=== PATIENT | male | born 1965 | race Caucasian/White ===

== ENCOUNTER 2017-11-20 12:46 | Emergency (ER) | payer OTHER ==
[~2017-11-20] VITALS: Ht 177.8 cm; Wt 109.8 kg
[2017-11-20] MEDS ORDERED: LISINOPRIL10 MG PO (13:07)
[2017-11-20] MEDS ORDERED: LIPITOR40 MG PO (13:08)
[2017-11-20] MEDS ORDERED: HUMULIN N100 UNIT/1 SUB-Q (16:48)
[2017-11-20] MEDS ORDERED: NORVASC10 MG PO (16:49)
[2017-11-20] MEDS ORDERED: PRAVACHOL80 MG PO (16:50)
--- NOTE | 2017-11-20 22:50 | EKG ---
[facility] [address] [facility] [place], [place] [address] Signed Sinus rhythm with 1st degree AV block Nonspecific intraventricular conduction delay ST \T\ Marked T wave abnormality, consider anterolateral ischemia Abnormal ECG No previous ECGs available Confirmed by WENDY PINEDA MD ([id number]) on 11/20/2017 10:50:16 PM Electronically Signed By: WENDY PINEDA MD 11/20/17 2250 PATIENT NAME: JERALD BENDER Electrocardiogram DATE OF : 69 PHYSICIAN: WENDY PINEDA MD REPORT #: [id number] REPORT IS CONFIDENTIAL AND NOT TO BE RELEASED WITHOUT AUTHORIZATION
== END 2017-11-20 16:20 | disposition home or self-care (01) ==
LOC: ED 12:46
DX: R07.9 Chest pain, unspecified (principal); I71.2 Thoracic aortic aneurysm, without rupture; E11.9 Type 2 diabetes mellitus without complications; I10 Essential (primary) hypertension; E78.5 Hyperlipidemia, unspecified; Z88.1 Allergy status to other antibiotic agents; Z79.899 Other long term (current) drug therapy
CPT/HCPCS: 36415; 71045; 71275; 84484; 93005; 93010; 99284; J7030; Q9967

== ENCOUNTER → 2017-11-23 | Emergency (ER) | payer OTHER ==
[~2017-11-23] VITALS: Ht 177.8 cm; Wt 109.8 kg
[~2017-11-23] MED LIST: HUMULIN N100 UNIT/1 SUB-Q; LIPITOR40 MG PO; LISINOPRIL10 MG PO; NORVASC10 MG PO; PRAVACHOL80 MG PO
--- NOTE | 2017-11-24 17:13 | EKG ---
[facility] [address] [facility] [place] [address] Signed Sinus rhythm with 1st degree AV block with premature atrial complexes with aberrant conduction Nonspecific intraventricular conduction delay ST \T\ T wave abnormality, consider anterolateral ischemia Abnormal ECG Similar to EKG from 11/20/17 Confirmed by WENDY PINEDA MD ([id number]) on 11/24/2017 5:13:24 PM Electronically Signed By: WENDY PINEDA MD 11/24/17 1713 PATIENT NAME: BENDERJERALD Electrocardiogram DATE OF : 69 PHYSICIAN: WENDY PINEDA MD REPORT #: [id number] REPORT IS CONFIDENTIAL AND NOT TO BE RELEASED WITHOUT AUTHORIZATION
== END | disposition home or self-care (01) ==
LOC: ED 13:30
DX: R07.2 Precordial pain (principal); I71.2 Thoracic aortic aneurysm, without rupture; E78.5 Hyperlipidemia, unspecified; E11.9 Type 2 diabetes mellitus without complications; I10 Essential (primary) hypertension; Z87.891 Personal history of nicotine dependence; Z88.1 Allergy status to other antibiotic agents; Z88.8 Allergy status to other drugs, medicaments and biological substances; Z79.899 Other long term (current) drug therapy
CPT/HCPCS: 71045; 80053; 84484; 85025; 93005; 93010; 96374; 99285; J1644

== ENCOUNTER → 2018-05-14 | Emergency (ER) | payer OTHER ==
[~2018-05-14] VITALS: Ht 177.8 cm; Wt 107.0 kg
[~2018-05-14] MED LIST changes: +PLAVIX75 MG PO
--- OUTSIDE RECORDS SUMMARY | ~2018-05-14 | XMS | Clinical Summary ---
Demographics + + + | Address | [facility] | | | #[id number] [place] [address] | | |[place] [address] | + + + | Home Phone | | + + + | Preferred Language | Unknown | + + + | Marital Status | Single | + + + | Religion Affiliation | NRP | + + + [...] Phone | + + +---------+ + | NONE,Per Pt | ECON | Unknown | Unavailable | + + +---------+ + Care Team Providers + +------+ + | Care Handbag Designer Name | Role | Phone | + +------+ + | No Pcp Per Patient | PP | Unavailable | + +------+ + Source Comments [facility]YRELL is fully live on [facility] Allergies + + + + + + | Active Allergy | Reactions | Severity | Noted | Comments | | | | | Date | | + + + + + + | Erythromycin | Hives, Rash | | 11/24/19 | | | | | | 18 | | + + + + + + Current Medications + + +--------+---------+------+------+-------+ | Prescription | Sig. | Disp. | Refills | Star | End | Statu | | | | | | t | Date | s | | | | | | Date | | | + + +--------+---------+------+------+-------+ | lisinopril 40 mg | Take 40 mg by mouth | | | | | Activ | | oral | once daily. | | | | | e | | tabletIndications: | Indications: | | | | | | | hypertension | hypertension | | | | | | + + +--------+---------+------+------+-------+ | insulin NPH 100 | Inject 34 Units | | | | | Activ | | unit/mL [...] | | | | | + + +--------+---------+------+------+-------+ | aspirin EC 81 mg | Take 81 mg by mouth | | | | | Activ | | oral [...] | | | | | + + +--------+---------+------+------+-------+ | atorvastatin 80 mg | Take 1 [...] | | | | | + + +--------+---------+------+------+-------+ | carvedilol 6.25 mg | Take 1 tablet by | 60 | 0 | 04/1 | | Activ | | oral | mouth two times | tablet | | 03/29 | | e | | tabletIndications: | daily with meals. | | | 18 | | | | hypertension, Left | Administer with | | | | | | | Ventricular | food. Indications: | | | | | | | Dysfunction | hypertension, Left | | | | | | | following [place] | Ventricular | | | | | | | | Dysfunction | | | | | | | | following [place] | | | | | | + + +--------+---------+------+------+-------+ | clopidogrel 75 mg | Take 1 tablet by | 30 | 11 | 11/08 | | Activ | | oral | mouth once daily. | tablet | | 04/29 | | e | | tabletIndications: | Indications: Acute | | | 18 | | | | Acute Coronary | Coronary Syndrome, | | | | | | | Syndrome, Myocardial | Myocardial | | | | | | | Reinfarction | Reinfarction | | | | | | | Prevention, | Prevention, | | | | | | | Thrombosis | Thrombosis | | | | | | | Prevention after PCI | Prevention after PCI | | | | | | + + +--------+---------+------+------+-------+ | nitroglycerin 0.4 | Place 1 tablet under | 25 | 0 | 11/08 | | Activ | | mg sublingual | tongue every five | tablet | | 03/29 | | e | | tablet, | minutes as needed | | | 18 | | | | sublingualIndication | for chest pain. 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) | | + + + | S/P coronary artery stent placement | 11/25/2017 | + + + | Ischemic cardiomyopathy | 11/25/2017 | + + + | Ascending aortic aneurysm (HCC) | 11/25/2017 | + + + | HLD (hyperlipidemia) | 11/23/2017 | + + + | HTN (hypertension) | 11/23/2017 | + + + | Type 2 diabetes mellitus (HCC) | 11/23/2017 | + + + Social [...] on file | | + + + Last Filed Vital Signs + + + + | Vital Sign | Reading | Time Taken | + + + + | Blood Pressure | 152/86 | 11/25/2017 3:44 PM PDT | + + + + | Pulse | 60 | 11/25/2017 3:44 PM PDT | + + + + | Temperature | 37 C (98.6 F) | 11/25/2017 3:44 PM PDT | + + + + | Respiratory Rate | 18 | 11/25/2017 3:44 PM PDT | + + + + | Oxygen Saturation | 98% | 11/25/2017 3:44 PM PDT | + + + + | Inhaled Oxygen | - | - | | Concentration | | | + + + + | Weight | 106.3 kg (234 lb 5.6 | 11/25/2017 7:41 AM PDT | | | oz) | | + + + + | Height | 177.8 cm (5' 10") | 11/23/2017 8:42 PM PDT | + + + + | Body Mass Index | 33.63 | 11/25/2017 7:41 AM PDT | + + + + Plan of Treatment + + + + + | Health Maintenance | Due Date | Last Done | Comments | + + + + + | Pneumococcal (Adult) | | | | | (1 of 1 - PPSV23) | 7 | | | + + + + + | Influenza (Flu) | | 05/08/2013, 05/24/2012, | | | vaccination (#1) | 8 | 06/18/2011, Additional history | | | | | exists | | + + + + + Implants + +-------+-------+ +--------+--------+--------+ | Implanted | Type | Area | Manufacture | Device | Expira | Model | | | | | r | | tion | / | | | | | | Identi | Date | Serial | | | | | | fier | | / Lot | + +-------+-------+ +--------+--------+--------+ | Stent-11/24/2017Implanted: | STENT | Chest | | | 08/10/ | / | | Qty: 1 on 11/24/2017 by | | | | | 2020 | /[id number] | | [place] | | | | | | [id number] | + +-------+-------+ +--------+--------+--------+ | Stent-11/24/2017Implanted: | STENT | Chest | | | 01/09/ | / | | Qty: 1 on 11/24/2017 by | | | | | 2018 | /[id number] | | Felice Dele[place] | | | | | | [id number] | + +-------+-------+ +--------+--------+--------+ Results Not on filefrom Last 3 Months Insurance + +--------+ +--------+ + + | Payer | Benefi | Subscriber | Type | Phone | Address | | | t Plan | ID | | | | | | / | | | | | | | Group | | | | | + +--------+ +--------+ + + | [facility] | [facility] | xxxxxxxxx | Agency | [phone] | [address] [address] | | PARTNER | [address] | | | [phone] | [place] [address] | | | HLTH | | | | | | | PARTNE | | | | | | | [address] | | | | | | | [place] | | | | | + +--------+ +--------+ + + + +--------+ +--------+ + + | Guarantor Name | Accoun | Relation to | Date | Phone | Billing Address | | | t Type | Patient | of | | | | | | | | | | + +--------+ +--------+ + + | JERALD BENDER | Person | Self [birth year] | Home: | [facility] | | | al/Fam | | 1965 | [phone] | Correctional | | | karan | | | [phone] | [address] | | | | | | | [address] | | | | | | | [place] [address] | + +--------+ +--------+ + + | [facility] | Agency | Other | [birth year] | Home: | [place] | | [place] | | | 1899 | [phone]- | Correctional | | | | | | [phone] | [facility] [address] | | | | | | | [address] | | | | | | | [place] [address] | + +--------+ +--------+ + +
--- OUTSIDE RECORDS SUMMARY | ~2018-05-14 | XMS | Clinical Summary ---
Demographics + + + | Address | [facility] | | | [id number] [place] [address] | | |[place] [address] | + + + | Home Phone | | + + + | Preferred Language | Unknown | + + + | Marital Status | Single | + + + | Rastafari Affiliation | NRP | + + + [...] Team Providers + +------+ + | Care Materials Handling Equipment Operator Name | Role | Phone | + +------+ + | No Pcp Per Patient | PP | Unavailable | + +------+ + Source Comments [facility]LL is fully live [facility] Allergies + + + + [...] | | | | | | following [place] | Ventricular | | | | | | | | Dysfunction | | | | | | | | following IN | | | | | | + [...] + + | Coronary artery disease involving [place] coronary artery of | 11/25/2017 | | tejon heart with unstable angina pectoris (HCC) | [...] | | | | | 2020 | /[id number] | | [place]ice [place] | | | | | | [address] | + +-------+-------+ +--------+--------+--------+ | Stent-11/24/2017Implanted: | STENT | Chest | | | 01/09/ | / | | Qty: 1 on 11/24/2017 by | | | | | 2018 | /[id number] | | Felice De[place] | | | | | | [address] | + +-------+-------+ +--------+--------+--------+ Results Not on [...] | [facility] | [phone] | Agency | [phone] | [address] [address] | | PARTNER | [address] | | | [phone] | [place] [address] | | | HLTH | | | [...] | + +--------+ +--------+ + + | EJRALD BENDER | Person | Self | [birth year] | Home: | [facility] | | | al/Fam | | 1965 | [phone] | Correctional | | | [address]aran | | | [phone] | [address] | | | | | | | [address] | | | | | | | [place] [address] | + +--------+ +--------+ + + | [facility] | Agency | Other | [birth year]/10/ | Home: | [place] | | [place] | | | 1899 | [phone]- | Correctional | | | | | | [phone] | [facility] [address] | | | | | | | [address] | | | | | | | [place] [address] | + +--------+ +--------+ + +
--- NOTE | 2018-05-14 19:40 | EKG ---
[facility] [address] [facility] [place] [address] Signed Sinus rhythm with 1st degree AV block Nonspecific intraventricular conduction delay Borderline ECG When compared with ECG of 23-NOV-2017 13:31, aberrant conduction is no longer present Nonspecific T wave abnormality, improved in Inferior leads T wave inversion no longer evident in Anterolateral leads Confirmed by AUSTIN MINAYA DO ([id number]) on 05/14/2018 7:39:54 PM Electronically Signed By: AUSTIN MINAYA DO 05/14/18 194 PATIENT NAME: NAPOLEONJERALD Electrocardiogram DATE OF : 69 PHYSICIAN: AUSTIN MINAYA DO REPORT #: [id number] REPORT IS CONFIDENTIAL AND NOT TO BE RELEASED WITHOUT AUTHORIZATION
--- NOTE | 2018-05-17 13:59 | NUR ---
ER NOTES AND SUMMARY FAXED TO [facility] PER RADHA REQUEST. RECIEVED FAX CONFIRMATION OF THIS.
== END ==
LOC: ED 18:46
DX: I10 Essential (primary) hypertension (principal); E87.6 Hypokalemia; E11.9 Type 2 diabetes mellitus without complications; E78.5 Hyperlipidemia, unspecified; Z88.1 Allergy status to other antibiotic agents; Z79.4 Long term (current) use of insulin; Z79.899 Other long term (current) drug therapy
CPT/HCPCS: 71045; 80053; 85025; 93005; 93010; 96374; 96375; 99284; J0360; J2405

== ENCOUNTER 2019-12-15 18:14 | Emergency (ER) | payer OTHER ==
[~2019-12-15] VITALS: Ht 177.8 cm; Wt 107.0 kg
--- OUTSIDE RECORDS SUMMARY | ~2019-12-15 | XMS | Encounter Summary ---
Demographics + + + | Address | [facility] | | | [id number] [place] [address] | | |[place] [address] | + + + | Home Phone | | + + + | Preferred Language | Unknown | + + + | Marital Status | Single | + + + | Presybeterian Affiliation | NRP | + + + | Race | White | + + + | Ethnic Group | Not or | + + + Author + + + | Author | [facility] | + + + | Organization | [facility] | + + + | Address | Unknown | + + + | Phone | Unavailable | + + + Support + + +---------+ + | Name | Relationship | Address | Phone | + + +---------+ + | Per NONE, PT | ECON | Unknown | Unavailable | + + +---------+ + Care Team Providers + +------+ + | Care Manager Process Excellence Name | Role | Phone | + +------+ + PCP | Unavailable | + +------+ + Encounter Details +--------+ + + + + | Date | Type | Department | Care Team | Description | +--------+ + + + + | 11/23/ | ED Progress | [facility] | Aj Farnsworth | ED Progress Note | | 2013 | | [address] | MD [place] Healy | | | | Note-Transc | [place], [place] | [facility] | | | | ribed | [phone] | [address] | | | | | | [place] [address] | | | | | | [phone] | | | | | | | | +--------+ + + + + Social History + +-------+ +--------+------+ | Tobacco Use | Types | Packs/Day | Years | Date | | | | | Used | | + +-------+ +--------+------+ | Never Assessed | | | | | + +-------+ +--------+------+ + + + | Sex Assigned at | Date Recorded | | | | + + + | Not on file | | + + + + + + + | Job Start Date | Occupation | Industry | + + + + | Not on file | Not on file | Not on file | + + + + + + + + | Travel History | Travel Start | Travel End | + + + + + + | No recent travel history available. | + + documented as of this encounter Plan of Treatment Not on filedocumented as of this encounter Visit Diagnoses Not on filedocumented in this encounter"
--- OUTSIDE RECORDS SUMMARY | ~2019-12-15 | XMS | Encounter Summary ---
Demographics + + + | Address | [facility] | | | [id number] [place] [address] | | |[place] [address] | + + + | Home Phone | | + + + | Preferred Language | Unknown | + + + | Marital Status | Single | + + + | Rastafarian Affiliation | NRP | + + + | Race | White | + + + | Ethnic Group | Not or | + + + Author + + + | Author | [place] [facility] | + + + | Organization | [facility] | + + + | Address | Unknown | + + + | Phone | Unavailable | + + + Support + + +---------+ + | Name | Relationship | Address | Phone | + + +---------+ + | Per NONE, PT | ECON | Unknown | Unavailable | + + +---------+ + Care Team Providers + +------+ + | Care Graduate Internship Name | Role | Phone | + +------+ + | No Pcp Per Patient | PCP | Unavailable | + +------+ + Reason for Visit AUTH/CERT +--------+--------+ + + + + | Status | Reason | Specialty | Diagnoses / | Referred By | Referred To | | | | | Procedures | Contact | Contact | +--------+--------+ + + + + | | | | | | | +--------+--------+ + + + + Encounter Details +--------+ + + + + | Date | Type | Department | Care Team | Description | +--------+ + + + + | 11/24/ | Hospital | Cardiac General Ledger Bookkeeper | [address] | No Show | | 2017 | Encounter | at [facility] [address] | MD Willi [address] | | | | | [address] | [place], [place] | | | | | [facility], | [address] | | | | | [place], [place] | [phone] | | | | | [address] | | | | | | [phone] | | | +--------+ + + + [...] + + documented as of this encounter Functional Status + + + + | Functional Status | Response | Date of Assessment | + + + + | Because of a physical, mental, or emotional | No | 11/24/2017 | | condition, do you have serious difficulty | | | | doing errands alone such as visiting the | | | | doctor? | | | + + + + + + + + | Cognitive Status | Response | Date of Assessment | + + + + | Because of a physical, mental, or emotional | No | 11/24/2017 | | condition, do you have serious difficulty | | | | concentrating, remembering, or making | | | | decisions? (5 years old or older) | | | + + + + documented as of this encounter Medications at Time of Discharge + + + +---------+ + + | Medication | Sig | Dispensed | Refills | Start | End Date | | | | | | Date | | + + + +---------+ + + | aspirin EC 81 mg | Take 81 mg by mouth | | 0 | | | | oral tablet,delayed | once daily. | | | | | | release | Indications: | | | | | | (DR/EC)Indications: | myocardial | | | | | | myocardial | infarction | | | | | | infarction | prevention | | | | | | prevention | | | | | | + + + +---------+ + + | atorvastatin 80 mg | Take 1 tablet by | 30 | 0 | 11/27/19 | | | oral | mouth once daily. | tablet | | 18 | | | tabletIndications: | Indications: | | | | | | atherosclerotic | atherosclerotic | | | | | | cardiovascular | cardiovascular | | | | | | disease, | disease, | | | | | | hyperlipidemia, | hyperlipidemia, | | | | | | myocardial | myocardial | | | | | | infarction | infarction | | | | | | prevention, | prevention, | | | | | | treatment to slow | treatment to slow | | | | | | progression of | progression of | | | | | | coronary artery | coronary artery | | | | | | disease | disease | | | | | + + + +---------+ + + | carvedilol 6.25 mg | Take 1 tablet by | 60 | 0 | 11/26/19 | | | oral | mouth two times | tablet | | 18 | | | tabletIndications: | daily with meals. | | | | | | hypertension, left | Administer with | | | | | | ventricular | food. Indications: | | | | | | dysfunction | hypertension, Left | | | | | | following [place] | Ventricular | | | | | | | Dysfunction | | | | | | | following MS | | | | | + + + +---------+ + + | clopidogrel 75 mg | Take 1 tablet by | 30 | 11 | 11/27/19 | | | oral | mouth once daily. | tablet | | 18 | | | tabletIndications: | Indications: Acute | | | | | | acute coronary | Coronary Syndrome, | | | | | | syndrome, myocardial | Myocardial | | | | | | reinfarction | Reinfarction | | | | | | prevention, | Prevention, | | | | | | thrombosis | Thrombosis | | | | | | prevention after PCI | Prevention after PCI | | | | | + + + +---------+ + + | insulin NPH 100 | Inject 34 Units | | 0 | | | | unit/mL (3 mL) | under the skin | | | | | | subcutaneous insulin | (SUBC) once daily in | | | | | | penIndications: | the morning. | | | | | | type 2 diabetes | Indications: type 2 | | | | | | mellitus | diabetes mellitus | | | | | + + + +---------+ + + | lisinopril 40 mg | Take 40 mg by mouth | | 0 | | | | oral | once daily. | | | | | | tabletIndications: | Indications: | | | | | | hypertension | hypertension | | | | | + + + +---------+ + + | nitroglycerin 0.4 | Place 1 tablet under | 25 | 0 | 04/18/20 | | | mg sublingual | tongue every five | tablet | | 18 | | | tablet, | minutes as needed | | | | | | sublingualIndication | for chest pain. | | | | | | s: angina | Place under tongue | | | | | | | and allow to | | | | | | | dissolve. | | | | | | | Administer every 5 | | | | | | | minutes, max of 3 | | | | | | | doses in 15 minutes. | | | | | | | Indications: Angina | | | | | + + + +---------+ + + documented as of this encounter Plan of Treatment + + +--------+ + + | Name | Type | Priori | Associated Diagnoses | Order Schedule | | | | ty | | | + + +--------+ + + | ACT, POC-CCL ONLY | Lab - Point | Routin | | As Needed for 10 | | | of Care | e | | Occurrences starting | | | Interface | | | 11/26/2017, 3 | | | | | | completed | + + +--------+ + + documented as of this encounter Procedures + +--------+ + + + | Procedure Name | Priori | Date/Time | Associated Diagnosis | Comments | | | ty | | | | + +--------+ + + + | ACT, POC-CCL ONLY | Routin | 11/24/2017 | | Results for this | | | e | 2:46 PM | | procedure are in the | | | | PDT | | results section. | + +--------+ + + + | ACT, POC-CCL ONLY | Routin | 11/24/2017 | | Results for this | | | e | 2:28 PM | | procedure are in the | | | | PDT | | results section. | + +--------+ + + + | ACT, POC-CCL ONLY | Routin | 11/24/2017 | | Results for this | | | e | 2:23 PM | | procedure are in the | | | | PDT | | results section. | + +--------+ + + + | CAMP BOSS | Routin | 11/24/2017 | | Results for this | | EMERGENT/IMMEDIATE | e | 2:17 PM | | procedure are in the | | PROCEDURE | | PDT | | results section. | + +--------+ + + + | CARDIOLOGY | | 11/24/2017 | | Results for this | | | | 12:00 AM | | procedure are in the | | | | PDT | | results section. | + +--------+ + + + documented in this encounter Results SILVIA MAZARIEGOS-CCL ONLY (11/24/2017 2:46 PM PDT) + +-------+ + + + | Component | Value | Ref Range | Performed | Pathologist | | | | | At | Signature | + +-------+ + + + | ACT, POC | 193 | 90 - 150 | [facility] | | | [facility] | | | [facility] | | | [facility] | | | [facility] | | | | | | OF CARE | | | | | | TESTS | | + +-------+ + + + + + | Specimen | + + | Blood - Blood | | (substance) | + + + + + + + | Performing | Address | City/State/Zipcode | Phone Number | | Organization | | | | + + + + + | [facility] | [address] | [place], [place] | | | [facility] | [address] | [address] | | | TESTS | | | | + + + + + ACT POC-CCL ONLY (11/24/2017 2:28 PM PDT) + +-------+ + + + | Component | Value | Ref Range | Performed | Pathologist | | | | | At | Signature | + +-------+ + + + | ACT, POC | 227 | 90 - 150 | [facility] - | | | CCL | | | [facility] | | | INTR[facility] | | | [facility] | | | | | | OF CARE | | | | | | TESTS | | + +-------+ + + + + + | Specimen | + + | Blood - Blood | | (substance) | + + + + + + + | Performing | Address | City/State/Zipcode | Phone Number | | Organization | | | | + + + + + | [facility] | [address] | [place], [place] | | | [facility] | [address] | [address] | | | TESTS | | | | + + + + + ACT, POC-CCL ONLY (11/24/2017 2:23 PM PDT) + +-------+ + + + | Component | Value | Ref Range | Performed | Pathologist | | | | | At | Signature | + +-------+ + + + | ACT, POC | 163 | 90 - 150 | [facility] | | | [facility] | | | [facility] | | | [facility]TR[facility] | | | [place] | | | | | | OF CARE | | | | | | TESTS | | + +-------+ + + + + + | Specimen | + + | Blood - Blood | | (substance) | + + + + + + + | Performing | Address | City/State/Zipcode | Phone Number | | Organization | | | | + + + + + | [facility] | [address] | [place], [place] | | | [place] [facility] | [address] | [address] | | | TESTS | | | | + + + + + CAMP BOSS EMERGENT/IMMEDIATE PROCEDURE (11/24/2017 2:17 PM PDT) + + | Specimen | + + | | + + + + + | Narrative | Performed At | + + + | Procedure performed in the Cardiac General Ledger Bookkeeper. See procedure notes | | | for details. | | + + + CARDIOLOGY (11/24/2017 12:00 AM PDT) + + + | Narrative | Performed At | + + + | | | + + + documented in this encounter Visit Diagnoses Not on filedocumented in this encounter"
--- OUTSIDE RECORDS SUMMARY | ~2019-12-15 | XMS | Encounter Summary ---
Demographics + + + | Address | [facility] | | | [id number] [place] [address] | | |[place] [address] | + + + | Home Phone | | + + + | Preferred Language | Unknown | + + + | Marital Status | Single | + + + | Christian Affiliation | NRP | + + + | Race | White | + + + | Ethnic Group | Not or | + + + Author + + + | Author | [place] [facility] | + + + | Organization | [facility] | + + + | Address | Unknown | + + + | Phone | Unavailable | + + + Support + + +---------+ + | Name | Relationship | Address | Phone | + + +---------+ + | Per NONE, PT | ECON | Unknown | Unavailable | + + +---------+ + Care Team Providers + +------+ + | Care Medical Auditor Name | Role | Phone | + +------+ + | No Pcp Per Patient | PCP | Unavailable | + +------+ + Encounter Details +--------+ + + + + | Date | Type | Department | Care Team | Description | +--------+ + + + + | 11/20/ | Document-Sc | Health Information | Unknown . | | | 2018 | anned | Services [id number] | | | | | [address] | | | | | | Mailcode: [id number] | | | | | | [facility] | | | | | | [place], [place] | | | | | | [address] | | | | | | [phone] | | | +--------+ + + + [...] Not on filedocumented as of this encounter Procedures + +--------+ + + + | Procedure Name | Priori | Date/Time | Associated Diagnosis | Comments | | | ty | | | | + +--------+ + + + | RADIOLOGY | | 11/20/2017 | | Results for this | | | | 12:00 AM | | procedure are in the | | | | PDT | | results section. | + +--------+ + + + documented in this encounter Results RADIOLOGY (11/20/2017 12:00 AM PDT) + + + | Narrative | Performed At | + + + | | | + + + documented in this encounter Visit Diagnoses Not on filedocumented in this encounter"
--- OUTSIDE RECORDS SUMMARY | ~2019-12-15 | XMS | Encounter Summary ---
Demographics + + + | Address | [facility] | | | #[id number] [place] [address] | | |[place] [address] | + + + | Home Phone | | + + + | Preferred Language | Unknown | + + + | Marital Status | Single | + + + | Restoration Affiliation | NRP | + + + | Race | White | + + + | Ethnic Group | Not or | + + + Author + + + | Author | [facility] | + + + | Organization | [facility] | + + + | Address | Unknown | + + + | Phone | Unavailable | + + + Support + + +---------+ + | Name | Relationship | Address | Phone | + + +---------+ + | Per NONE, PT | ECON | Unknown | Unavailable | + + +---------+ + Care Team Providers + +------+ + | Care Tree Inspector Name | Role | Phone | + [...] + | 11/24/ | Hospital | [facility] | [address] | No Show | | 2017 | Encounter | at [facility] [address] | MD Willi [address] | | | | | [address] | [place], [place] | | | | | [facility] | [address] | | | | | [place], [place] | [phone] | | | | | [address] | | | | | | [phone] | | | +--------+ + + + [...] | | | | | | following [place] | Ventricular | | | | | | | Dysfunction | | | | | | | following [place] | | | | | + + [...] | + +--------+ + + + | [facility] | Routin | 11/24/2017 | | Results [...] - [place] | [address] | [place], [place] | | | [facility] | [address] | [address] | | | TESTS | | | [...] [place] | [address] | [place], [place] | | | [facility] | [address] | [address] | | | TESTS | | | [...] [facility] | [address] | [place], [place] | | | [facility] | [address] | [address] | | | TESTS | | | | + + + + + [facility] EMERGENT/IMMEDIATE PROCEDURE (11/24/2017 2:17 PM PDT) + + | Specimen | + + | | + + + + + | Narrative | Performed At | + + + | Procedure performed in the [facility]. See procedure notes | | | for details. | | + + + CARDIOLOGY (11/24/2017 12:00 AM PDT) + + + | Narrative | Performed At | + + + | | | + + + documented in this encounter Visit Diagnoses Not on filedocumented in this encounter"
--- OUTSIDE RECORDS SUMMARY | ~2019-12-15 | XMS | Clinical Summary ---
Demographics + + + | Address | [facility] | | | [address] [place] [address] | | |[place] [address] | + + + | Home Phone | | + + + | Preferred Language | Unknown | + + + | Marital Status | Single | + + + | Mormon Affiliation | NRP | + + + | Race | White | + + + | Ethnic Group | Not or | + + + Author + + + | Author | [facility] | + + + | Organization | [facility] | + + + | Address | Unknown | + + + | Phone | Unavailable | + + + Support + + +---------+ + | Name | Relationship | Address | Phone | + + +---------+ + | Per NONE, PT | ECON | Unknown | Unavailable | + + +---------+ + Care Team Providers + +------+ + | Care Payroll Services Analyst Name | Role | Phone | + +------+ + | No Pcp Per Patient | PCP | Unavailable | + +------+ + Source Comments TYRELL is fully live on both EpicCare Ambulatory and EpicCare InPatient.[facility] Allergies + + + + + + | Active Allergy | Reactions | Severity | Noted | Comments | | | | | Date | | + + + + + + | Erythromycin | Hives, Rash | | 11/24/19 | | | | | | 18 | | + + + + + + Medications + + + +---------+------+------+-------+ | Medication | Sig | Dispensed | Refills | Star | End | Statu | | | | | | t | Date | s | | | | | | Date | | | + + + +---------+------+------+-------+ | lisinopril 40 mg | Take 40 mg by mouth | | 0 | | | Activ | | oral | once daily. | | | | | e | | tabletIndications: | Indications: | | | | | | | hypertension | hypertension | | | | | | + + + +---------+------+------+-------+ | insulin NPH 100 | Inject 34 Units | | 0 | | | Activ | | unit/mL (3 mL) | under the skin | | | | | e | | subcutaneous insulin | (SUBC) once daily in | | | | | | | penIndications: | the morning. | | | | | | | type 2 diabetes | Indications: type 2 | | | | | | | mellitus | diabetes mellitus | | | | | | + + + +---------+------+------+-------+ | aspirin EC 81 mg | Take 81 mg by mouth | | 0 | | | Activ | | oral tablet,delayed | once daily. | | | | | e | | release | Indications: | | | | | | | (DR/EC)Indications: | myocardial | | | | | | | myocardial | infarction | | | | | | | infarction | prevention | | | | | | | prevention | | | | | | | + + + +---------+------+------+-------+ | atorvastatin 80 mg | Take 1 tablet by | 30 | 0 | 04/ | | Activ | | oral | mouth once daily. | tablet | | 04/29 | | e | | tabletIndications: | Indications: | | | 18 | | | | atherosclerotic | atherosclerotic | | | | | | | cardiovascular | cardiovascular | | | | | | | disease, | disease, | | | | | | | hyperlipidemia, | hyperlipidemia, | | | | | | | myocardial | myocardial | | | | | | | infarction | infarction | | | | | | | prevention, | prevention, | | | | | | | treatment to slow | treatment to slow | | | | | | | progression of | progression of | | | | | | | coronary artery | coronary artery | | | | | | | disease | disease | | | | | | + + + +---------+------+------+-------+ | carvedilol 6.25 mg | Take 1 tablet by | 60 | 0 | 11/08 | | Activ | | oral | mouth two times | tablet | | 03/29 | | e | | tabletIndications: | daily with meals. | | | 18 | | | | hypertension, left | Administer with | | | | | | | ventricular | food. Indications: | | | | | | | dysfunction | hypertension, Left | | | | | | | following [place] | Ventricular | | | | | | | | Dysfunction | | | | | | | | following [place] | | | | | | + + + +---------+------+------+-------+ | clopidogrel 75 mg | Take 1 tablet by | 30 | 11 | 11/08 | | Activ | | oral | mouth once daily. | tablet | | 04/29 | | e | | tabletIndications: | Indications: Acute | | | 18 | | | | acute coronary | Coronary Syndrome, | | | | | | | syndrome, myocardial | Myocardial | | | | | | | reinfarction | Reinfarction | | | | | | | prevention, | Prevention, | | | | | | | thrombosis | Thrombosis | | | | | | | prevention after PCI | Prevention after PCI | | | | | | + + + +---------+------+------+-------+ | nitroglycerin 0.4 | Place 1 tablet under | 25 | 0 | 04/ | | Activ | | mg sublingual | tongue every five | tablet | | 03/29 | | e | | tablet, | minutes as needed | | | 18 | | | | sublingualIndication | for chest pain. 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 | + + Last Filed Vital Signs + + + + + | Vital Sign | Reading | Time Taken | Comments | + + + + + | Blood Pressure | 152/86 | 11/25/2017 3:44 PM | | | | | PDT | | + + + + + | Pulse | 60 | 11/25/2017 3:44 PM | | | | | PDT | | + + + + + | Temperature | 37 C (98.6 F) | 11/25/2017 3:44 PM | | | | | PDT | | + + + + + | Respiratory Rate | 18 | 11/25/2017 3:44 PM | | | | | PDT | | + + + + + | Oxygen Saturation | 98% | 11/25/2017 3:44 PM | | | | | PDT | | + + + + + | Inhaled Oxygen | - | - | | | Concentration | | | | + + + + + | Weight | 106.3 kg (234 lb 5.6 | 11/25/2017 7:41 AM | | | | oz) | PDT | | + + + + + | Height | 177.8 cm (5' 10") | 11/23/2017 8:42 PM | | | | | PDT | | + + + + + | Body Mass Index | 33.63 | 11/23/2017 8:42 PM | | | | | PDT | | + + + + + Plan of Treatment + + + + + | Health Maintenance | Due Date | Last Done | Comments | + + + + + | Pneumococcal | | | | | vaccination (1 of 1 | 4 | | | | - PPSV23) | | | | + + + + + | Influenza (Flu) | | 05/08/2013, 05/24/2012, | | | vaccination (#1) | 9 | 06/18/2011, Additional history | | | | | exists | | + + + + + Implants + +-------+-------+ +--------+--------+--------+ | Implanted | Type | Area | Manufacture | Device | Shelf | Model | | | | | r | | Expira | / | | | | | | Identi | tion | Serial | | | | | | fier | Date | / Lot | + +-------+-------+ +--------+--------+--------+ | Stent-11/24/2017Implanted: | STENT | Chest | | | 08/10/ | / | | Qty: 1 on 11/24/2017 by | | | | | 2020 | /[id number] | | Felice De[place] | | | | | | [id number] | + +-------+-------+ +--------+--------+--------+ + + | Description:Ref #, | | [id number] | + + + +-------+-------+---+---+--------+--------+ | Stent-11/24/2017Implanted: | STENT | Chest | | | 01/09/ | / | | Qty: 1 on 11/24/2017 by | | | | | 2019 | /[id number] | | Felice Deleon [place] | | | | | | [id number] | + +-------+-------+---+---+--------+--------+ + + | Description:Ref #, | | [id number] | + + Results Not on filefrom Last 3 Months Insurance + +--------+ +--------+ + +--------+ | Payer | Benefi | Subscriber | Effect | Phone | Address | Type | | | t Plan | ID | mario | | | | | | / | | Dates | | | | | | Group | | | | | | + +--------+ +--------+ + +--------+ | [facility] | CORREC | xxxxxxxxx | | [phone] | [address] | Agency | | PARTNER | [place] | | [phone] | | | | HLTH | | esent | | [place], [place] | | | | [place] | | | | [phone] | | | | [address] | | | | | | | | [place] | | | | | | + +--------+ +--------+ + +--------+ + +--------+ +--------+ + + | Guarantor Name | Accoun | Relation to | Date | Phone | Billing Address | | | t Type | Patient | of | | | | | | | | | | + +--------+ +--------+ + + | Cooper Lewis | Person | Self | [birth year] | [place] [place] | | | al/Fam | | 1966 | [phone] | [facility] | | | karan | | | 3 (Home) | [facility] [address] | | | | | | | [address] | | | | | | | [place] [address] | + +--------+ +--------+ + + | [facility] SPEAR | Agency | Other | [birth year] | | [facility] | | [place] | | | 1899 | [phone] | Correctional | | | | | | 3 (Home) | [facility] [address] | | | | | | | [address] | | | | | | | [place] [address] | + +--------+ +--------+ + + Advance Directives + + + + + | Code Status | Date | Date | Comments | | | Activated | Inactivated | | + + + + + | Full Code | 11/23/2017 | 11/25/2017 | | | | 8:27 PM | 10:09 PM | | + + + + +
--- OUTSIDE RECORDS SUMMARY | ~2019-12-15 | XMS | Clinical Summary ---
Demographics + + + | Address | [facility] | | | [id number] [place] [address] | | |[place] [address] | + + + | Home Phone | | + + + | Preferred Language | Unknown | + + + | Marital Status | Single | + + + | Lutheran Affiliation | NRP | + + + [...] Team Providers + +------+ + | Care Die Cast Engineer Name | Role | Phone | + +------+ + | No Pcp Per Patient | PCP | Unavailable | + +------+ + Source Comments TYRELL is fully live on both EpicCare Ambulatory and EpicCare InPatient.[facility] Allergies + + + + + + [...] | | | | | | following [place] | Ventricular | | | | | | | | Dysfunction | | | | | | | | following [place] | | | | | | + [...] + + | Coronary artery disease involving [place] coronary artery of | 11/25/2017 | | squax[place] heart with unstable angina pectoris | | [...] | | | | | 2020 | /[id number] | | Felice Deleon [place] | | | | | | [id number] | + +-------+-------+ +--------+--------+--------+ + + | Description:Ref #, | | [id number] | + + + +-------+-------+---+---+--------+--------+ | Stent-11/24/2017Implanted: | STENT | Chest | | | 01/09/ | / | | Qty: 1 on 11/24/2017 by | | | | | 2019 | /[id number] | | Felice Deleon [place] | | | | | | [id number] | + +-------+-------+---+---+--------+--------+ + + | Description:Ref #, | | [id number] | + + Results Not on filefrom [...] HEALTH | CORREC | xxxxxxxxx | | [phone] | [address] | Agency | | PARTNER | [place] | | [phone] | | | | HLTH | | esent | | [place], [place] | | | | [place] | | | | [phone] | | | | [address] | [...] | Self | [birth year] | | [place] [place] | | | al/Fam | | 1966 | [phone] | Correctional | | | karan | | | 3 (Home) | [address] | | | | | | | [address] | | | | | | | [place] [address] | + +--------+ +--------+ + + | [facility] | Agency | Other | [birth year]/10[birth year] | | [facility] | | [place] | | | 1899 | [phone] | Correctional | | | | | | 3 (Home) | [address] | | | | | | | [address] | | | | | | | [place] [address] | + +--------+ +--------+ + + Advance [...]
--- OUTSIDE RECORDS SUMMARY | ~2019-12-15 | XMS | Encounter Summary ---
Demographics + + + | Address | [facility] | | | [address] [place] [address] | | |[place] [address] | + + + | Home Phone | | + + + | Preferred Language | Unknown | + + + | Marital Status | Single | + + + | Mormonism Affiliation | NRP | + + + | Race | White | + + + | Ethnic Group | Not or | + + + Author + + + | Author | [facility] | + + + | Organization | [facility] | + + + | Address | Unknown | + + + | Phone | Unavailable | + + + Support + + +---------+ + | Name | Relationship | Address | Phone | + + +---------+ + | Per NONE, PT | ECON | Unknown | Unavailable | + + +---------+ + Care Team Providers + +------+ + | Care Signal Tower Operator Name | Role | Phone | + [...] | | 2018 | anned | [id number] | | | | | | [address] | | | | | | Mailcode: [id number] | | | | | | [facility] | | | | | | [place], [place] | | | | | | [address] | | | | | | [phone] | | | +--------+ + + + [...]
--- OUTSIDE RECORDS SUMMARY | ~2019-12-15 | XMS | Encounter Summary ---
Demographics + + + | Address | [facility] | | | [id number] [place] [address] | | |[place] [address] | + + + | Home Phone | | + + + | Preferred Language | Unknown | + + + | Marital Status | Single | + + + | Catholic Affiliation | NRP | + + + | Race | White | + + + | Ethnic Group | Not or | + + + Author + + + | Author | [employer] [facility] | + + + | Organization | [facility] [facility] | + + + | Address | Unknown | + + + | Phone | Unavailable | + + + Support + + +---------+ + | Name | Relationship | Address | Phone | + + +---------+ + | Per NONE, PT | ECON | Unknown | Unavailable | + + +---------+ + Care Team Providers + +------+ + | Care Hvac Operations Technician Name | Role | Phone | + +------+ + | No Pcp Per Patient | PCP | Unavailable | + +------+ + Reason for Referral Rehabilitation Therapy (Routine) +--------+--------+ + + + + | Status | Reason | Specialty | Diagnoses / | Referred By | Referred To | | | | | Procedures | Contact | Contact | +--------+--------+ + + + + | Closed | | Physical | Procedures | [facility] | [facility] | | | | Therapy | CONSULT TO | Felice Healy, | [facility] | | | | | CARDIAC | MD [address] | [address] | | | | | [facility] | Guy Brando | Kianna | | | | | | Ventura Yeung | Mailcode: | | | | | | [place], [place] | [address] | | | | | | [address] | for Health | | | | | | Phone: | and Healing, | | | | | | [phone] | [address] | | | | | | Fax: | [place], [place] | | | | | | [phone] | [address] | | | | | | | Phone: | | | | | | | [phone] | | | | | | | Fax: | | | | | | | [phone] | +--------+--------+ + + + + Reason for Visit + + + | Reason | Comments | + + + | Chest pain | | + + + AUTH/CERT +--------+--------+ + + + + | [...] + + + + | 11/23/ | Hospital | [facility] [address] | Chelsey Ritter MD | | | 2018 - | Encounter | [address] [id number] | [address] | | | | | [facility] | [place], [place] | | | 11/25/ | | [place], [place] | [address] | | | 2017 | | [address] | [phone] | | | | | [phone] | | | +--------+ + + + [...] + + documented as of this encounter Last Filed Vital Signs + + + [...] | | + + + + + documented in this encounter Functional Status + + + [...] + + documented as of this encounter Discharge Summaries Shanthi Bernardo PA-C - 11/25/2017 10:18 AM PDTFormatting of this note might be different f rom the original. 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 At [facility], troponin was mildly elevated, EKG unremarka ble, CT chest showed extensive coronary calcification, and a 4.8cm ascending aortic aneurysm was identified. He was discharged and scheduled for an exercise stress test 11/23 which was positive (chest pain, diaphoresis, ST elevation then diffuse precordial TWI) and he was refe rred back to the ED. He was accepted in transfer to [facility] and initiated on a heparin gtt in a nticipation of coronary angiogram for unstable angina. Here, TTE revealed decreased LV function (EF 35%) with significant akinesis and hypokinesis in segmental pattern. Troponin was detectible but not reaching NSTEMI threshold. EKG withou t acute ischemic pattern, but nonspecific TWI/flattening. He underwent coronary angiogram on 11/24 which revealed a severe mid LAD lesion and a severe distal RCA lesion; both lesions we re stented with KAIA. He was initiated on plavix. His BP medications were adjusted for HTN co ntrol and for LV dysfunction: we changed amlodipine to carvedilol and continued home dose of lisinopril 40mg daily. We also changed simvastatin to atorvastatin for better control. He w ill need to be referred to cardiac rehab and a Art Education Professor within the correctional system. He will need a 3-month follow up TTE to evaluate LV function and yearly TTEs to monitor asce nding thoracic aneurysms. The following problems were addressed this hospitalization: #Unstable angina #Coronary artery disease Pt experienced sudden CP on 11/10 lasting 30 min, followed by daily exertional angina that re solved with rest. No known h/o CAD. Underwent exercise stress test on 11/23 which caused sque ezing chest pain, diaphoresis and SOB with associated ST elevations of V2, V3; EKG evolved t o diffuse deep TWI of precordial leads. Transferred for further care of suspected coronary a rtery disease and unstable angina (possible plaque rupture on 11/10?). Troponin detectible her e (0.23) and not meeting NSTEMI criteria, but suspect this is down-trending from late-presen ting NV that likely occurred on 11/10. EKG without active ischemia. TTE showing reduced EF of 35% with segmental abnormalities (see above). Coronary angiogram today revealed mid LAD and distal RCA lesions, which will be treated with PCI. - cont ASA 81mg indefinitely - cont plavix 75mg daily thereafter x 1 year minimum (11/24/18) - cont atorvastatin 80mg daily - cont carvedilol 6.25mg bid; limited at this time for dose increase due to bradycardia - resume home lisinopril 40mg daily - stopped amlodipine - cont SL NTG for chest pain prn - consider IMDUR if needed if recurrent angina in future - will need to establish with a Art Education Professor - cardiac rehab #Ischemic cardiomyopathy: NYHA class I, stage B. Etiology CAD as above. TTE shows reduced EF 35% with segmental abnor malities (akinesis of apical lateral segment, apical anterior segment, apical inferior segme nt, and apex. Hypokinesis of basal and mid anterior wall, mid and apical anterior septum, mi d and apical inferior septum, basal and mid inferolateral wall, mid anterolateral segment, a nd mid inferior segment). No history of HF symptoms and currently appears euvolemic. Anticip ate EF will improve after revascularization - no indication for diuretic - lisinopril 40mg daily - carvedilol 6.25mg bid - Reevaluate EF with TTE in 3 months after GDMT; if <40 would consider spironolactone. If < 35%, consider ICD for primary prevention - will need to establish care with Cardiology #Diabetes Mellitus, Type 2 A1C 11/23/17 indicates good control at 6.1. Continued home dose of 34u NPH in the morning wi th good control here. - cont home NPH 34 daily #HTN: history of difficult to control HTN, previously followed by Cardiology at [facility] ( Priyanka Andre). BPs remain above goal; added carvedilol. - cont carvedilol 6.25mg bid; consider increasing if HR allow in future - cont home lisinopril 40mg daily - stopped amlodipine for now; could add back to regimen if BPs remain >130 and he cannot to lerate increasing doses of carvedilol #HLD: elevated despite treatment with simvastatin. TC 184, HDL 31, LDL 110. -switched pravastatin 80mg daily to atorvastatin 80mg daily #Ascending aortic aneurysm, 4.8cm Recently diagnosed on 11/[address] scan showing ascending thoracic aortic aneurysm, 4.8cm- no dissection. He needs better BP control and monitoring in outpatient setting - BP control as above - outpatient monitoring with yearly echocardiograms. Consider surgical/percutaneous interve ntion if aorta dilates >5cm Specific issues to be addressed at first post-hospitalization visit: - BP control - cardiac rehab - referral to Cardiology Medication List START taking these medications atorvastatin 80 mg Tab Commonly known as: LIPITOR Take 1 tablet by mouth once daily. Indications: atherosclerotic cardiovascular disease, hyp erlipidemia, myocardial infarction prevention, treatment to slow progression of coronary art tru disease Start taking on: 11/26/2017 carvedilol 6.25 mg Tab Commonly known as: COREG Take 1 tablet by mouth two times daily with meals. Administer with food. Indications: hyper tension, Left Ventricular Dysfunction following NV clopidogrel 75 mg Tab Commonly known as: PLAVIX Take 1 tablet by mouth once daily. Indications: Acute Coronary Syndrome, Myocardial Reinfar ction Prevention, Thrombosis Prevention after PCI Start taking on: 11/26/2017 nitroglycerin 0.4 mg Subl Commonly known as: NITROSTAT Place 1 tablet under tongue every five minutes as needed for chest pain. Place under tongue and allow to dissolve. Administer every 5 minutes, max of 3 doses in 15 minutes. Indicatio ns: Angina CONTINUE taking these medications aspirin EC 81 mg Tbec Take 81 mg by mouth once daily. Indications: myocardial infarction prevention insulin NPH 100 unit/mL (3 mL) Inpn Commonly known as: HUMULIN N FLEXPEN Inject 34 Units under the skin (SUBC) once daily in the morning. Indications: type 2 diabet es mellitus lisinopril 40 mg Tab Commonly known as: PRINIVIL Take 40 mg by mouth once daily. Indications: hypertension STOP taking these medications amLODIPine 10 mg Tab Commonly known as: NORVASC pravastatin 80 mg Tab Commonly known as: PRAVACHOL Vital Signs Per policy PPD for Facility Administer PPD upon arrival Capillary Blood Glucose With meals and at bedtime Weigh Patient Daily Weigh yourself daily and keep a record of your weight. Diet Low Sodium, Low Cholesterol Sodium 2 gm, Low Cholesterol- Choose foods that are low in cholesterol, saturated fat, tota l fat and have low to moderate sodium levels. Activity Pt should be referred to cardiac rehab to facilitate return to physical activity with close monitoring Discharge Labs: Complete Blood Count Lab Results Component Value Date WBC 7.23 11/25/2017 HB 11.1 11/25/2017 HCT 34.6 11/25/2017 PLT 191 11/25/2017 MCV 77.8 11/25/2017 RDW 42.8 11/25/2017 Basic Metabolic Panel Lab Results Component Value Date NA 140 11/25/2017 K 3.5 11/25/2017 CL 106 11/25/2017 BICARB 28 11/25/2017 BUN 24 11/25/2017 CR 1.25 11/25/2017 GLU 116 11/25/2017 CA 9.1 11/25/2017 Lipid Panel Lab Results Component Value Date CHOL 184 11/23/2017 LDL 110 11/23/2017 HDL 31 11/23/2017 TRI 215 11/23/2017 Outstanding labs/studies: none Pertinent Images/studies: Coronary angiogram with PCI 11/24/17: Findings-- Severe mid LAD lesion Severe distal RCA lesion Intervention-- PCI with one 3.0 x 15 mm Resolute [place] KAIA to the mid LAD PCI with one 2.75 x 34 mm Resolute Ras KAIA to the distal RCA TTE 11/24/17: 1. The left ventricular cavity size is normal. 2. The LV function is severely abnormal. EF 36%. 3. Left ventricular systolic thickening is segmentally abnormal. The apical lateral segment , apical anterior segment, apical inferior segment, and apex are akinetic. The basal and mid anterior wall, mid and apical anterior septum, mid and apical inferior septum, basal and mid inferolateral wall, mid anterolateral segment, an d mid inferior segment are hypokinetic. All remaining scored segments are normal. Left ventricular systoli c thickening is segmentally abnormal 4. Right ventricular size, thickness and function are normal. 5. 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 The ascending aorta is dilated at 4.8 cm. The aort ic arch is dilated at 4.2 cm. 6. There are no prior exams available for comparison. Cariology Metrics: Most recent LV Ejection Fraction: 35% Core measures: Other Discharge Orders and Instructions 1. Pt needs to be referred to a Art Education Professor for ongoing cardiac care 2. Pt needs a repeat echocardiogram in 3 months to evaluate LV function 3. Pt needs yearly echocardiograms to monitor ascending aortic aneurysm 4. Pt needs to take plavix and ASA daily. Plavix may be stopped after 1 year (11/24/18) Aldosterone Antagonists prescribed? No, Reason: will consider adding in outpatient setting Cardiac Rehabilitation: This patient is referred for cardiac rehabilitation. Patient is currently limited in the a bility to perform age-related activities of daily living and/or impaired functional abilitie s and would benefit from outpatient cardiac rehabilitation. Patient has a documented diagno sis of: PCI/Stent. Date of Event/Procedure/Diagnosis: 11/24/17 NYHA Classification: I Tobacco Use: Lifelong non-smoker Last vitals: BP: 142/81 (11/25/17 0840) Pulse: 54 (11/25/17 0840) Resp: 16 ( 0754) Weight: 106.3 kg (234 lb 5.6 oz) (11/25/17 0741) Discharging Provider: SHANTHI BERNARDO PA-C, Cardiovascular Medicine Attending Physician: Chelsey Ritter MD, Cardiovascular Medicine Shanthi Bernardo PA-C Instructor of Cardiovascular Medicine [facility] Cardiovascular [place] [facility] [employer] I spent 36 minutes in coordination of care and ymqx-no-cmhy with the patient and/or their s urrogate in which the following was discussed: CAD, PCI, Ischemic cardiomyopathy, HTN, HLD, aortic aneurysm Associated attestation - Chelsey Ritter MD - 11/25/2017 6:49 PM PDTATTENDING NOTE: I saw and examined the patient and reviewed the imaging and chart. I agree with the finding s, assessment, and plan of care as documented in the advanced practitioner's note. Chelsey Ritter MD documented in this encounter Discharge Instructions Instructions Leif Dockery RN - 11/25/2017Formatting of this note might be different f rom the original. Percutaneous Coronary Intervention: What to Expect at Home Your Recovery Percutaneous coronary intervention (PCI) is the name for procedures that are used to open a narrowed or blocked coronary artery. The two most common PCI procedures are coronary angiop lasty and coronary stent placement. Your groin or arm may have a bruise and feel sore for a day or two after a percutaneous cor onary intervention (PCI). You can do light activities around the house, but nothing strenuou s for several days. This care sheet gives you a general idea about how long it will take for you to recover. Bu t each person recovers at a different pace. Follow the steps below to get better as quickly as possible. How can you care for yourself at home? Activity ? If the doctor gave you a sedative: For 24 hours, don't do anything that requires attention to detail. It takes time for the medicine's effects to completely wear off. For your safety, do not drive or operate any machinery that could be dangerous. Wait unt il the medicine wears off and you can think clearly and react easily. ? Do not do strenuous exercise and do not lift, pull, or push anything heavy until your doctor says it is okay. This may be for a day or two. You can walk around the house and do l ight activity, such as cooking. ? If the catheter was placed in your groin, try not to walk up stairs for the first coup le of days. ? If the catheter was placed in your arm near your wrist, do not bend your wrist deeply for the first couple of days. Be careful using your hand to get into and out of a chair or b ed. ? Carry your stent identification card with you at all times. ? If your doctor recommends it, get more exercise. Walking is a good choice. Bit by bit, increase the amount you walk every day. Try for at least 30 minutes on most days of the wee k. Diet ? Drink plenty of fluids to help your body flush out the dye. If you have kidney, heart, or liver disease and have to limit fluids, talk with your doctor before you increase the am ount of fluids you drink. ? Keep eating a heart-healthy diet that has lots of fruits, vegetables, and whole grains . If you have not been eating this way, talk to your doctor. You also may want to talk to a dietitian. This expert can help you to learn about healthy foods and plan meals. Medicines ? Your doctor will tell you if and when you can restart your medicines. He or she will a lso give you instructions about taking any new medicines. ? If you take blood thinners, such as warfarin (Coumadin), clopidogrel (Plavix), or aspi rin, be sure to talk to your doctor. He or she will tell you if and when to start taking tho se medicines again. Make sure that you understand exactly what your doctor wants you to do. ? Your doctor will prescribe blood-thinning medicines. You will likely take aspirin plus another antiplatelet, such as clopidogrel (Plavix). It is very important that you take thes e medicines exactly as directed. These medicines help keep the coronary artery open and redu ce your risk of a heart attack. ? Call your doctor if you think you are having a problem with your medicine. ?Care of the catheter site ? For 1 or 2 days, keep a bandage over the spot where the catheter was inserted. The ban dage probably will fall off in this time. ? Put ice or a cold pack on the area for 10 to 20 minutes at a time to help with sorenes s or swelling. Put a thin cloth between the ice and your skin. ? You may shower 24 to 48 hours after the procedure, if your doctor okays it. Pat the in cision dry. ? Do not soak the catheter site until it is healed. Don't take a bath for 1 week, or unt il your doctor tells you it isokay. Follow-up care is a prasad part of your treatment and safety. Be sure to make and go to all ap pointments, and call your doctor if you are having problems. It's also a good idea to know y our test results and keep a list of the medicines you take. When should you call for help? Call 911 anytime you think you may need emergency care. For example, call if: ? You passed out (lost consciousness). ? You have severe trouble breathing. ? You have sudden chest pain and shortness of breath, or you cough up blood. ? You have symptoms of a heart attack, such as: Chest pain or pressure. Sweating. Shortness of breath. Nausea or vomiting. Pain that spreads from the chest to the neck, jaw, or one or both shoulders or arms. Dizziness or lightheadedness. A fast or uneven pulse. After calling 911, chew 1 adult-strength aspirin. Wait for an ambulance. Do not try to zeynep richards yourself. ? You have been diagnosed with angina, and you have angina symptoms that do not go away with rest or are not getting better within 5 minutes after you take one dose of nitroglyceri n. ?Call your doctor now or seek immediate medical care if: ? You are bleeding from the area where the catheter was put in your artery. ? You have a fast-growing, painful lump at the catheter site. ? You have signs of infection, such as: Increased pain, swelling, warmth, or redness. Red streaks leading from the catheter site. Pus draining from the catheter site. A fever. ? Your leg or arm looks blue or feels cold, numb, or tingly. ?Watch closely for changes in your health, and be sure to contact your doctor if you have a ny problems. Where can you learn more? To learn more about "Percutaneous Coronary Intervention: What to Expect at Home", log into your [employer] account at [email or web address]. You can enter [id number] in the "[employer]" search box. Not on [employer]? Review the [employer] section of your After Visit Summary for directions on ho w to sign up. Current as of: April 30, 2016 Content Version: 11.5 0201-2533 [employer]. Care instructions adapted under license by [facility] [employer]. If you have questions about a medical condition or this instr uction, always ask your healthcare professional. [employer] disclaims any anisha anty or liability for your use of this information. documented in this encounter Medications at Time of Discharge [...] | | | | | | following NV | Ventricular | | | | | | | Dysfunction | | | | | | | following NV | | | | | + + [...] tablet under | 25 | 0 | 11/26/19 | | | mg sublingual | tongue [...] + + documented as of this encounter Progress Notes Logan PEÑA, MPH, Blanca Valerio - 11/24/2017 9:41 PM PDTFormatting of this note might be different f rom the original. POST-CATH Access Check Subjective: Patient feeling fine. Last Vitals: BP 122/71 | Pulse 55 | Temp 36.5 C (97.7 F) | RR 16 | Ht 1.778 m (5' 10") | Wt 109 kg (240 lb 4.8 oz) | SpO2 95% | BMI 34.48 kg/(m^2) 24 Hour Vital Min/Max: Systolic (24hrs), Av , Min:122 , Max:168 Diastolic (24hrs), Av, Min:71, Max:96 Pulse Min: 50 Max: 70 Temp Min: 36.4 C (97.5 F) Max: 37 C (98.6 F) Resp Min: 12 Max: 18 SpO2 Min: 92 % Max: 100 % Intake/Output Summary (Last 24 hours) at 11/24/171 Last data filed at 11/24/17 2100 Gross per 24 hour Intake 1323.56 ml Output 2050 ml Net -726.44 ml Gen: comfortable appearing. Neuro: negative Access Site: No hematoma or oozing. Pulse:right radial: 2+ Barbeau test: TYPE A A/P: No evidence of acute complications following procedure. Continue current post-cath car e. NelsFelice boyer MD - 11/24/2017 4:23 PM PDTCARDIOLOGY PRELIMINARY PROCEDURE NOTE Primary Care Provider: No Pcp Per PATIENT Referring Provider: Chelsey Ritter MD Highway Maintainer Staff: Lane Ramachandran MD Procedure(s): Coronary Angiography Percutaneous Coronary Intervention (PCI) Indications: Unstable angina, High risk stress test Access: 5/6-Mac[place] RRA Post Procedure Access: No evidence of significant hematoma or bleeding Estimated Blood Loss: 30 mL Medications: Fentanyl 150 mcg Route: IV Heparin [id number] units Route: IV Midazolam 4 mg Route: IV Nitroglycerin 200 mcg Route: IC Nitroglycerin 100 mcg Route: IA Verapamil 1 mg Route: IA Contrast: Omnipaque 150 mL Findings: Severe mid LAD lesion Severe distal RCA lesion Intervention: PCI with one 3.0 x 15 mm Resolute Ras KAIA to the mid LAD PCI with one 2.75 x 34 mm Resolute Ras KAIA to the distal RCA Complications: None Hemostasis: TR Band Recommendations: Return to floor with continued care per primary service TR band release per protocol, wrist precautions for 4 hours Continue clopidogrel 75 mg daily for at least 12 months Continue ASA 81 mg daily indefinitely Continue aggressive cardiac risk factor management Referral to cardiac rehabilitation homs, Shanthi Mcwilliams PA-C - 11/24/2017 3:34 PM PDT IP Cardiology Progress Note Date: 11/24/2017 Hospital Day: 1 Attending Art Education Professor: Chelsey Ritter MD Provider: SHANTHI BERNARDO PA-C Primary Care Provider: No Pcp Per PATIENT Outpatient Art Education Professor: needs to be established ID:Jerald Bender is an incarcerated 52 year old man with a history of DM, HTN, HLD, anemia w ho recently presented to [facility] ED on 11/20 for ~10-day history of exertional chest pain. Troponin was mildly elevated, EKG unremarkable, CT chest showed extensive coronary calcific ation, and a 4.8cm ascending aortic aneurysm was identified. He was discharged and scheduled for an exercise stress test 11/23 which was positive (chest pain, diaphoresis, ST elevation then diffuse precordial TWI) and he was referred back to the ED. He was accepted in transfer to [facility] and initiated on a heparin gtt in anticipation of coronary angiogram for unstable a ngina. Interval Events: - admitted overnight - continued on heparin infusion - no further CP - BPs above goal Subjective: Feels fine currently. No further chest pain but thinks he would get CP if he walked to the RN station from his room. Denies SOB, MORALES, orthopnea. No h/o smoking, no family history of e ravindra CAD (though states his brother recently from heart problems). Not looking forward to procedure. Current Inpatient Medications: acetaminophen (TYLENOL) tablet 650 mg, 650 mg, oral, Q4H PRN amLODIPine (NORVASC) tablet 10 mg, 10 mg, oral, DAILY aspirin chewable tablet 81 mg, 81 mg, oral, DAILY atorvastatin (LIPITOR) tablet 80 mg, 80 mg, oral, DAILY bisacodyl (DULCOLAX) suppository 10 mg, 10 mg, rectal, DAILY PRN carvedilol (COREG) tablet 6.25 mg, 6.25 mg, oral, BID W/MEALS dextrose 50 % in water IV 25 mL, 25 mL, intravenous, PRN fentaNYL (SUBLIMAZE) injection, , intravenous, INTRAPROCEDURE PRN glucagon (GLUCAGEN) injection 1 mg, 1 mg, intramuscular, PRN glucose chewable tablet 16 g, 16 g, oral, PRN heparin 1,000 unit/mL injection, , intravenous, INTRAPROCEDURE PRN heparin bolus from continuous infusion 2,000 Units, 2,000 Units, intravenous, NEEDED (MICHELLE KAPIL) heparin in D5W 25,000 Units/250 mL (100 Units/mL) IV infusion (RTU), 1-2,500 Units/hr, intr avenous, CONTINUOUS insulin lispro (HUMALOG) injection, , subcutaneous, MEALS and HS insulin NPH (HUMULIN N) injection 34 Units, 34 Units, subcutaneous, BEFORE BREAKFAST lidocaine (XYLOCAINE) 10 mg/mL (1 %) injection, , infiltration, INTRAPROCEDURE PRN lisinopril (PRINIVIL) tablet 10 mg, 10 mg, oral, DAILY melatonin tablet 3 mg, 3 mg, oral, HS PRN midazolam (PF) (VERSED) injection, , , INTRAPROCEDURE PRN nitroglycerin (NITROSTAT) tablet 0.4 mg, 0.4 mg, sublingual, Q5MIN PRN nitroGLYCERIN 100 mcg/mL NS Intracoronary Intracoronary, , intracoronary, PRN nitroGLYCERIN 2 mg/10 mL (200 mcg/mL) in D5W IV, , , INTRAPROCEDURE PRN polyethylene glycol (MIRALAX) packet 34 g, 34 g, oral, TID PRN senna-docusate (SENOKOT S) 8.6-50 mg 1 tablet, 1 tablet, oral, BID verapamil (ISOPTIN) injection, , , INTRAPROCEDURE PRN Physical Exam: Last Vitals: BP 135/85 | Pulse 58 | Temp 36.8 C (98.2 F) | RR 12 | Ht 1.778 m (5' 10") | Wt 109 kg (240 lb 4.8 oz) | SpO2 95% | BMI 34.48 kg/(m^2) 24 Hour Vital Min/Max: Systolic (24hrs), Av , Min:135 , Max:168 Diastolic (24hrs), Av, Min:74, Max:96 Pulse Min: 50 Max: 70 Temp Min: 36.6 C (97.9 F) Max: 37.2 C (99 F) Resp Min: 12 Max: 18 SpO2 Min: 92 % Max: 100 % Intake/Output Summary (Last 24 hours) at 11/24/17 1534 Last data filed at 11/24/17 1358 Gross per 24 hour Intake 607.03 ml Output 1275 ml Net -667.97 ml General Appearance: pleasant man, resting in bed no distress Respiratory: Unlabored breathing. CTAB without wheezes, crackles or rhonchi Cardiovascular: RRR with very soft systolic murmur LLSB. JVP not visualized due to thick be steven Gastrointestinal: soft, BS normal, nontender Extremities: no edema, wwp Diagnostic Data: Chemistries: Last 72 Hours (or 3 results) - Refreshable Recent Labs 11/23/17204611/24/17 0443 11/24/17 1021 11/24/17 1214 11/24/17 1359 NA 142 -- 142 -- -- -- -- K 3.1* -- 3.0* -- -- -- -- CL 104 -- 104 -- -- -- -- BICARB 32 -- 31 -- -- -- -- BUN 19 -- 19 -- -- -- -- CR 1.07 -- 1.05 -- -- -- -- GLU 119* < > 144* < > 93 97 95 CA 9.4 -- 9.2 -- -- -- -- MG 1.9 -- -- -- -- -- -- < > = values in this interval not displayed. CBC with diff last 72 hours (or 3 results) - Refreshable Recent Labs 11/23/17204611/24/17 0443 WBC 9.37 7.67 HB 12.5* 11.5* HCT 38.4* 34.8* PLT 222 200 NEUTROPERC 60.1 55.0 LYMPHPERC 29.2 31.9 MONOPERC 6.8 9.1* BASOPERC 0.9 0.8 EOSPERC 2.7 2.9 Recent Labs 11/23/172046 AST 13 ALT 16 TBILI 0.6 AP 109 ALB 4.4 TP 7.9 Lab Results Component Value Date CHOL 184 11/23/2017 LDL 110 11/23/2017 HDL 31 11/23/2017 TRI 215 11/23/2017 Lab Results Component Value Date INRPT 0.97 11/23/2017 Lab Results Component Value Date TROPONIN 0.23 11/24/2017 TROPONIN 0.22 11/24/2017 TROPONIN 0.11 11/23/2017 No results found for: NTPROBNP No results found for: FREET4, TSH, TPOAB, THYROGLOB, THYROGLOBAB, N6YJOBI No results found for: A1C EKG 11/23/17: SR rate 64. 1-1.5mm Q waves V1 AVL, V6. TW flattening I, aVL, V2 with TWI V3, V4 TTE 11/24/17: 1. The left ventricular cavity size is normal. 2. The LV function is severely abnormal. EF 36%. 3. Left ventricular systolic thickening is segmentally abnormal. The apical lateral segment , apical anterior segment, apical inferior segment, and apex are akinetic. The basal and mid anterior wall, mid and apical anterior septum, mid and apical inferior septum, basal and mid inferolateral wall, mid anterolateral segment, an d mid inferior segment are hypokinetic. All remaining scored segments are normal. Left ventricular systoli c thickening is segmentally abnormal 4. Right ventricular size, thickness and function are normal. 5. 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 The ascending aorta is dilated at 4.8 cm. The aort ic arch is dilated at 4.2 cm. 6. There are no prior exams available for comparison. CXR: clear lungs CTC w/wo contrast 11/20/17- [facility] Impression: 1. Ascending thoracic aortic aneurysm, 4.8cm 2. No dissection 3. extensive calcified coronary artery placque in left main, MAD, and moderate calcified pl aque in RCA, and minimal in circumflex Assessment & Plan: #Unstable angina #Coronary artery disease Pt experienced sudden CP on 11/10 lasting 30 min, followed by daily exertional angina that re solved with rest. No known h/o CAD. Underwent exercise stress test on 11/23 which caused sque ezing chest pain, diaphoresis and SOB with associated ST elevations of V2, V3; EKG evolved t o diffuse deep TWI of precordial leads. Transferred for further care of suspected coronary a rtery disease and unstable angina (possible plaque rupture on 11/10?). Troponin detectible her e (0.23) and not meeting NSTEMI criteria, but suspect this is down-trending from late-presen ting NV that likely occurred on 11/10. EKG without active ischemia. TTE showing reduced EF of 35% with segmental abnormalities (see above). Coronary angiogram today revealed mid LAD and distal RCA lesions, which will be treated with PCI. - cont ASA 81mg indefinitely - load with plavix 600mg today, then 75mg daily thereafter - cont atorvastatin 80mg daily - switched to carvedilol 6.25mg bid today for better BP control - give additional 10mg lisinopril tonight for a total of 20mg (home dose is 40 daily) - stop amlodipine - cont SL NTG - consider IMDUR if needed if recurrent angina in future - will need to establish with a Art Education Professor #Ischemic cardiomyopathy: NYHA class I, stage B. Etiology CAD as above. TTE shows reduced EF 35% with segmental abnor malities (akinesis of apical lateral segment, apical anterior segment, apical inferior segme nt, and apex. Hypokinesis of basal and mid anterior wall, mid and apical anterior septum, mi d and apical inferior septum, basal and mid inferolateral wall, mid anterolateral segment, a nd mid inferior segment). No history of HF symptoms and currently appears euvolemic. Anticip ate EF will improve after revascularization - PCI as above - no indication for diuretic - lisinopril 20mg daily, can increase to 40mg daily (home dose) pending BP response with BB - carvedilol 6.25mg bid, can increased to 25mg bid if BP allows - Reevaluate EF with TTE in 3 months after GDMT; if <40 would consider spironolactone. If < 35%, consider ICD for primary prevention - will need to establish care with Cardiology #Diabetes Mellitus, Type 2 A1C 11/23/17 indicates good control at 6.1. H. Was given NPH 34u this morning while fasting and CBGs have remained in 90s. Unclear what home regimen is. - give NPH 15u this evening - reduce NPH for morning to 30 - clarify med rec - ISS/CBGs #HTN: history of difficult to control HTN, previously followed by Cardiology at [facility] ( Priyanka Javiermer). BPs remain above goal; will switch metoprolol to carvedilol - switch metoprolol to carvedilol 6.25mg bid; consider increasing tomorrow morning if BPs r emain elevated - continue home meds of amlodipine 10mg daily and lisinopril 10mg daily - will add metoprolol 12.5mg BID for better BP control #HLD: elevated despite treatment with simvastatin. TC 184, HDL 31, LDL 110. -switch pravastatin 80mg daily to atorvastatin 80mg daily #Ascending aortic aneurysm, 4.8cm Recently diagnosed on 11/[address] scan showing ascending thoracic aortic aneurysm, 4.8cm- no dissection. He needs better BP control and monitoring in outpatient setting - BP control as above - outpatient monitoring. FEN: NPO now, then diabetic and heart health Prophy: heparin infusion Glucose: as above Disposition: likely ready to discharge by 11[facility]25 [facility] Follow up: will need to establish with Cardiology through the correctional system CODE: full This patient was interviewed and examined by attending roof technician, Dr. Chelsey Ritter MD , who is in agreement with above described findings, assessment and plan. SHANTHI BERNARDO PA-C Cardiovascular Medicine [facility] Pager [phone] I spent 51 minutes in coordination of care and [id number] with the patient and/or their s urrogate in which the following was discussed: CAD, angiogram and PCI, HTN, DMII Associated attestation - Chelsey Ritter MD - 11/25/2017 6:49 PM PDTATTENDING NOTE: I saw and examined the patient and reviewed the imaging and chart. I agree with the finding s, assessment, and plan of care as documented in the advanced practitioner's note. MD Abisai Resendiz John - 11/24/2017 9:16 AM PDTTransthoracic echocardiogram completed. Final report to follow. documented in this encounter Plan of Treatment + +---------+--------+ + + | Name | Type | Priori | Associated Diagnoses | Order Schedule | | | | ty | | | + +---------+--------+ + + | BATTERY CONTAINER INSPECTOR INT | Imaging | Routin | | One Time for 1 | | CORONARY ANGIOGRAM | | e | | Occurrences starting | | | | | | 11/23/2017 until | | | | | | 11/23/2017 | + +---------+--------+ + + | TROPONIN I, PLASMA | Lab | Routin | | As Needed for 1 | | | | e | | Occurrences starting | | | | | | 11/24/2017 | + +---------+--------+ + + documented as of this encounter Procedures + +--------+ + + + | Procedure Name | Priori | Date/Time | Associated Diagnosis | Comments | | | ty | | | | + +--------+ + + + | CAPILLARY BLOOD | Routin | 11/25/2017 | Coronary artery | Results for this | | GLUCOSE (NO CHG), | e | 12:56 PM | disease involving | procedure are in the | | POC | | PDT | [place] coronary | results section. | | | | | artery of [place] | | | | | | heart with unstable | | | | | | angina pectoris | | | | | | ([facility]) | | + +--------+ + + + | CAPILLARY BLOOD | Routin | 11/25/2017 | NSTEMI (non-ST | Results for this | | GLUCOSE (NO CHG), | e | 7:47 AM | elevated myocardial | procedure are in the | | POC | | PDT | infarction) ([facility]) | results section. | + +--------+ + + + | CAPILLARY BLOOD | Routin | 11/25/2017 | NSTEMI (non-ST | Results for this | | GLUCOSE (NO CHG), | e | 6:40 AM | elevated myocardial | procedure are in the | | POC | | PDT | infarction) ([facility]) | results section. | + +--------+ + + + | CARDIAC CATH | | 11/25/2017 | | Results for this | | | | 6:01 AM | | procedure are in the | | | | PDT | | results section. | + +--------+ + + + | CBC (HEMOGRAM) ONLY | Routin | 11/25/2017 | | Results for this | | | e | 4:20 AM | | procedure are in the | | | | PDT | | results section. | + +--------+ + + + | TROPONIN I, PLASMA | Routin | 11/25/2017 | | Results for this | | | e | 4:20 AM | | procedure are in the | | | | PDT | | results section. | + +--------+ + + + | BASIC METABOLIC SET | Routin | 11/25/2017 | | Results for this | | (NA, K, CL, TCO2, | e | 4:20 AM | | procedure are in the | | BUN, CR, GLU, CA) | | PDT | | results section. | + +--------+ + + + | CBC ONLY | Routin | 11/25/2017 | | Results for this | | | e | 4:20 AM | | procedure are in the | | | | PDT | | results section. | + +--------+ + + + | CARDIOLOGY | | 11/25/2017 | | Results for this | | | | 12:00 AM | | procedure are in the | | | | PDT | | results section. | + +--------+ + + + | CAPILLARY BLOOD | Routin | 11/24/2017 | NSTEMI (non-ST | Results for this | | GLUCOSE (NO CHG), | e | 10:03 PM | elevated myocardial | procedure are in the | | POC | | PDT | infarction) ([facility]) | results section. | + +--------+ + + + | CAPILLARY BLOOD | Routin | 11/24/2017 | NSTEMI (non-ST | Results for this | | GLUCOSE (NO CHG), | e | 6:49 PM | elevated myocardial | procedure are in the | | POC | | PDT | infarction) ([facility]) | results section. | + +--------+ + + + | CAPILLARY BLOOD | Routin | 11/24/2017 | NSTEMI (non-ST | Results for this | | GLUCOSE (NO CHG), | e | 5:09 PM | elevated myocardial | procedure are in the | | POC | | PDT | infarction) ([facility]) | results section. | + +--------+ + + + | 12 LEAD ECG | Routin | 11/24/2017 | | Results for this | | | e | 5:03 PM | | procedure are in the | | | | PDT | | results section. | + +--------+ + + + | ACT, POC-CCL ONLY | Routin | 11/24/2017 | NSTEMI (non-ST | Results for this | | | e | 2:04 PM | elevated myocardial | procedure are in the | | | | PDT | infarction) ([facility]) | results section. | + +--------+ + + + | CAPILLARY BLOOD | Routin | 11/24/2017 | NSTEMI (non-ST | Results for this | | GLUCOSE (NO CHG), | e | 1:59 PM | elevated myocardial | procedure are in the | | POC | | PDT | infarction) ([facility]) | results section. | + +--------+ + + + | TROPONIN I, PLASMA | Routin | 11/24/2017 | | Results for this | | | e | 12:23 PM | | procedure are in the | | | | PDT | | results section. | + +--------+ + + + | APTT (ACT. PART. | Routin | 11/24/2017 | | Results for this | | THROMBO TIME) | e | 12:23 PM | | procedure are in the | | | | PDT | | results section. | + +--------+ + + + | CAPILLARY BLOOD | Routin | 11/24/2017 | NSTEMI (non-ST | Results for this | | GLUCOSE (NO CHG), | e | 12:14 PM | elevated myocardial | procedure are in the | | POC | | PDT | infarction) ([facility]) | results section. | + +--------+ + + + | CAPILLARY BLOOD | Routin | 11/24/2017 | NSTEMI (non-ST | Results for this | | GLUCOSE (NO CHG), | e | 10:21 AM | elevated myocardial | procedure are in the | | POC | | PDT | infarction) ([facility]) | results section. | + +--------+ + + + | TRANSTHORACIC | Routin | 11/24/2017 | | Results for this | | ECHOCARDIOGRAM, | e | 8:46 AM | | procedure are in the | | ADULT | | PDT | | results section. | + +--------+ + + + | CAPILLARY BLOOD | Routin | 11/24/2017 | NSTEMI (non-ST | Results for this | | GLUCOSE (NO CHG), | e | 6:11 AM | elevated myocardial | procedure are in the | | POC | | PDT | infarction) ([facility]CC) | results section. | + +--------+ + + + | CBC AND AUTO DIFF | Routin | 11/24/2017 | | Results for this | | | e | 4:43 AM | | procedure are in the | | | | PDT | | results section. | + +--------+ + + + | CBC, WITH | Routin | 11/24/2017 | | Results for this | | DIFFERENTIAL | e | 4:43 AM | | procedure are in the | | | | PDT | | results section. | + +--------+ + + + | TROPONIN I, PLASMA | Routin | 11/24/2017 | | Results for this | | | e | 4:43 AM | | procedure are in the | | | | PDT | | results section. | + +--------+ + + + | BASIC METABOLIC SET | Routin | 11/24/2017 | | Results for this | | (NA, K, CL, TCO2, | e | 4:43 AM | | procedure are in the | | BUN, CR, GLU, CA) | | PDT | | results section. | + +--------+ + + + | APTT (ACT. PART. | Routin | 11/24/2017 | | Results for this | | THROMBO TIME) | e | 4:43 AM | | procedure are in the [...] | + +--------+ + + + | 12 LEAD ECG | Routin | 11/23/2017 | | Results for this | | | e | 10:00 PM | | procedure are in the | | | | PDT | | results section. | + +--------+ + + + | X-RAY PORTABLE CHEST | Routin | 11/23/2017 | | Results for this | | 1 VIEW | e | 10:00 PM | | procedure are in the | | | | PDT | | results section. | + +--------+ + + + | CAPILLARY BLOOD | Routin | 11/23/2017 | NSTEMI (non-ST | Results for this | | GLUCOSE (NO CHG), | e | 9:17 PM | elevated myocardial | procedure are in the | | POC | | PDT | infarction) ([facility]) | results section. | + +--------+ + + + | CBC AND AUTO DIFF | Routin | 11/23/2017 | | Results for this | | | e | 8:47 PM | | procedure are in the | | | | PDT | | results section. | + +--------+ + + + | INR | Routin | 11/23/2017 | | Results for this | | | e | 8:47 PM | | procedure are in the | | | | PDT | | results section. | + +--------+ + + + | CBC, WITH | Routin | 11/23/2017 | | Results for this | | DIFFERENTIAL | e | 8:47 PM | | procedure are in the | | | | PDT | | results section. | + +--------+ + + + | TROPONIN I, PLASMA | Routin | 11/23/2017 | | Results for this | | | e | 8:47 PM | | procedure are in the | | | | PDT | | results section. | + +--------+ + + + | COMPLETE METABOLIC | Routin | 11/23/2017 | | Results for this | | SET | e | 8:47 PM | | procedure are in the | | (NA,K,CL,CO2,BUN,CRE | | PDT | | results section. | | AT,GLUC,CA,AST,ALT,B | | | | | | JONATHAN TOTAL,ALK | | | | | | PHOS,ALB,PROT TOTAL) | | | | | + +--------+ + + + | APTT (ACT. PART. | Routin | 11/23/2017 | | Results for this | | THROMBO TIME) | e | 8:47 PM | | procedure are in the | | | | PDT | | results section. | + +--------+ + + + | LIPID SET (TRIG, T | Routin | 11/23/2017 | | Results for this | | CHOL, HDL, CALC LDL) | e | 8:47 PM | | procedure are in the | | | | PDT | | results section. | + +--------+ + + + | HEMOGLOBIN A1C, | Routin | 11/23/2017 | | Results for this | | BLOOD | e | 8:47 PM | | procedure are in the | | | | PDT | | results section. | + +--------+ + + + | MAGNESIUM, PLASMA | Routin | 11/23/2017 | | Results for this | | | e | 8:47 PM | | procedure are in the | | | | PDT | | results section. | + +--------+ + + + | CARDIOLOGY | | 11/23/2017 | | Results for this | | | | 12:00 AM | | procedure are in the | | | | PDT | | results section. | + +--------+ + + + documented in this encounter Results CAPILLARY BLOOD GLUCOSE (NO CHG), POC (11/25/2017 12:56 PM PDT) + +---------+ + + + | Component | Value | Ref Range | Performed | Pathologist | | | | | At | Signature | + +---------+ + + + | BLOOD | 170 (H) | 70 - 99 mg/dL | [facility] | | | GLUCOSE, | | | [place] | | | POC | | | [facility] | | | | | | [facility] | | | | | | TESTS | | + +---------+ + + + + + | Specimen | + + | | + + + + + + + | Performing | Address | City/State/Zipcode | Phone Number | | Organization | | | | + + + + + | [facility] | [address] | [place], [place] | | | [facility] | [address] | [phone] | | | TESTS | | | | + + + + + CAPILLARY BLOOD GLUCOSE (NO CHG), POC (11/25/2017 7:47 AM PDT) + +---------+ + + + | Component | Value | Ref Range | Performed | Pathologist | | | | | At | Signature | + +---------+ + + + | BLOOD | 116 (H) | 70 - 99 mg/dL | [facility] - | | | GLUCOSE, | | | [place] | | | POC | | | [facility] | | | | | | OF CARE | | | | | | TESTS | | + +---------+ + + + + + | Specimen | + + | | + + + + + + + | Performing | Address | City/State/Zipcode | Phone Number | | Organization | | | | + + + + + | [facility] | [address] | [place], [place] | | | [facility] | [address] | [phone] | | | TESTS | | | | + + + + + CAPILLARY BLOOD GLUCOSE (NO CHG), POC (11/25/2017 6:40 AM PDT) + +---------+ + + + | Component | Value | Ref Range | Performed | Pathologist | | | | | At | Signature | + +---------+ + + + | BLOOD | 108 (H) | 70 - 99 mg/dL | [facility] | | | GLUCOSE, | | | [place] | | | POC | | | [facility] | | | | | | OF CARE | | | | | | TESTS | | + +---------+ + + + + + | Specimen | + + | | + + + + + + + | Performing | Address | City/State/Zipcode | Phone Number | | Organization | | | | + + + + + | [facility] | [address] | [place], [place] | | | [facility] | [address] | [phone] | | | TESTS | | | | + + + + + CARDIAC CATH (11/25/2017 6:01 AM PDT) + + | Procedure Note | + + | Lane Ramachandran MD - 11/25/2017 6:01 AM PDT DATE OF PROCEDURE:November 24 | | 2018PROCEDURES PERFORMED:1. Coronary angiography.2. Percutaneous coronary intervention | | to the left anterior descending and right coronary arteries.3. Moderate conscious | | sedation.ATTENDING WINDOWS SECURITY ANALYST: Lane Ramachandran MD. INTERVENTIONAL CARDIOLOGY | | FELLOW:Felice Deleon MD.REFERRING WINDOWS SECURITY ANALYST:Chelsey Ritter MD.PREPROCEDURE | | DIAGNOSES:1. Unstable angina.2. New onset heart failure with reduced ejection | | fraction.3. Type 2 diabetes.4. Hypertension.5. Hyperlipidemia.POSTPROCEDURE DIAGNOSES:1. | | Severe obstructive two-vessel coronary artery disease involving left anterior | | descending and right coronary artery distributions.2. Ischemic cardiomyopathy.3. Type 2 | | diabetes.4. Hypertension.5. Hyperlipidemia.INDICATIONS:The patient is a 52-year-old | | gentleman with a history of type 2 diabetes, hypertension, and hyperlipidemia, referred | | for coronary angiography to evaluate symptoms consistent with unstable angina with a new | | decrease in left ventricular systolic function.CONSENT:The complete alternatives, | | risks, and benefits of the procedure were explained to patient. Signed informed consent | | was obtained and placed in the chart prior to beginning the procedure.MEDICATIONS:1. | | Fentanyl 150 mcg IV.2. Heparin 11,000 units IV.3. Midazolam 4 mg IV.4. Nitroglycerin 100 | | mcg IA.5. Nitroglycerin 200 mcg IC.6. Verapamil 1 mg IA.7. Clopidogrel 600 mg | | p.o.CONTRAST:Omnipaque 150 mL.FLUOROSCOPY TIME:18.0 minutes.DOSE AREA PRODUCT:20,236.0 | | cGy/sq cm.HEMODYNAMICS:1. Aortic pressure 117/80/95 mmHg.2. Heart rate 53 beats per | | minute.MODERATE CONSCIOUS SEDATION:I personally supervised the administration of | | moderate conscious sedation by the nursing staff for 78 minutes.ACCESS:5/6-Macanese | | Slender Glidesheath in the right radial artery.ESTIMATED BLOOD LOSS:30 | | mL.COMPLICATIONS:None.PROCEDURE IN DETAIL:The patient was brought to the cardiac | | catheterization laboratory in the fasting state. The skin over the right wrist was | | prepped and draped in the usual sterile fashion. 1% lidocaine infiltration was used to | | anesthetize the tissue over the right radial artery. Using the micropuncture technique, | | a 5/6-Macanese Slender Glidesheath was inserted in the right radial artery. A 5-Macanese | | Gabriel catheter was then advanced over a standard J-wire and was used to engage the | | ostium of the left main coronary artery. Cineangiograms were obtained in multiple | | projections for complete evaluation of the left coronary system. This catheter was then | | withdrawn and used to engage the ostium of the right coronary artery and cineangiograms | | were obtained in multiple projections for complete evaluation of the right coronary | | system. At the completion of coronary angiography, we proceeded to percutaneous | | coronary intervention. The Gabriel catheter was exchanged over a long J-wire for a | | 6-Macanese XB 3.5 guide catheter, which was used to re-engage the ostium of the left main | | coronary artery. Intracoronary nitroglycerin was administered, planning cineangiograms | | were obtained, and then a 0.014 Balance Middleweight wire was advanced through the guide | | catheter and across the lesion in the mid left anterior descending coronary artery and | | placed in the distal aspect of the vessel. A 2.0 x 12 mm compliant balloon was then | | advanced over the guidewire and was used to postdilate the lesion twice up to a maximum | | pressure of 12 atmospheres for 10 seconds. This balloon was removed and a 3.0 x 15 mm | | Resolute Ras drug-eluting stent was advanced over the guidewire and was placed across | | the lesion with appropriate placement confirmed under fluoroscopy. The stent was | | deployed at a maximum pressure of 14 atmospheres for 33 seconds and then the stent | | balloon was removed. Final cineangiograms demonstrated excellent stent apposition with | | no evidence of stent edge dissection, wire perforation, or thrombus, and no postdilation | | was performed. We then proceeded to percutaneous coronary intervention of the right | | coronary artery. The XB guide catheter was exchanged over a long J-wire for a 6-Macanese | | AL 0.75 guide catheter, which was used to re-engage the ostium of the right coronary | | artery. Intracoronary nitroglycerin was administered, planning cineangiograms were | | obtained, and then a 0.014 Balance Heavyweight wire was advanced through the guide | | catheter and across the lesion in the distal right coronary artery and was placed in the | | distal aspect of the posterolateral branch. A 2.0 x 12 mm compliant balloon was then | | advanced over the guidewire and was used to predilate the lesion twice up to a maximum | | pressure of 14 atmospheres for 12 seconds. This balloon was removed and a 2.75 x 34 mm | | Resolute [place] drug-eluting stent was advanced over the guidewire and placed across the | | lesion with appropriate placement confirmed under fluoroscopy. The stent was deployed | | at a maximum pressure of 12 atmospheres for 37 seconds and the stent balloon was | | removed. A 2.75 x 15 mm noncompliant balloon was then advanced over the guidewire and | | was used to postdilate the mid and proximal sections of the stent twice up to a maximum | | pressure of 18 atmospheres for 16 seconds. Final cineangiograms were then obtained in | | orthogonal views, which demonstrated excellent stent apposition with no evidence of | | stent edge dissection, wire perforation, or thrombus. At the completion of the case, | | all wires, catheters, and sheaths were removed. A TR band was placed using the patency | | hemostasis technique.CORONARY ANGIOGRAPHY:The left main coronary artery is a long vessel | | with diffuse mid to distal plaque up to 40% in stenosis. It bifurcates into the left | | anterior descending and left circumflex coronary arteries. The left anterior descending | | coronary artery is a large heavily diseased transapical vessel. Almost immediately | | after the bifurcation, it supplies one large septal pattern chain builder with ostial 70% disease | | and a large first diagonal branch with diffuse luminal irregularities. The mid vessel | | has a focal 95% stenosis just prior to the bifurcation of a small second diagonal | | branch. The ongoing mid to distal vessel has luminal irregularities less than 25% in | | stenosis. The left circumflex coronary artery is a large tortuous vessel that has | | proximal and mid luminal irregularities. It supplies a moderate sized first obtuse | | marginal branch. There is a focal 40% stenosis just prior to the origin of the OM. The | | ongoing AV groove vessel is small and supplies one additional small distal obtuse | | marginal branch. The right coronary artery is a large, dominant vessel with proximal | | 40% disease, a focal mid 40% lesion, and a long segment of ectatic distal disease up to | | 75% in stenosis. It bifurcates into a large posterior descending coronary artery and a | | large posterolateral branch with luminal irregularities. There is a focal 30% stenosis | | at the bifurcation.DISCUSSION: The images were reviewed in person with Dr Chelsey Ritter | | who recommended proceeding with multivessel CAD given the absence of proximal LAD | | involvement without bifurcation lesions in this patient with diabetes. The patient | | agreed to proceed. PERCUTANEOUS CORONARY INTERVENTION:Lesion #1:1. Lesion location: Mid | | left anterior descending coronary artery.2. Lesion type: B.3. Lesion length: 13 mm.4. | | Preintervention JESSICA flow: 3.5. Postintervention JESSICA flow: 3.6. Postintervention | | stenosis: 95%.7. Postintervention stenosis: 0%.8. Stent: 3.0 x 15 mm Resolute Ras | | drug-eluting stent. Lesion #2:1. Lesion location: Distal right coronary artery.2. | | Lesion type: C.3. Lesion length: 13 mm.4. Preintervention JESSICA flow: 3.5. | | Postintervention JESSICA flow: 3.6. Preintervention stenosis: 75%.7. Postintervention | | stenosis: 0%.8. Stent: 2.75 x 34 mm Resolute Ras drug-eluting stent.IMPRESSION:1. | | Severe obstructive two-vessel coronary artery disease.2. Successful percutaneous | | coronary intervention to the mid left anterior descending coronary artery with one 3.0 x | | 15 mm Resolute [place] drug-eluting stent.3. Successful percutaneous coronary intervention | | to the distal right coronary artery with one 2.75 x 34 mm Resolute [place] drug-eluting | | stent.RECOMMENDATIONS:1. Return to floor with continued care per primary service.2. TR | | band release per protocol, wrist precautions for 4 hours.3. Clopidogrel 75 mg daily for | | at least 12 months.4. Aspirin 81 mg daily indefinitely.5. Continue aggressive cardiac | | risk factor management.6. Optimal medical care for ischemic cardiomyopathy.7. Referral | | to Cardiac Rehabilitation on discharge.ATTENDING SURGEON'S ATTESTATION:Pursuant to | | Federal Medicare Requirements, I certify that Lane Ramachandran M.D. was present for | | the entire procedure and participated directly in the generation of this | | report.BCN/MODLDD: 11/24/2017 16:39:53DT: 11/25/2017 06:01:21Job #: [id number] | |DISCUSSION: The images were reviewed in person with Dr Chelsey Ritter who recommended proceedi ng with multivessel CAD given the absence of proximal LAD involvement without bifurcation le sions in this patient with diabetes. The patient agreed to proceed. | | | |PERCUTANEOUS CORONARY INTERVENTION: | |Lesion #1: | |1. Lesion location: Mid left anterior descending coronary artery. | |2. Lesion type: B. | |3. Lesion length: 13 mm. | |4. Preintervention JESSICA flow: 3. | |5. Postintervention JESSICA flow: 3. | |6. Postintervention stenosis: 95%. | |7. Postintervention stenosis: 0%. | |8. Stent: 3.0 x 15 mm Resolute [place] drug-eluting stent. | | | |Lesion #2: | |1. Lesion location: Distal right coronary artery. | |2. Lesion type: C. | |3. Lesion length: 13 mm. | |4. Preintervention JESSICA flow: 3. | |5. Postintervention JESSICA flow: 3. | |6. Preintervention stenosis: 75%. | |7. Postintervention stenosis: 0%. | |8. Stent: 2.75 x 34 mm Resolute [place] drug-eluting stent. | | | |IMPRESSION: | |1. Severe obstructive two-vessel coronary artery disease. | |2. Successful percutaneous coronary intervention to the mid left anterior descending yao ry artery with one 3.0 x 15 mm Resolute [place] drug-eluting stent. | |3. Successful percutaneous coronary intervention to the distal right coronary artery with o ne 2.75 x 34 mm Resolute [place] drug-eluting stent. | | | |RECOMMENDATIONS: | |1. Return to floor with continued care per primary service. | |2. TR band release per protocol, wrist precautions for 4 hours. | |3. Clopidogrel 75 mg daily for at least 12 months. | |4. Aspirin 81 mg daily indefinitely. | |5. Continue aggressive cardiac risk factor management. | |6. Optimal medical care for ischemic cardiomyopathy. | |7. Referral to Cardiac Rehabilitation on discharge. | | | |ATTENDING SURGEON'S ATTESTATION: | |Pursuant to Federal Medicare Requirements, I certify that Lane Ramachandran M.D. was pre sent for the entire procedure and participated directly in the generation of this report. | | | | | | | |MINDI/GM | | | | | | /[id number] | + + CBC (HEMOGRAM) ONLY (11/25/2017 4:20 AM PDT) + + + + + + | Component | Value | Ref Range | Performed | Pathologist | | | | | At | Signature | + + + + + + | WHITE CELL | 7.23 | 3.50 - 10.80 | [facility] | | | COUNT | | K/cu mm | LABORATORY | | | | | | SERVICES, | | | | | | CORE | | + + + + + + | RED CELL | 4.45 (L) | 4.50 - 6.00 | [facility] | | | COUNT | | M/cu mm | LABORATORY | | | | | | SERVICES, | | | | | | CORE | | + + + + + + | HEMOGLOBIN | 11.1 (L) | 13.5 - 17.5 | [facility] | | | | | g/dL | LABORATORY | | | | | | SERVICES, | | | | | | CORE | | + + + + + + | HEMATOCRIT | 34.6 (L) | 41.0 - 53.0 % | [facility] | | | | | | LABORATORY | | | | | | SERVICES, | | | | | | CORE | | + + + + + + | MCV | 77.8 (L) | 80.0 - 96.0 fL | [facility] | | | | | | LABORATORY | | | | | | SERVICES, | | | | | | CORE | | + + + + + + | MCHC | 32.1 | 33.0 - 35.5 | [facility] | | | | | g/dL | LABORATORY | | | | | | SERVICES, | | | | | | CORE | | + + + + + + | RDW SD | 42.8 | 35.1 - 46.3 fL | [facility] | | | | | | LABORATORY | | | | | | SERVICES, | | | | | | CORE | | + + + + + + | PLATELET | 191 | 150 - 400 K/cu | [facility] | | | COUNT | | mm | LABORATORY | | | | | | SERVICES, | | | | | | CORE | | + + + + + + | MPV | 10.4 | 9.7 - 12.3 fL | [facility] | | | | | | LABORATORY | | | | | | SERVICES, | | | | | | CORE | | + + + + + + | NRBC% | 0.0 | 0.0 - 0.3 % | [facility] | | | | | | LABORATORY | | | | | | SERVICES, | | | | | | CORE | | + + + + + + | NRBC# | 0.00 | 0.00 - 0.02 | [facility] | | | | | K/cu mm | LABORATORY | | | | | | SERVICES, | | | | | | CORE | | + + + + + + + + | Specimen | + + | Blood - Blood | | (substance) | + + + + + + + | Performing | Address | City/State/Zipcode | Phone Number | | Organization | | | | + + + + + | [facility] | [address] | [place] [address] | | | SERVICES, CORE | [address] | | | + + + + + TROPONIN I, PLASMA (11/25/2017 4:20 AM PDT) + +-------+ + + + | Component | Value | Ref Range | Performed | Pathologist | | | | | At | Signature | + +-------+ + + + | TROPONIN I | 0.27 | <0.80 ng/mL | [facility] | | | | | | LABORATORY | | | | | | SERVICES, | | | | | | CORE | | + +-------+ + + + + + | Specimen | + + | Blood - Blood | | (substance) | + + + + + + + | Performing | Address | City/State/Zipcode | Phone Number | | Organization | | | | + + + + + | [facility] | [address] | [place] [address] | | | SERVICES, CORE | [address] | | | + + + + + BASIC METABOLIC SET (NA, K, CL, TCO2, BUN, CR, GLU, CA) (11/25/2017 4:20 AM PDT) + +---------+ + + + | Component | Value | Ref Range | Performed | Pathologist | | | | | At | Signature | + +---------+ + + + | GLUCOSE, | 106 (H) | 70 - 99 mg/dL | [facility] | | | PLASMA | | | LABORATORY | | | (LAB) | | | SERVICES, | | | | | | CORE | | + +---------+ + + + | BUN, PLASMA | 24 (H) | 6 - 20 mg/dL | [facility] | | | (LAB) | | | LABORATORY | | | | | | SERVICES, | | | | | | CORE | | + +---------+ + + + | CREATININE | 1.25 | 0.70 - 1.30 | [facility] | | | PLASMA | | mg/dL | LABORATORY | | | (LAB) | | | SERVICES, | | | | | | CORE | | + +---------+ + + + | EGFR | >60 | >60 mL/min | [facility] | | | - | | | LABORATORY | | | ERITREAN | | | SERVICES, | | | | | | CORE | | + +---------+ + + + | EGFR NON | >60 | >60 mL/min | [facility] | | | -CLARISSA | | | LABORATORY | | | RICAN | | | SERVICES, | | | | | | CORE | | + +---------+ + + + | SODIUM, | 140 | 136 - 145 | [facility] | | | PLASMA | | mmol/L | LABORATORY | | | (LAB) | | | SERVICES, | | | | | | CORE | | + +---------+ + + + | POTASSIUM, | 3.5 | 3.4 - 5.0 | [facility] | | | PLASMA | | mmol/L | LABORATORY | | | (LAB) | | | SERVICES, | | | | | | CORE | | + +---------+ + + + | CHLORIDE, | 106 | 97 - 108 mmol/L | [facility] | | | PLASMA | | | LABORATORY | | | (LAB) | | | SERVICES, | | | | | | CORE | | + +---------+ + + + | TOTAL CO2, | 28 | 21 - 32 mmol/L | [facility] | | | PLASMA | | | LABORATORY | | | (LAB) | | | SERVICES, | | | | | | CORE | | + +---------+ + + + | CALCIUM, | 9.1 | 8.6 - 10.2 | [facility] | | | PLASMA | | mg/dL | LABORATORY | | | (LAB) | | | SERVICES, | | | | | | CORE | | + +---------+ + + + | ANION GAP | 6 | 4 - 11 mmol/L | [facility] | | | | | | LABORATORY | | | | | | SERVICES, | | | | | | CORE | | + +---------+ + + + | POTASSIUM | No Hemo | | [facility] | | | CMNT | | | LABORATORY | | | | | | SERVICES, | | | | | | CORE | | + +---------+ + + + + + | Specimen | + + | Blood - Blood | | (substance) | + + + + + | Narrative | Performed At | + + + | Adult glucose reference range change effective 7-12-17. GFR is | [facility] | | estimated using the MDRD equation recommended by the National Kidney | LABORATORY | | Disease Education Program. Estimated GFR Interpretive Information: | SERVICES, CORE | | <60 mL/min/1.73 sq m Chronic Kidney Disease | | | <15 mL/min/1.73 sq m Kidney Failure Estimated | | | GFR greater that 60 mL/min/1.73 sq m is of limited clinical value. | | | The MDRD equation is not valid in the following situations: - | | | Patients under 18 years of age - Severe malnutrition or obesity - | | | Vegetarian diet - Rapidly changing kidney function | | + + + + + + + + | Performing | Address | City/State/Zipcode | Phone Number | | Organization | | | | + + + + + | [facility] | [address] | [place] [address] | | | SERVICES, CORE | [address] | | | + + + + + CARDIOLOGY (11/25/2017 12:00 AM PDT) + + + | Narrative | Performed At | + + + | | | + + + CAPILLARY BLOOD GLUCOSE (NO CHG), POC (11/24/2017 10:03 PM PDT) + +---------+ + + + | Component | Value | Ref Range | Performed | Pathologist | | | | | At | Signature | + +---------+ + + + | BLOOD | 210 (H) | 70 - 99 mg/dL | [facility] | | | GLUCOSE, | | | [facility] | | | POC | | | [facility] | | | | | | OF CARE | | | | | | TESTS | | + +---------+ + + + + + | Specimen | + + | | + + + + + + + | Performing | Address | City/State/Zipcode | Phone Number | | Organization | | | | + + + + + | [facility] | [address] | [place], [place] | | | [facility] | [address] | [address] | | | TESTS | | | | + + + + + CAPILLARY BLOOD GLUCOSE (NO CHG), POC (11/24/2017 6:49 PM PDT) + +---------+ + + + | Component | Value | Ref Range | Performed | Pathologist | | | | | At | Signature | + +---------+ + + + | BLOOD | 123 (H) | 70 - 99 mg/dL | [facility] | | | GLUCOSE, | | | [place] | | | POC | | | [facility] | | | | | | OF CARE | | | | | | TESTS | | + +---------+ + + + + + | Specimen | + + | | + + + + + + + | Performing | Address | City/State/Zipcode | Phone Number | | Organization | | | | + + + + + | [facility] | [address] | [place], [place] | | | [place] OF CARE | [address] | [address] | | | TESTS | | | | + + + + + CAPILLARY BLOOD GLUCOSE (NO CHG), POC (11/24/2017 5:09 PM PDT) + +---------+ + + + | Component | Value | Ref Range | Performed | Pathologist | | | | | At | Signature | + +---------+ + + + | BLOOD | 144 (H) | 70 - 99 mg/dL | [facility] | | | GLUCOSE, | | | [place] | | | POC | | | [facility] | | | | | | OF CARE | | | | | | TESTS | | + +---------+ + + + + + | Specimen | + + | | + + + + + + + | Performing | Address | City/State/Zipcode | Phone Number | | Organization | | | | + + + + + | [facility] | [address] | [place], [place] | | | [facility] [place] | [address] | [address] | | | TESTS | | | | + + + + + 12 LEAD ECG (11/24/2017 5:03 PM PDT) + + + + + + | Component | Value | Ref Range | Performed | Pathologist | | | | | At | Signature | + + + + + + | VENTRICULAR | 59 | bpm | [facility] | | | RATE | | | OF | | | | | | CARDIOLOGY | | + + + + + + | ATRIAL RATE | 59 | ms | [facility] | | | | | | OF | | | | | | CARDIOLOGY | | + + + + + + | P-R | 251 | ms | [facility] | | | INTERVAL | | | OF | | | | | | CARDIOLOGY | | + + + + + + | P AXIS | 55 | deg | [facility] | | | | | | OF | | | | | | CARDIOLOGY | | + + + + + + | QRS | 124 | ms | [facility] | | | DURATION | | | OF | | | | | | CARDIOLOGY | | + + + + + + | QT | 484 | ms | [facility] | | | | | | OF | | | | | | CARDIOLOGY | | + + + + + + | QTC-BAZETT | 480 | ms | [facility] | | | | | | OF | | | | | | CARDIOLOGY | | + + + + + + | R AXIS | -89 | deg | [facility] | | | | | | OF | | | | | | CARDIOLOGY | | + + + + + + | T AXIS | 165 | deg | [facility] | | | | | | OF | | | | | | CARDIOLOGY | | + + + + + + | ECG | Sinus bradycardia | | [facility] | | | IMPRESSION | | | OF | | | | | | CARDIOLOGY | | + + + + + + | ECG | Prolonged UT interval | | [facility] | | | IMPRESSION | | | OF | | | | | | CARDIOLOGY | | + + + + + + | ECG | Nonspecific IVCD with | | [facility] | | | IMPRESSION | LAD | | OF | | | | | | CARDIOLOGY | | + + + + + + | ECG | LVH w/ repol | | [facility] | | | IMPRESSION | abnormalities, possible | | OF | | | | ischemia- ABNORMAL ECG - | | CARDIOLOGY | | + + + + + + | ECG | Electronically signed | | [facility] | | | IMPRESSION | by: JONATHON ALMANZA | | OF | | | | 11-24-2017 20:13:43 | | CARDIOLOGY | | + + + + + + + + | Specimen | + + | | + + + + + | Narrative | Performed At | + + + | | | + + + + + + + + | Performing | Address | City/State/Zipcode | Phone Number | | Organization | | | | + + + + + | [facility] | [address] | [place], [place] | | | CARDIOLOGY | [address] | [address] | | + + + + + ACT, POC-CCL ONLY (11/24/2017 2:04 PM PDT) + +-------+ + + + | Component | Value | Ref Range | Performed | Pathologist | | | | | At | Signature | + +-------+ + + + | ACT, POC | 134 | 90 - 150 | [facility] [...] + + + + | [facility] | [address] | [place], [place] | | | [facility] [place] | [address] | [address] | | | TESTS | | | | + + + + + CAPILLARY BLOOD GLUCOSE (NO CHG), POC (11/24/2017 1:59 PM PDT) + +-------+ + + + | Component | Value | Ref Range | Performed | Pathologist | | | | | At | Signature | + +-------+ + + + | BLOOD | 95 | 70 - 99 mg/dL | [facility] - | | | GLUCOSE, | | | [facility] | | | POC | | | [facility] | | [...] + | [facility] | [address] | [place], [place] | | | [facility] [place] | [facility] | [address] | | | TESTS | | | | + + + + + APTT (ACT. PART. THROMBO TIME) (11/24/2017 12:23 PM PDT) + + + + + + | Component | Value | Ref Range | Performed | Pathologist | | | | | At | Signature | + + + + + + | APTT | 38.7 (H) | 26.0 - 36.0 | [facility] | | | | | seconds | LABORATORY | | | | | | SERVICES, | | | | | | CORE | | + + + + + + + + | Specimen | + + | Blood - Blood | | (substance) | + + + + + | Narrative | Performed At | + + + | APTT Therapeutic Range: (75 - | [facility] | | 120) sec Heparin levels of 0.35 - 0.7 U/mL | LABORATORY | | | [place] | + + + + + + + + | Performing | Address | City/State/Zipcode | Phone Number | | Organization | | | | + + + + + | [facility] | [address] | [place] [address] | | | [place] | [address] | | | + + + + + TROPONIN I, PLASMA (11/24/2017 12:23 PM PDT) + +-------+ + + + | Component | Value | Ref Range | Performed | Pathologist | | | | | At | Signature | + +-------+ + + + | TROPONIN I | 0.23 | <0.80 ng/mL | [facility] | | | | | | LABORATORY | | | | | | SERVICES, | | | | | | CORE | | + +-------+ + + + + + | Specimen | + + | Blood - Blood | | (substance) | + + + + + | Narrative | Performed At | + + + | Retime start time for 8 hours after last lab | [facility] | | | LABORATORY | | | SERVICES, CORE | + + + + + + + + | Performing | Address | City/State/Zipcode | Phone Number | | Organization | | | | + + + + + | [facility] | [address] | [place] [address] | | | SERVICES, CORE | [address] | | | + + + + + CAPILLARY BLOOD GLUCOSE (NO CHG), POC (11/24/2017 12:14 PM PDT) + +-------+ + + + | Component | Value | Ref Range | Performed | Pathologist | | | | | At | Signature | + +-------+ + + + | BLOOD | 97 | 70 - 99 mg/dL | [facility] - | | | GLUCOSE, | | | [facility] | | | POC | | | [facility] | | [...] + + + + + | [facility] | [address] | [place], [place] | | | [facility] [place] | [facility] | [address] | | | TESTS | | | | + + + + + CAPILLARY BLOOD GLUCOSE (NO CHG), POC (11/24/2017 10:21 AM PDT) + +-------+ + + + | Component | Value | Ref Range | Performed | Pathologist | | | | | At | Signature | + +-------+ + + + | BLOOD | 93 | 70 - 99 mg/dL | [facility] | | | GLUCOSE, | | | [facility] | | | POC | | | [place], POINT | | | | | | [...] + | [facility] | [address] | [place], [place] | | | [place] | [address] | [address] | | | TESTS | | | | + + + + + TRANSTHORACIC ECHOCARDIOGRAM, ADULT (11/24/2017 8:46 AM PDT) + +-------+ + + + | Component | Value | Ref Range | Performed | Pathologist | | | | | At | Signature | + +-------+ + + + | BIPLANE, EF | 36 | | [facility] | | | | | | OF | | | | | | CARDIOLOGY | | + +-------+ + + + | LA | 3.9 | | [facility] | | | DIMENSION | | | OF | | | | | | CARDIOLOGY | | + +-------+ + + + | LVIDD | 5.5 | | [facility] | | | | | | OF | | | | | | CARDIOLOGY | | + +-------+ + + + | MV A VMAX | 0.7 | | [facility] | | | | | | OF | | | | | | CARDIOLOGY | | + +-------+ + + + | MV E? | 0.1 | | [facility] | | | | | | OF | | | | | | CARDIOLOGY | | + +-------+ + + + | MV E VMAX | 0.5 | | [facility] | | | | | | OF | | | | | | CARDIOLOGY | | + +-------+ + + + | RVSP | 26 | | [facility] | | | | | | OF | | | | | | CARDIOLOGY | | + +-------+ + + + | RV TAPSE | 2.5 | | [facility] | | | | | | OF | | | | | | CARDIOLOGY | | + +-------+ + + + | RV TDI S? | 13.0 | | [facility] | | | | | | OF | | | | | | CARDIOLOGY | | + +-------+ + + + + + | Specimen | + + | | + + + +--- + | Narrative | Pe rformed At | + +--- + | [facility] | [facility] | | [facility] [address] | | [place], [place] [address] Ph: | | | Pt Name: JERALD BENDER | | | Study Date/Time 11/24/2017 / 8:46:20 AMMRN: [id number] | | | Most recent prior: -Acc #: [id number] No. | | | previous echos: 0DOB: 1965 52 years Heart Rate: | | | 55 bpmHeight: 70.0 in Blood Pressure: | | | 90/57 mm/HgWeight: 242.0 lb Gender: | | | MBSA: 2.26 m2 Order ID: | | | [id number] Pile Driving Nozzleman: Dustin Rahman MA, RDCSSonographer 2: Wes | | | Erica Referring Provider: Dayana Vázquez Location: | | | 11KModalities Performed: 2D, Color flow, Spectral Doppler and Lumason | | | contrast.Study Quality: Good.Exam Indication: Chest painHistory: chest | | | pain, positive stress test, Aortic aneurysm, HTN, history of anemia | | | Patient history has been obtained from the EHR Transthoracic | | | Echocardiographic Report | | | + | | | ---------+Final Impressions: | | | | | | | | | | | | | | | 1. The left ventricular cavity size is normal. | | | 2. The LV function is severely abnormal. | | | 3. Left | | | ventricular systolic thickening is segmentally abnormal (see | | | comments below). | | | 4. Right ventricular size, | | | thickness and function are normal. 5. The | | | aortic root is dilated at 4.1 cm. The ascending aorta is dilated at | | | 4.8 cm. The aortic arch is dilated at 4.2 cm. | | | 6. There are no prior exams available for | | | comparison. | | | | | | | | | + | | | + Description of Findings: Cardiac Rhythm: Normal sinus | | | rhythm.Left Ventricle: The left ventricular cavity size is normal. | | | There is no left ventricular hypertrophy. The ejection fraction is | | | 36.2 % as measured by Guzman's biplane method. The LV function is | | | severely abnormal. Due to poor endocardial definition, ultrasound | | | contrast was used (Lumason).Left Ventricular Wall Motion: The apical | | | lateral segment, apical anterior segment, apical inferior segment, and | | | apex are akinetic. The basal and mid anterior wall, mid and apical | | | anterior septum, mid and apical inferior septum, basal and mid | | | inferolateral wall, mid anterolateral segment, and mid inferior | | | segment are hypokinetic. All remaining scored segments are normal. | | | Left ventricular systolic thickening is segmentally abnormal.Atria: | | | Left atrial size is normal. Normal right atrium.Right Ventricle: Right | | | ventricular size, thickness and function are normal. TAPSE measures | | | 2.5cm. The RV TDI s' velocity is 13cm/sec.Aortic Valve: The aortic | | | valve is trileaflet and normal in structure and function. No | | | indication of aortic valve regurgitation.Mitral Valve: The mitral | | | valve is structurally normal. No evidence of mitral valve stenosis. | | | Trace mitral valve regurgitation.Tricuspid Valve: The tricuspid valve | | | is not well visualized. Trace tricuspid regurgitation. The tricuspid | | | regurgitant velocity is 2.38 m/s, and with an assumed right atrial | | | pressure of 3 mmHg, the estimated right ventricular systolic pressure | | | is normal at 25.7 mmHg.Pulmonic Valve: The pulmonic valve is not well | | | visualized. No indication of pulmonary valve regurgitation. The peak | | | trans pulmonic gradient is 3.0 mmHg.Aorta: The aortic root is dilated | | | at 4.1 cm. The ascending aorta is dilated at 4.8 cm. The aortic arch | | | is dilated at 4.2 cm.Venous: Inferior vena cava is normal with normal | | | inspiratory collapse.Pericardium: No pericardial effusion is seen. | | | Additional Findings: There are no prior exams.2D Measurements | | | Doppler Measurements 2D NL Values | | | Aortic MitralLVID(d) 5.53 (3.5-5.7cm) Max Lisandro | | | 1.00 Peak E 0.50 cm | | | m/s m/sLVID(s) 4.39 | | | Mean grad 2.0 Peak A 0.70 cm | | | mmHg m/sIVS(d) | | | 1.03 (0.6-1.1cm) LVOT Lisandro 0.70 E/A Ratio 0.72 | | | cm m/sLVPW(d) 0.95 | | | (0.6-1.1cm) TDI (E/e') 6.3 | | | cm LVOT Diam 2.20 MV mn gdLA A/Ps 2D 3.90 | | | (2.7-3.9cm) cm cm | | | Tricuspid PulmonicLA vol A/L 69.9 (40-73ml) TR Vmax | | | 2.38 PV Vmax 0.9BP ml | | | m/s m/sLA vol A/L 30.9 (16-34) | | | RA Press 3 RVOT VTI 11.6index ml/m2 | | | mmHg cmLA vol MOD 63.7 | | | (40-73ml) RVSP 26 PV mn gdBP ml | | | mmHgLA vol MOD 28.2 (16-34)index | | | ml/m2 Aorta: | | | Index: Ao Sinus 4.09 | | | (2.1-3.5cm) 18.1Biplane EF 36.2 % cm | | | mm/m2 | | | Asc Ao 4.80 21.2 | | | (prox) cm mm/q2Zptqewscqc | | | of chamber size and geometry is accomplished through the incorporation | | | of linear, volumetric, and indexed values Wall Scoring: Report | | | electronically signed by: [id number] Hanane Porter MD (11/24/2017, | | | 12:07:23 PM) Final | | |LA vol MOD 63.7 (40-73ml) RVSP 26 PV mn gd | | |BP ml mmHg | | |LA vol MOD 28.2 (16-34) | | |index ml/m2 Aorta: Index: | | | Ao Sinus 4.09 (2.1-3.5cm) 18.1 | | |Biplane EF 36.2 % cm mm/m2 | | | Asc Ao 4.80 21.2 | | | (prox) cm mm/m2 | | |Evaluation of chamber size and geometry is accomplished through the incorporation of | | |linear, volumetric, and indexed values | | | | | |Wall Scoring: | | | | | | | | |Report electronically signed by: [id number] Hanane Porter MD (11/24/2017, 12:07:23 PM) | | | | | | | | | | | | Final | | + +--- + + + | Procedure Note | + + | Interface, Cardiology Results - 11/24/2017 12:07 PM [facility] | | [facility] Echocardiography Laboratory [facility] | | [place], [place] [address] Pt Name: JERALD BENDER | | Study Date/Time 11/24/2017 / 8:46:20 AMN: [id number] Most recent | | prior: -Acc #: [id number] No. previous echos: 0DOB: 1965 52 years | | Heart Rate: 55 bpmHeight: 70.0 in Blood Pressure: 90/57 | | mm/HgWeight: 242.0 lb Gender: MBSA: 2.26 m2 Order | | ID: [id number] Pile Driving Nozzleman: Dustin Rahman MA, RDCSSonographer 2: Wes | | GoffReferring Provider: Dayana Vázquez Location: 11KModalities Performed: 2D, | | Color flow, Spectral Doppler and Lumason contrast.Study Quality: Good.Exam Indication: | | Chest painHistory: chest pain, positive stress test, Aortic aneurysm, HTN, history of | | anemia Patient history has been obtained from the EHR Transthoracic Echocardiographic | | Report+ +Fi | | nal Impressions: | | | | 1. The left ventricular cavity | | size is normal. 2. The LV function is severely abnormal. | | 3. Left ventricular systolic thickening is | | segmentally abnormal (see comments below). | | 4. Right ventricular size, thickness and function are normal. | | 5. 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 The ascending aorta is dilated | | at 4.8 cm. The aortic arch is dilated at 4.2 cm. 6. | | There are no prior exams available for comparison. | | | | + + | | Description of Findings: Cardiac Rhythm: Normal sinus rhythm.Left Ventricle: The left | | ventricular cavity size is normal. There is no left ventricular hypertrophy. The | | ejection fraction is 36.2 % as measured by Ugzman's biplane method. The LV function is | | severely abnormal. Due to poor endocardial definition, ultrasound contrast was used | | (Lumason).Left Ventricular Wall Motion: The apical lateral segment, apical anterior | | segment, apical inferior segment, and apex are akinetic. The basal and mid anterior | | wall, mid and apical anterior septum, mid and apical inferior septum, basal and mid | | inferolateral wall, mid anterolateral segment, and mid inferior segment are hypokinetic. | | All remaining scored segments are normal. Left ventricular systolic thickening is | | segmentally abnormal.Atria: Left atrial size is normal. Normal right atrium.Right | | Ventricle: Right ventricular size, thickness and function are normal. TAPSE measures | | 2.5cm. The RV TDI s' velocity is 13cm/sec.Aortic Valve: The aortic valve is trileaflet | | and normal in structure and function. No indication of aortic valve regurgitation.Mitral | | Valve: The mitral valve is structurally normal. No evidence of mitral valve stenosis. | | Trace mitral valve regurgitation.Tricuspid Valve: The tricuspid valve is not well | | visualized. Trace tricuspid regurgitation. The tricuspid regurgitant velocity is 2.38 | | m/s, and with an assumed right atrial pressure of 3 mmHg, the estimated right | | ventricular systolic pressure is normal at 25.7 mmHg.Pulmonic Valve: The pulmonic valve | | is not well visualized. No indication of pulmonary valve regurgitation. The peak trans | | pulmonic gradient is 3.0 mmHg.Aorta: The aortic root is dilated at 4.1 cm. The ascending | | aorta is dilated at 4.8 cm. The aortic arch is dilated at 4.2 cm.Venous: Inferior vena | | cava is normal with normal inspiratory collapse.Pericardium: No pericardial effusion is | | seen. Additional Findings: There are no prior exams.2D Measurements | | Doppler Measurements 2D NL Values Aortic MitralLVID(d) 5.53 | | (3.5-5.7cm) Max Lisandro 1.00 Peak E 0.50 cm m/s | | m/sLVID(s) 4.39 Mean grad 2.0 Peak A 0.70 | | cm mmHg m/sIVS(d) 1.03 (0.6-1.1cm) LVOT Lisandro | | 0.70 E/A Ratio 0.72 cm m/sLVPW(d) 0.95 | | (0.6-1.1cm) TDI (E/e') 6.3 cm LVOT Diam 2.20 | | MV mn gdLA A/Ps 2D 3.90 (2.7-3.9cm) cm cm | | Tricuspid PulmonicLA vol A/L 69.9 (40-73ml) TR Vmax 2.38 PV Vmax 0.9BP | | ml m/s m/sLA vol A/L 30.9 (16-34) RA | | Press 3 RVOT VTI 11.6index ml/m2 mmHg | | cmLA vol MOD 63.7 (40-73ml) RVSP 26 PV mn gdBP ml | | mmHgLA vol MOD 28.2 (16-34)index ml/m2 Aorta: | | Index: Ao Sinus 4.09 (2.1-3.5cm) 18.1Biplane EF 36.2 | | % cm mm/m2 Asc Ao | | 4.80 21.2 (prox) cm | | mm/r0Fvairdsxaj of chamber size and geometry is accomplished through the incorporation | | of linear, volumetric, and indexed values Wall Scoring: Report electronically signed by: | | [id number] Hanane Porter MD (11/24/2017, 12:07:23 PM) Final | |regurgitation. The tricuspid regurgitant velocity is 2.38 m/s, and with an assumed | |right atrial pressure of 3 mmHg, the estimated right ventricular systolic pressure is | | normal at 25.7 mmHg. | |Pulmonic Valve: The pulmonic valve is not well visualized. No indication of pulmonary | | valve regurgitation. The peak trans pulmonic gradient is 3.0 mmHg. | |Aorta: The aortic root is dilated at 4.1 cm. The ascending aorta is dilated at 4.8 | |cm. The aortic arch is dilated at 4.2 cm. | |Venous: Inferior vena cava is normal with normal inspiratory collapse. | |Pericardium: No pericardial effusion is seen. | | | |Additional Findings: There are no prior exams. | |2D Measurements Doppler Measurements | | | | 2D NL Values Aortic Mitral | |LVID(d) 5.53 (3.5-5.7cm) Max Lisandro 1.00 Peak E 0.50 | | cm m/s m/s | |LVID(s) 4.39 Mean grad 2.0 Peak A 0.70 | | cm mmHg m/s | |IVS(d) 1.03 (0.6-1.1cm) LVOT Lisandro 0.70 E/A Ratio 0.72 | | cm m/s | |LVPW(d) 0.95 (0.6-1.1cm) TDI (E/e') 6.3 | | cm LVOT Diam 2.20 MV mn gd | |LA A/Ps 2D 3.90 (2.7-3.9cm) cm | | cm Tricuspid Pulmonic | |LA vol A/L 69.9 (40-73ml) TR Vmax 2.38 PV Vmax 0.9 | |BP ml m/s m/s | |LA vol A/L 30.9 (16-34) RA Press 3 RVOT VTI 11.6 | |index ml/m2 mmHg cm | |LA vol MOD 63.7 (40-73ml) RVSP 26 PV mn gd | |BP ml mmHg | |LA vol MOD 28.2 (16-34) | |index ml/m2 Aorta: Index: | | Ao Sinus 4.09 (2.1-3.5cm) 18.1 | |Biplane EF 36.2 % cm mm/m2 | | Asc Ao 4.80 21.2 | | (prox) cm mm/m2 | |Evaluation of chamber size and geometry is accomplished through the incorporation of | |linear, volumetric, and indexed values | | | |Wall Scoring: | | | | | |Report electronically signed by: [id number] Hanane Porter MD (11/24/2017, 12:07:23 PM) | | | | | | | | Final | + + + + + + + | Performing | Address | City/State/Zipcode | Phone Number | | Organization | | | | + + + + + | [facility] | [address] | [place], [place] | | | CARDIOLOGY | [address] | [address] | | + + + + + CAPILLARY BLOOD GLUCOSE (NO CHG), POC (11/24/2017 6:11 AM PDT) + +---------+ + + + | Component | Value | Ref Range | Performed | Pathologist | | | | | At | Signature | + +---------+ + + + | BLOOD | 105 (H) | 70 - 99 mg/dL | [facility] | | | GLUCOSE, | | | [facility] | | | POC | | | [facility] | | | | | | OF CARE | | | | | | TESTS | | + +---------+ + + + + + | Specimen | + + | | + + + + + + + | Performing | Address | City/State/Zipcode | Phone Number | | Organization | | | | + + + + + | [facility] | [address] | [place], [place] | | | [facility] | [address] | [address] | | | TESTS | | | | + + + + + CBC AND AUTO DIFF (11/24/2017 4:43 AM PDT) + + + + + + | Component | Value | Ref Range | Performed | Pathologist | | | | | At | Signature | + + + + + + | WHITE CELL | 7.67 | 3.50 - 10.80 | [facility] | | | COUNT | | K/cu mm | LABORATORY | | | | | | SERVICES, | | | | | | CORE | | + + + + + + | RED CELL | 4.54 | 4.50 - 6.00 | [facility] | | | COUNT | | M/cu mm | LABORATORY | | | | | | SERVICES, | | | | | | CORE | | + + + + + + | HEMOGLOBIN | 11.5 (L) | 13.5 - 17.5 | [facility] | | | | | g/dL | LABORATORY | | | | | | SERVICES, | | | | | | CORE | | + + + + + + | HEMATOCRIT | 34.8 (L) | 41.0 - 53.0 % | [facility] | | | | | | LABORATORY | | | | | | SERVICES, | | | | | | CORE | | + + + + + + | MCV | 76.7 (L) | 80.0 - 96.0 fL | [facility] | | | | | | LABORATORY | | | | | | SERVICES, | | | | | | CORE | | + + + + + + | MCHC | 33.0 | 33.0 - 35.5 | [facility] | | | | | g/dL | LABORATORY | | | | | | SERVICES, | | | | | | CORE | | + + + + + + | RDW SD | 41.5 | 35.1 - 46.3 fL | [facility] | | | | | | LABORATORY | | | | | | SERVICES, | | | | | | CORE | | + + + + + + | PLATELET | 200 | 150 - 400 K/cu | [facility] | | | COUNT | | mm | LABORATORY | | | | | | SERVICES, | | | | | | CORE | | + + + + + + | MPV | 10.6 | 9.7 - 12.3 fL | [facility] | | | | | | LABORATORY | | | | | | SERVICES, | | | | | | CORE | | + + + + + + | NRBC% | 0.0 | 0.0 - 0.3 % | [facility] | | | | | | LABORATORY | | | | | | SERVICES, | | | | | | CORE | | + + + + + + | NRBC# | 0.00 | 0.00 - 0.02 | [facility] | | | | | K/cu mm | LABORATORY | | | | | | SERVICES, | | | | | | CORE | | + + + + + + | NEUTROPHIL | 55.0 | 50.0 - 70.0 % | [facility] | | | % | | | LABORATORY | | | | | | SERVICES, | | | | | | CORE | | + + + + + + | LYMPHOCYTE | 31.9 | 18.0 - 42.0 % | [facility] | | | % | | | LABORATORY | | | | | | SERVICES, | | | | | | CORE | | + + + + + + | MONOCYTE % | 9.1 (H) | 3.5 - 9.0 % | [facility] | | | | | | LABORATORY | | | | | | SERVICES, | | | | | | CORE | | + + + + + + | EOS % | 2.9 | 1.0 - 3.0 % | [facility] | | | | | | LABORATORY | | | | | | SERVICES, | | | | | | CORE | | + + + + + + | BASO % | 0.8 | 0.0 - 2.0 % | [facility] | | | | | | LABORATORY | | | | | | SERVICES, | | | | | | CORE | | + + + + + + | IG% | 0.3Comment: Increased | 0.0 - 1.0 % | [facility] | | | | immature granulocytes | | LABORATORY | | | | (IG) define a left | | SERVICES, | | | | shift. Immature | | CORE | | | | granulocytes (IG) are an | | | | | | automated count of | | | | | | metamyelocytes, | | | | | | myelocytes and | | | | | | promyelocytes. Bands | | | | | | are not included in the | | | | | | IG count. Bands are | | | | | | included in the | | | | | | neutrophil count. | | | | + + + + + + | NEUTROPHIL | 4.22 | 1.80 - 7.70 | [facility] | | | # | | K/cu mm | LABORATORY | | | | | | SERVICES, | | | | | | CORE | | + + + + + + | LYMPHOCYTE | 2.45 | 1.00 - 4.80 | [facility] | | | # | | K/cu mm | LABORATORY | | | | | | SERVICES, | | | | | | CORE | | + + + + + + | MONOCYTE # | 0.70 | 0.10 - 0.90 | [facility] | | | | | K/cu mm | LABORATORY | | | | | | SERVICES, | | | | | | CORE | | + + + + + + | EOS # | 0.22 | 0.00 - 0.50 | [facility] | | | | | K/cu mm | LABORATORY | | | | | | SERVICES, | | | | | | CORE | | + + + + + + | BASO # | 0.06 | 0.00 - 0.10 | [facility] | | | | | K/cu mm | LABORATORY | | | | | | SERVICES, | | | | | | CORE | | + + + + + + | IG# | 0.02 | 0.00 - 0.10 | [facility] | | | | | K/cu mm | LABORATORY | | | | | | SERVICES, | | | | | | CORE | | + + + + + + + + | Specimen | + + | Blood - Blood | | (substance) | + + + + + | Narrative | Performed At | + + + | New reference ranges for IG% and IG# effective 08/30/2017. | [facility] | | Increased immature granulocytes (IG) define a left shift. Immature | LABORATORY | | granulocytes (IG) are an automated count of metamyelocytes, myelocytes | SERVICES, CORE | | and promyelocytes. Bands are not included in the IG count. Bands are | | | included in the neutrophil count. | | + + + + + + + + | Performing | Address | City/State/Zipcode | Phone Number | | Organization | | | | + + + + + | [facility] | [address] | [place] [address] | | | SERVICES, CORE | [address] | | | + + + + + APTT (ACT. PART. THROMBO TIME) (11/24/2017 4:43 AM PDT) + + + + + + | Component | Value | Ref Range | Performed | Pathologist | | | | | At | Signature | + + + + + + | APTT | 39.6 (H) | 26.0 - 36.0 | [facility] | | | | | seconds | LABORATORY | | | | | | SERVICES, | | | | | | CORE | | + + + + + + + + | Specimen | + + | Blood - Blood | | (substance) | + + + + + | Narrative | Performed At | + + + | APTT Therapeutic Range: (75 - | [facility] | | 120) sec Heparin levels of 0.35 - 0.7 U/mL | LABORATORY | | | SERVICES, CORE | + + + + + + + + | Performing | Address | City/State/Zipcode | Phone Number | | Organization | | | | + + + + + | [facility] | [address] | [place] [address] | | | SERVICES, CORE | [address] | | | + + + + + BASIC METABOLIC SET (NA, K, CL, TCO2, BUN, CR, GLU, CA) (11/24/2017 4:43 AM PDT) + +---------+ + + + | Component | Value | Ref Range | Performed | Pathologist | | | | | At | Signature | + +---------+ + + + | GLUCOSE, | 144 (H) | 70 - 99 mg/dL | [facility] | | | PLASMA | | | LABORATORY | | | (LAB) | | | SERVICES, | | | | | | CORE | | + +---------+ + + + | BUN, PLASMA | 19 | 6 - 20 mg/dL | [facility] | | | (LAB) | | | LABORATORY | | | | | | SERVICES, | | | | | | CORE | | + +---------+ + + + | CREATININE | 1.05 | 0.70 - 1.30 | [facility] | | | PLASMA | | mg/dL | LABORATORY | | | (LAB) | | | SERVICES, | | | | | | CORE | | + +---------+ + + + | EGFR | >60 | >60 mL/min | [facility] | | | - | | | LABORATORY | | | ERITREAN | | | SERVICES, | | | | | | CORE | | + +---------+ + + + | EGFR NON | >60 | >60 mL/min | [facility] | | | -[facility] | | | LABORATORY | | | RICAN | | | SERVICES, | | | | | | CORE | | + +---------+ + + + | SODIUM, | 142 | 136 - 145 | [facility] | | | PLASMA | | mmol/L | LABORATORY | | | (LAB) | | | SERVICES, | | | | | | CORE | | + +---------+ + + + | POTASSIUM, | 3.0 (L) | 3.4 - 5.0 | [facility] | | | PLASMA | | mmol/L | LABORATORY | | | (LAB) | | | SERVICES, | | | | | | CORE | | + +---------+ + + + | CHLORIDE, | 104 | 97 - 108 mmol/L | [facility] | | | PLASMA | | | LABORATORY | | | (LAB) | | | SERVICES, | | | | | | CORE | | + +---------+ + + + | TOTAL CO2, | 31 | 21 - 32 mmol/L | [facility] | | | PLASMA | | | LABORATORY | | | (LAB) | | | SERVICES, | | | | | | CORE | | + +---------+ + + + | CALCIUM, | 9.2 | 8.6 - 10.2 | [facility] | | | PLASMA | | mg/dL | LABORATORY | | | (LAB) | | | SERVICES, | | | | | | CORE | | + +---------+ + + + | ANION GAP | 7 | 4 - 11 mmol/L | [facility] | | | | | | LABORATORY | | | | | | SERVICES, | | | | | | CORE | | + +---------+ + + + | POTASSIUM | No Hemo | | [facility] | | | CMNT | | | LABORATORY | | | | | | SERVICES, | | | | | | CORE | | + +---------+ + + + + + | Specimen | + + | Blood - Blood | | (substance) | + + + + + | Narrative | Performed At | + + + | Adult glucose reference range change effective 7-12-17. Retime | [facility] | | start time for 8 hours after last lab GFR is estimated using the MDRD | LABORATORY | | equation recommended by the National Kidney Disease Education | SERVICES, CORE | | Program. Estimated GFR Interpretive Information: <60 mL/min/1.73 | | | sq m Chronic Kidney Disease <15 mL/min/1.73 sq m | | | Kidney Failure Estimated GFR greater that 60 | | | mL/min/1.73 sq m is of limited clinical value. The MDRD equation | | | is not valid in the following situations: - Patients under 18 years | | | of age - Severe malnutrition or obesity - Vegetarian diet - Rapidly | | | changing kidney function | | + + + + + + + + | Performing | Address | City/State/Zipcode | Phone Number | | Organization | | | | + + + + + | [facility] | [address] | [place] [address] | | | SERVICES, CORE | [address] | | | + + + + + TROPONIN I, PLASMA (11/24/2017 4:43 AM PDT) + +-------+ + + + | Component | Value | Ref Range | Performed | Pathologist | | | | | At | Signature | + +-------+ + + + | TROPONIN I | 0.22 | <0.80 ng/mL | [facility] | | | | | | LABORATORY | | | | | | SERVICES, | | | | | | CORE | | + +-------+ + + + + + | Specimen | + + | Blood - Blood | | (substance) | + + + + + | Narrative | Performed At | + + + | Retime start time for 8 hours after last lab | [facility] | | | LABORATORY | | | [facility]ILL[facility] | + + + + + + + + | Performing | Address | City/State/Zipcode | Phone Number | | Organization | | | | + + + + + | [facility] | [address] | [place] [address] | | | [place] [place] | [address] | | | + + + + + CARDIOLOGY (11/24/2017 12:00 AM PDT) + + + | Narrative | Performed At | + + + | | | + + + CARDIOLOGY (11/24/2017 12:00 AM PDT) + + + | Narrative | Performed At | + + + | | | + + + 12 LEAD ECG (11/23/2017 10:00 PM PDT) + + + + + + | Component | Value | Ref Range | Performed | Pathologist | | | | | At | Signature | + + + + + + | VENTRICULAR | 64 | bpm | [facility] | | | RATE | | | OF | | | | | | CARDIOLOGY | | + + + + + + | ATRIAL RATE | 66 | ms | [facility] | | | | | | OF | | | | | | CARDIOLOGY | | + + + + + + | P-R | 248 | ms | [facility] | | | INTERVAL | | | OF | | | | | | CARDIOLOGY | | + + + + + + | P AXIS | 50 | deg | [facility] | | | | | | OF | | | | | | CARDIOLOGY | | + + + + + + | QRS | 124 | ms | [facility] | | | DURATION | | | OF | | | | | | CARDIOLOGY | | + + + + + + | QT | 452 | ms | [facility] | | | | | | OF | | | | | | CARDIOLOGY | | + + + + + + | JOHNNIE-MONA | 467 | ms | [facility] | | | | | | OF | | | | | | CARDIOLOGY | | + + + + + + | R AXIS | -72 | deg | [facility] | | | | | | OF | | | | | | CARDIOLOGY | | + + + + + + | T AXIS | 97 | deg | [facility] | | | | | | OF | | | | | | CARDIOLOGY | | + + + + + + | ECG | Gender not entered, | | [facility] | | | IMPRESSION | assumed to be male for | | OF | | | | purpose of ECG | | CARDIOLOGY | | | | interpretation | | | | + + + + + + | ECG | Sinus rhythm | | [facility] | | | IMPRESSION | | | OF | | | | | | CARDIOLOGY | | + + + + + + | ECG | Prolonged UT interval | | [facility] | | | IMPRESSION | | | OF | | | | | | CARDIOLOGY | | + + + + + + | ECG | LVH with secondary | | [facility] | | | IMPRESSION | repolarization | | OF | | | | abnormality- ABNORMAL | | CARDIOLOGY | | | | ECG - | | | | + + + + + + | ECG | Electronically signed | | [facility] | | | IMPRESSION | by: ESPERANZA BERMUDEZ | | OF | | | | 11-24-2017 07:51:16 | | CARDIOLOGY | | + + + + + + + + | Specimen | + + | | + + + + + | Narrative | Performed At | + + + | | | + + + + + + + + | Performing | Address | City/State/Zipcode | Phone Number | | Organization | | | | + + + + + | [facility] | [address] | [place], [place] | | | CARDIOLOGY | [address] | [address] | | + + + + + X-RAY PORTABLE CHEST 1 VIEW (11/23/2017 10:00 PM PDT) + + | Specimen | + + | | + + + + + | Narrative | Performed At | + + + | STUDY: UT CHEST 1 VIEW HISTORY: Chest pain. COMPARISON: | [facility] | | None. FINDINGS: Cardiac and mediastinal contours are normal. | RADIOLOGY VOICE | | The lungs are clear. There is no pneumothorax or pleural effusion. | RECOGNITION | | The bones are normal. IMPRESSION: Normal chest. I | | | have personally reviewed the images and, if necessary, edited the | | | report. I agree with the report as now presented. | | + + + + + | Procedure Note | + + | Service Account, RadiDebt Resolve Res In Interface - 11/24/2017 8:22 AM PDT STUDY: UT CHEST 1 | | VIEWHISTORY: Chest pain.COMPARISON: None.FINDINGS: Cardiac and mediastinal contours are | | normal. The lungs are clear. There is no pneumothorax or pleural effusion. The bones | | are normal.IMPRESSION: Normal chest.I have personally reviewed the images and, if | | necessary, edited the report. I agree with the report as now presented. | | | |FINDINGS: | | | |Cardiac and mediastinal contours are normal. The lungs are clear. There is no pneumothora x or pleural effusion. The bones are normal. | | | |IMPRESSION: | | | |Normal chest. | | | | | |I have personally reviewed the images and, if necessary, edited the report. I agree with t he report as now presented. | + + + +---------+ + + | Performing | Address | City/State/Zipcode | Phone Number | | Organization | | | | + +---------+ + + | [facility] | | | | | VOICE RECOGNITION | | | | + +---------+ + + CAPILLARY BLOOD GLUCOSE (NO CHG), POC (11/23/2017 9:17 PM PDT) + +---------+ + + + | Component | Value | Ref Range | Performed | Pathologist | | | | | At | Signature | + +---------+ + + + | BLOOD | 114 (H) | 70 - 99 mg/dL | [facility] - | | | GLUCOSE, | | | [facility] | | | POC | | | [facility] | | | | | | OF CARE | | | | | | TESTS | | + +---------+ + + + + + | Specimen | + + | | + + + + + + + | Performing | Address | City/State/Zipcode | Phone Number | | Organization | | | | + + + + + | [facility] | [address] | [place], [place] | | | [facility] | [address] | [address] | | | TESTS | | | | + + + + + CBC AND AUTO DIFF (11/23/2017 8:47 PM PDT) + + + + + + | Component | Value | Ref Range | Performed | Pathologist | | | | | At | Signature | + + + + + + | WHITE CELL | 9.37 | 3.50 - 10.80 | [facility] | | | COUNT | | K/cu mm | LABORATORY | | | | | | SERVICES, | | | | | | CORE | | + + + + + + | RED CELL | 4.95 | 4.50 - 6.00 | [facility] | | | COUNT | | M/cu mm | LABORATORY | | | | | | SERVICES, | | | | | | CORE | | + + + + + + | HEMOGLOBIN | 12.5 (L) | 13.5 - 17.5 | [facility] | | | | | g/dL | LABORATORY | | | | | | SERVICES, | | | | | | CORE | | + + + + + + | HEMATOCRIT | 38.4 (L) | 41.0 - 53.0 % | [facility] | | | | | | LABORATORY | | | | | | SERVICES, | | | | | | CORE | | + + + + + + | MCV | 77.6 (L) | 80.0 - 96.0 fL | [facility] | | | | | | LABORATORY | | | | | | SERVICES, | | | | | | CORE | | + + + + + + | MCHC | 32.6 | 33.0 - 35.5 | [facility] | | | | | g/dL | LABORATORY | | | | | | SERVICES, | | | | | | CORE | | + + + + + + | RDW SD | 42.3 | 35.1 - 46.3 fL | [facility] | | | | | | LABORATORY | | | | | | SERVICES, | | | | | | CORE | | + + + + + + | PLATELET | 222 | 150 - 400 K/cu | [facility] | | | COUNT | | mm | LABORATORY | | | | | | SERVICES, | | | | | | CORE | | + + + + + + | MPV | 10.8 | 9.7 - 12.3 fL | [facility] | | | | | | LABORATORY | | | | | | SERVICES, | | | | | | CORE | | + + + + + + | NRBC% | 0.0 | 0.0 - 0.3 % | [facility] | | | | | | LABORATORY | | | | | | SERVICES, | | | | | | CORE | | + + + + + + | NRBC# | 0.00 | 0.00 - 0.02 | [facility] | | | | | K/cu mm | LABORATORY | | | | | | SERVICES, | | | | | | CORE | | + + + + + + | NEUTROPHIL | 60.1 | 50.0 - 70.0 % | [facility] | | | % | | | LABORATORY | | | | | | SERVICES, | | | | | | CORE | | + + + + + + | LYMPHOCYTE | 29.2 | 18.0 - 42.0 % | [facility] | | | % | | | LABORATORY | | | | | | SERVICES, | | | | | | CORE | | + + + + + + | MONOCYTE % | 6.8 | 3.5 - 9.0 % | [facility] | | | | | | LABORATORY | | | | | | SERVICES, | | | | | | CORE | | + + + + + + | EOS % | 2.7 | 1.0 - 3.0 % | [facility] | | | | | | LABORATORY | | | | | | SERVICES, | | | | | | CORE | | + + + + + + | BASO % | 0.9 | 0.0 - 2.0 % | [facility] | | | | | | LABORATORY | | | | | | SERVICES, | | | | | | CORE | | + + + + + + | IG% | 0.3Comment: Increased | 0.0 - 1.0 % | [facility] | | | | immature granulocytes | | LABORATORY | | | | (IG) define a left | | SERVICES, | | | | shift. Immature | | CORE | | | | granulocytes (IG) are an | | | | | | automated count of | | | | | | metamyelocytes, | | | | | | myelocytes and | | | | | | promyelocytes. Bands | | | | | | are not included in the | | | | | | IG count. Bands are | | | | | | included in the | | | | | | neutrophil count. | | | | + + + + + + | NEUTROPHIL | 5.63 | 1.80 - 7.70 | [facility] | | | # | | K/cu mm | LABORATORY | | | | | | SERVICES, | | | | | | CORE | | + + + + + + | LYMPHOCYTE | 2.74 | 1.00 - 4.80 | [facility] | | | # | | K/cu mm | LABORATORY | | | | | | SERVICES, | | | | | | CORE | | + + + + + + | MONOCYTE # | 0.64 | 0.10 - 0.90 | [facility] | | | | | K/cu mm | LABORATORY | | | | | | SERVICES, | | | | | | CORE | | + + + + + + | EOS # | 0.25 | 0.00 - 0.50 | [facility] | | | | | K/cu mm | LABORATORY | | | | | | SERVICES, | | | | | | CORE | | + + + + + + | BASO # | 0.08 | 0.00 - 0.10 | [facility] | | | | | K/cu mm | LABORATORY | | | | | | SERVICES, | | | | | | CORE | | + + + + + + | IG# | 0.03 | 0.00 - 0.10 | [facility] | | | | | K/cu mm | LABORATORY | | | | | | SERVICES, | | | | | | CORE | | + + + + + + + + | Specimen | + + | Blood - Blood | | (substance) | + + + + + | Narrative | Performed At | + + + | New reference ranges for IG% and IG# effective 08/30/2017. | [facility] | | Increased immature granulocytes (IG) define a left shift. Immature | LABORATORY | | granulocytes (IG) are an automated count of metamyelocytes, myelocytes | SERVICES, CORE | | and promyelocytes. Bands are not included in the IG count. Bands are | | | included in the neutrophil count. | | + + + + + + + + | Performing | Address | City/State/Zipcode | Phone Number | | Organization | | | | + + + + + | [facility] | [address] | [place] [address] | | | SERVICES, CORE | [address] | | | + + + + + HEMOGLOBIN A1C, BLOOD (11/23/2017 8:47 PM PDT) + + + + + + | Component | Value | Ref Range | Performed | Pathologist | | | | | At | Signature | + + + + + + | HEMOGLOBIN | 6.1 (H)Comment: Hgb A1C | <5.7 % | [facility] | | | A1C | Interpretive | | LABORATORY | | | | Information: | | SERVICES, | | | | <5.7% - Normal | | SPECIAL IMM | | | | 5.7-6.4% - Consistent | | + [facility] | | | | with pre-diabetes | | | | | | >6.4% - Consistent | | | | | | with diabetes | | | | | | | | | | + + + + + + + + | Specimen | + + | Blood - Blood | | (substance) | + + + + + | Narrative | Performed At | + + + | Alternate forms of testing such as fructosamine should be | [facility] | | considered for monitoring buttermilk drier operator glycemic control in patients with: | LABORATORY | | Increased red cell turnover, certain hemoglobinopathies (e.g., HbS, | SERVICES, | | HbE, HbC and thalassemia syndromes), anemias, blood loss, chronic | SPECIAL IMM + | | liver disease and hemochromatosis (artefactually low HbA1c); iron | [facility] | | deficiency anemia (artefactually high HbA1c due to enhanced glycation | | | of hemoglobin). | | + + + + + + + + | Performing | Address | City/State/Zipcode | Phone Number | | Organization | | | | + + + + + | [facility] | [address] | [place] [address] | | | SERVICES, SPECIAL | [address] | | | | IMM + [facility] | | | | + + + + + INR (11/23/2017 8:47 PM PDT) + +-------+ + + + | Component | Value | Ref Range | Performed | Pathologist | | | | | At | Signature | + +-------+ + + + | INR | 0.97 | 0.90 - 1.20 INR | [facility] | | | | | | LABORATORY | | | | | | SERVICES, | | | | | | CORE | | + +-------+ + + + + + | Specimen | + + | Blood - Blood | | (substance) | + + + + + | Narrative | Performed At | + + + | INR Therapeutic ranges for full anticoagulation: INR for | [facility] | | Venous Thromboembolism (2.0 - 3.0) INR INR for | LABORATORY | | most patients with mech. valves (2.5 - 3.5) INR | [facility] | + + + + + + + + | Performing | Address | City/State/Zipcode | Phone Number | | Organization | | | | + + + + + | [facility] | [address] | [place] [address] | | | [facility] | [address] | | | + + + + + LIPID SET (TRIG, T CHOL, HDL, CALC LDL) (11/23/2017 8:47 PM PDT) + +---------+ + + + | Component | Value | Ref Range | Performed | Pathologist | | | | | At | Signature | + +---------+ + + + | CHOLESTEROL | 184 | <200 mg/dL | [facility] | | | (LAB) | | | LABORATORY | | | | | | SERVICES, | | | | | | CORE | | + +---------+ + + + | TRIGLYCERID | 215 (H) | <150 mg/dL | [facility] | | | ES | | | LABORATORY | | | | | | SERVICES, | | | | | | CORE | | + +---------+ + + + | HDL | 31 (L) | >40 mg/dL | [facility] | | | CHOLESTEROL | | | LABORATORY | | | | | | SERVICES, | | | | | | CORE | | + +---------+ + + + | HDL CMNT | No Hemo | | [facility] | | | | | | LABORATORY | | | | | | SERVICES, | | | | | | CORE | | + +---------+ + + + | LDL | 110 (H) | <100 mg/dL | [facility] | | | CHOLESTEROL | | | LABORATORY | | | , | | | SERVICES, | | | CALCULATED | | | CORE | | + +---------+ + + + | VLDL | 43 (H) | <31 mg/dL | [facility] | | | CHOLESTEROL | | | LABORATORY | | | , | | | SERVICES, | | | CALCULATED | | | CORE | | + +---------+ + + + | NON-HDL | 153 (H) | <130 mg/dL | [facility] | | | CHOLESTEROL | | | LABORATORY | | | | | | SERVICES, | | | | | | CORE | | + +---------+ + + + + + | Specimen | + + | Blood - Blood | | (substance) | + + + + + | Narrative | Performed At | + + + | Retime start time for 8 hours after last lab Cholesterol Reference | [facility] | | Range: Desirable: <200 mg/dL | LABORATORY | | Borderline High: 200 - 239 mg/dL High: >=240 | SERVICES, CORE | | mg/dL LDL Cholesterol Reference Range: | | | Optimal: <100 mg/dL Near Optimal: 100-129 | | | mg/dL Borderline High: 130-159 mg/dL | | | High: 160-189 mg/dL Very High: >=190 mg/dL | | | non-HDL Cholesterol Reference Range: Optimal: | | | <130 mg/dL Near Optimal: 130-159 mg/dL | | | Borderline High: 160-189 mg/dL High: | | | 190-209 mg/dL Very High: >=210 mg/dL | | | Triglyceride Reference Range: Normal: <150 mg/dL | | | Borderline High: 150-199 mg/dL High: 200-499 | | | mg/dL Very High: >=500 mg/dL HDL Reference Range: | | | High Risk: <40 mg/dL Desirable: >=60 | | | mg/dL | | + + + + + + + + | Performing | Address | City/State/Zipcode | Phone Number | | Organization | | | | + + + + + | [facility] | [address] | [place] [address] | | | SERVICES, CORE | [address] | | | + + + + + TROPONIN I, PLASMA (11/23/2017 8:47 PM PDT) + +-------+ + + + | Component | Value | Ref Range | Performed | Pathologist | | | | | At | Signature | + +-------+ + + + | TROPONIN I | 0.11 | <0.80 ng/mL | [facility] | | | | | | LABORATORY | | | | | | SERVICES, | | | | | | CORE | | + +-------+ + + + + + | Specimen | + + | Blood - Blood | | (substance) | + + + + + | Narrative | Performed At | + + + | Retime start time for 8 hours after last lab | [facility] | | | LABORATORY | | | SERVICES, CORE | + + + + + + + + | Performing | Address | City/State/Zipcode | Phone Number | | Organization | | | | + + + + + | [facility] | [address] | [place] [address] | | | SERVICES, CORE | [address] | | | + + + + + APTT (ACT. PART. THROMBO TIME) (11/23/2017 8:47 PM PDT) + + + + + + | Component | Value | Ref Range | Performed | Pathologist | | | | | At | Signature | + + + + + + | APTT | 37.6 (H) | 26.0 - 36.0 | [facility] | | | | | seconds | LABORATORY | | | | | | SERVICES, | | | | | | CORE | | + + + + + + + + | Specimen | + + | Blood - Blood | | (substance) | + + + + + | Narrative | Performed At | + + + | APTT Therapeutic Range: (75 - | [facility] | | 120) sec Heparin levels of 0.35 - 0.7 U/mL | LABORATORY | | | SERVICES, CORE | + + + + + + + + | Performing | Address | City/State/Zipcode | Phone Number | | Organization | | | | + + + + + | [facility] | [address] | [place] [address] | | | SERVICES, CORE | [address] | | | + + + + + MAGNESIUM, PLASMA (11/23/2017 8:47 PM PDT) + +-------+ + + + | Component | Value | Ref Range | Performed | Pathologist | | | | | At | Signature | + +-------+ + + + | MAGNESIUM,P | 1.9 | 1.6 - 2.6 mg/dL | [facility] | | | LASMA | | | LABORATORY | | | | | | [place], | | | | | | CORE | | + +-------+ + + + + + | Specimen | + + | Blood - Blood | | (substance) | + + + + + | Narrative | Performed At | + + + | Retime start time for 8 hours after last lab Reference range change | [facility] | | effective 03/24/17. | LABORATORY | | | SERVICES, CORE | + + + + + + + + | Performing | Address | City/State/Zipcode | Phone Number | | Organization | | | | + + + + + | [facility] | [address] | [place] [address] | | | SERVICES, CORE | [address] | | | + + + + + COMPLETE METABOLIC SET (NA,K,CL,CO2,BUN,CREAT,GLUC,CA,AST,ALT,BILI TOTAL,ALK PHOS,ALB,PROT TOTAL) (11/23/2017 8:47 PM PDT) + +---------+ + + + | Component | Value | Ref Range | Performed | Pathologist | | | | | At | Signature | + +---------+ + + + | GLUCOSE, | 119 (H) | 70 - 99 mg/dL | [facility] | | | PLASMA | | | LABORATORY | | | (LAB) | | | SERVICES, | | | | | | CORE | | + +---------+ + + + | BUN, PLASMA | 19 | 6 - 20 mg/dL | [facility] | | | (LAB) | | | LABORATORY | | | | | | SERVICES, | | | | | | CORE | | + +---------+ + + + | CREATININE | 1.07 | 0.70 - 1.30 | [facility] | | | PLASMA | | mg/dL | LABORATORY | | | (LAB) | | | SERVICES, | | | | | | CORE | | + +---------+ + + + | EGFR | >60 | >60 mL/min | [facility] | | | - | | | LABORATORY | | | ERITREAN | | | SERVICES, | | | | | | CORE | | + +---------+ + + + | EGFR NON | >60 | >60 mL/min | [facility] | | | -[facility] | | | LABORATORY | | | RICAN | | | SERVICES, | | | | | | CORE | | + +---------+ + + + | SODIUM, | 142 | 136 - 145 | [facility] | | | PLASMA | | mmol/L | LABORATORY | | | (LAB) | | | SERVICES, | | | | | | CORE | | + +---------+ + + + | POTASSIUM, | 3.1 (L) | 3.4 - 5.0 | [facility] | | | PLASMA | | mmol/L | LABORATORY | | | (LAB) | | | SERVICES, | | | | | | CORE | | + +---------+ + + + | CHLORIDE, | 104 | 97 - 108 mmol/L | [facility] | | | PLASMA | | | LABORATORY | | | (LAB) | | | SERVICES, | | | | | | CORE | | + +---------+ + + + | TOTAL CO2, | 32 | 21 - 32 mmol/L | [facility] | | | PLASMA | | | LABORATORY | | | (LAB) | | | SERVICES, | | | | | | CORE | | + +---------+ + + + | CALCIUM, | 9.4 | 8.6 - 10.2 | [facility] | | | PLASMA | | mg/dL | LABORATORY | | | (LAB) | | | SERVICES, | | | | | | CORE | | + +---------+ + + + | CALCIUM(ALB | 9.1 | 8.6 - 10.2 | [facility] | | | CORRECTED) | | mg/dL | LABORATORY | | | | | | SERVICES, | | | | | | CORE | | + +---------+ + + + | BILIRUBIN | 0.6 | 0.3 - 1.2 mg/dL | [facility] | | | TOTAL | | | LABORATORY | | | | | | SERVICES, | | | | | | CORE | | + +---------+ + + + | TOTAL | 7.9 | 6.4 - 8.2 g/dL | [facility] | | | PROTEIN, | | | LABORATORY | | | PLASMA | | | SERVICES, | | | (LAB) | | | CORE | | + +---------+ + + + | ALBUMIN, | 4.4 | 3.5 - 4.7 g/dL | [facility] | | | PLASMA | | | LABORATORY | | | (LAB) | | | SERVICES, | | | | | | CORE | | + +---------+ + + + | ALK PHOS | 109 | 53 - 128 U/L | [facility] | | | | | | LABORATORY | | | | | | SERVICES, | | | | | | CORE | | + +---------+ + + + | AST(SGOT) | 13 | <=41 U/L | [facility] | | | | | | LABORATORY | | | | | | SERVICES, | | | | | | CORE | | + +---------+ + + + | ALT (SGPT) | 16 | <=60 U/L | [facility] | | | | | | LABORATORY | | | | | | SERVICES, | | | | | | CORE | | + +---------+ + + + | ANION GAP | 6 | 4 - 11 mmol/L | [facility] | | | | | | LABORATORY | | | | | | SERVICES, | | | | | | CORE | | + +---------+ + + + | ANION | 5 | 4 - 11 mmol/L | [facility] | | | GAP(ALB | | | LABORATORY | | | CORRECTED) | | | SERVICES, | | | | | | CORE | | + +---------+ + + + | POTASSIUM | No Hemo | | [facility] | | | CMNT | | | LABORATORY | | | | | | SERVICES, | | | | | | CORE | | + +---------+ + + + | BILI T CMNT | No Hemo | | [facility] | | | | | | LABORATORY | | | | | | SERVICES, | | | | | | CORE | | + +---------+ + + + | AST CMNT | No Hemo | | [facility] | | | | | | LABORATORY | | | | | | SERVICES, | | | | | | CORE | | + +---------+ + + + + + | Specimen | + + | Blood - Blood | | (substance) | + + + + + | Narrative | Performed At | + + + | Adult glucose reference range change effective 7-12-17. Retime | [facility] | | start time for 8 hours after last lab GFR is estimated using the MDRD | LABORATORY | | equation recommended by the National Kidney Disease Education | SERVICES, CORE | | Program. Estimated GFR Interpretive Information: <60 mL/min/1.73 | | | sq m Chronic Kidney Disease <15 mL/min/1.73 sq m | | | Kidney Failure Estimated GFR greater that 60 | | | mL/min/1.73 sq m is of limited clinical value. 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) - Primary | + + | NSTEMI (non-ST elevated myocardial infarction) (HCC) Acute myocardial infarction, | | subendocardial infarction, episode of care unspecified | + + | HLD (hyperlipidemia) Other and unspecified hyperlipidemia | + + | HTN (hypertension) Unspecified essential hypertension | + + | Type 2 diabetes mellitus (HCC) Type II or unspecified type diabetes mellitus without | | mention of complication, not stated as uncontrolled | + + | S/P coronary artery stent placement Postsurgical percutaneous transluminal coronary | | angioplasty status | + + | Ischemic cardiomyopathy Other specified forms of chronic ischemic heart disease | + + | Ascending aortic aneurysm (HCC) Thoracic aneurysm without mention of rupture | + + documented in this encounter Administered Medications + +--------+ +--------+------+------+ | Medication Order | MAR | Action | Dose | Rate | Site | | | Action | Date | | | | + +--------+ +--------+------+------+ | acetaminophen (TYLENOL) tablet | Given | 11/26/19 | 650 mg | | | | 650 mg 650 mg, oral, EVERY 4 | | 18 8:44 | | | | | HOURS NEEDED, Starting Mon | | AM PDT | | | | | 11/23/17 at 2105, Until Wed | | | | | | | 11/25/17 at 2204, multimodal pain | | | | | | | control | | | | | | + +--------+ +--------+------+------+ +-------+ +--------+---+---+ | Given | 11/25/19 | 650 mg | | | | | 18 5:48 | | | | | | PM PDT | | | | +-------+ +--------+---+---+ | Given | 11/24/19 | 650 mg | | | | | 18 10:18 | | | | | | PM PDT | | | | +-------+ +--------+---+---+ +---+---+ | | | +---+---+ + +-------+ +-------+---+---+ | amLODIPine (NORVASC) tablet 10 | Given | 11/25/19 | 10 mg | | | | mg 10 mg, oral, DAILY, First | | 18 7:44 | | | | | dose on Thu11/24/17 at 0900, | | AM PDT | | | | | Until Discontinued | | | | | | + +-------+ +-------+---+---+ +---+---+ | | | +---+---+ + +-------+ +-------+---+---+ | aspirin chewable tablet 81 mg | Given | 11/26/19 | 81 mg | | | | 81 mg, oral, DAILY, First dose on | | 18 8:39 | | | | | Thu11/24/17 at 0900, Until | | AM PDT | | | | | Discontinued | | | | | | + +-------+ +-------+---+---+ +-------+ +-------+---+---+ | Given | 11/25/19 | 81 mg | | | | | 18 7:44 | | | | | | AM PDT | | | | +-------+ +-------+---+---+ +---+---+ | | | +---+---+ + +-------+ +-------+---+---+ | atorvastatin (LIPITOR) tablet | Given | 11/26/19 | 80 mg | | | | 80 mg 80 mg, oral, DAILY, First | | 18 8:39 | | | | | dose on Thu11/24/17 at 0900, | | AM PDT | | | | | Until Discontinued | | | | | | + +-------+ +-------+---+---+ +-------+ +-------+---+---+ | Given | 11/25/19 | 80 mg | | | | | 18 7:44 | | | | | | AM PDT | | | | +-------+ +-------+---+---+ + +---+ | | | + +---+ | bisacodyl (DULCOLAX) | | | suppository 10 mg 10 mg, rectal, | | | DAILY NEEDED, Starting Mon | | | 11/23/17 at 2025, Until Wed | | | 11/25/17 at 2204, 2nd line for no | | | BM in past 2 days or if no | | | response to MIRALAX or if patient | | | unable to tolerate oral | | + +---+ | | | + +---+ + +-------+ +---------+---+---+ | carvedilol (COREG) tablet 6.25 | Given | 11/26/19 | 6.25 mg | | | | mg 6.25 mg, oral, TWICE DAILY | | 18 8:40 | | | | | WITH MEALS, First dose on Thu | | AM PDT | | | | | 11/24/17 at 1115, Until | | | | | | | Discontinued | | | | | | + +-------+ +---------+---+---+ +-------+ +---------+---+---+ | Given | 11/25/19 | 6.25 mg | | | | | 18 5:28 | | | | | | PM PDT | | | | +-------+ +---------+---+---+ | Given | 11/25/19 | 6.25 mg | | | | | 18 12:10 | | | | | | PM PDT | | | | +-------+ +---------+---+---+ +---+---+ | | | +---+---+ + +-------+ +-------+---+---+ | clopidogrel (PLAVIX) tablet 75 | Given | 11/26/19 | 75 mg | | | | mg 75 mg, oral, DAILY, First | | 18 8:40 | | | | | dose on Thu11/25/17 at 0900, | | AM PDT | | | | | Until Discontinued | | | | | | + +-------+ +-------+---+---+ +---+---+ | | | +---+---+ + +-------+ +--------+---+---+ | clopidogrel (PLAVIX) tablet | Given | 11/25/19 | 600 mg | | | | oral, INTRAPROCEDURE PRN, | | 18 4:18 | | | | | Starting Thu11/24/17 at 1618, | | PM PDT | | | | | Until Thu11/24/17 at 1618 | | | | | | + +-------+ +--------+---+---+ + +---+ | | | + +---+ | dextrose 50 % in water IV 25 mL | | | 25 mL, intravenous, NEEDED, | | | Starting Thu11/23/17 at 2106, | | | Until Thu11/25/17 at 2204, CBG | | | less than 70 mg/dL if patient | | | unable to take PO, per Adult | | | Hypoglycemia Protocol | | + +---+ | | | + +---+ + +-------+ +--------+---+---+ | fentaNYL (SUBLIMAZE) injection | Given | 11/25/19 | 25 mcg | | | | intravenous, INTRAPROCEDURE PRN, | | 18 3:44 | | | | | Starting 11/24/17 at 1454, | | PM PDT | | | | | Until Thu11/24/17 at 1544 | | | | | | + +-------+ +--------+---+---+ +-------+ +--------+---+---+ | Given | 11/25/19 | 25 mcg | | | | | 18 3:40 | | | | | | PM PDT | | | | +-------+ +--------+---+---+ | Given | 11/25/19 | 50 mcg | | | | | 18 2:59 | | | | | | PM PDT | | | | +-------+ +--------+---+---+ + +---+ | | | + +---+ | glucagon (GLUCAGEN) injection 1 | | | mg 1 mg, intramuscular, | | | NEEDED, Starting 11/23/17 at | | | 2106, Until Thu11/25/17 at 2204, | | | CBG less than 70 mg/dL per Adult | | | Hypoglycemia Protocol | | + +---+ | | | + +---+ | glucose chewable tablet 16 g | | | 16 g, oral, NEEDED, Starting | | | Thu11/23/17 at 2106, Until Wed | | | 11/25/17 at 2204, CBG less than 70 | | | mg/dL per Adult Hypoglycemia | | | Protocol | | + +---+ | | | + +---+ + +-------+ +--------+---+---+ | heparin 1,000 unit/mL injection | Given | 11/25/19 | 3,000 | | | | intravenous, INTRAPROCEDURE | | 18 3:48 | Units | | | | PRN, Starting Thu11/24/17 at | | PM PDT | | | | | 1505, Until Thu11/24/17 at 1548 | | | | | | + +-------+ +--------+---+---+ +-------+ +--------+---+---+ | Given | 11/25/19 | 1,000 | | | | | 18 3:30 | Units | | | | | PM PDT | | | | +-------+ +--------+---+---+ | Given | 11/25/19 | 2,000 | | | | | 18 3:28 | Units | | | | | PM PDT | | | | +-------+ +--------+---+---+ +---+---+ | | | +---+---+ + + + +--------+---+---+ | heparin bolus from continuous | Bolus | 11/24/19 | 4,000 | | | | infusion 4,000 Units | from | 18 10:20 | Units | | | | intravenous, ONCE, 1 dose, Mon | Same Bag | PM PDT | | | | | 11/23/17 at 2145 | | | | | | + + + +--------+---+---+ +---+---+ | | | +---+---+ + + + + + +---+ | heparin in D5W 25,000 Units/250 | Rate/Dos | 11/25/19 | 1,400 | 14 mL/hr | | | mL (100 Units/mL) IV infusion | e Change | 18 1:58 | Units/hr | | | | (RTU) 1-2,500 Units/hr (0.01-25 | | PM PDT | | | | | mL/hr), intravenous, CONTINUOUS, | | | | | | | Starting 11/23/17 at 2145, | | | | | | | Until 11/24/17 at 1641 | | | | | | + + + + + +---+ + + + + +---+ | Rate/Dose Verify | 11/25/19 | 1,200 | 12 mL/hr | | | | 18 7:07 | Units/hr | | | | | AM PDT | | | | + + + + +---+ | Rate/Dose Change | 11/25/19 | 1,200 | 12 mL/hr | | | | 18 6:07 | Units/hr | | | | | AM PDT | | | | + + + + +---+ +---+---+ | | | +---+---+ + +-------+ +---------+---+---------+ | insulin lispro (HUMALOG) | Given | 11/26/19 | 2 Units | | Abdomen | | injection subcutaneous, WITH | | 18 1:19 | | | | | MEALS AND BEDTIME, First dose on | | PM PDT | | | | | 11/23/17 at 2300, Until | | | | | | | Discontinued | | | | | | + +-------+ +---------+---+---------+ +-------+ +---------+---+---------+ | Given | 11/25/19 | 2 Units | | Abdomen | | | 18 10:14 | | | | | | PM PDT | | | | +-------+ +---------+---+---------+ +---+---+ | | | +---+---+ + +-------+ + +---+---------+ | insulin NPH (HUMULIN N) | Given | 11/25/19 | 34 Units | | Abdomen | | injection 34 Units 34 Units, | | 18 6:50 | | | | | subcutaneous, BEFORE BREAKFAST, | | AM PDT | | | | | First dose on Thu11/24/17 at | | | | | | | 0630, Until Discontinued | | | | | | + +-------+ + +---+---------+ +---+---+ | | | +---+---+ + +-------+ + +---+---------+ | insulin NPH (HUMULIN N) | Given | 11/26/19 | 34 Units | | Abdomen | | injection 34 Units 34 Units, | | 18 6:53 | | | | | subcutaneous, BEFORE BREAKFAST, | | AM PDT | | | | | First dose (after last | | | | | | | modification) on Thu11/25/17 at | | | | | | | 0630, Until Discontinued | | | | | | + +-------+ + +---+---------+ +---+---+ | | | +---+---+ + +-------+ +--------+---+---+ | iohexol (OMNIPAQUE) 350 mg | Given | 11/25/19 | 150 mL | | | | iodine/mL injection | | 18 4:11 | | | | | INTRAPROCEDURE PRN, Starting Tue | | PM PDT | | | | | 11/24/17 at 1611, Until Tue | | | | | | | 11/24/17 at 1611 | | | | | | + +-------+ +--------+---+---+ +---+---+ | | | +---+---+ + +-------+ +------+---+---+ | lidocaine (XYLOCAINE) 10 mg/mL | Given | 11/25/19 | 1 mL | | | | (1 %) injection infiltration, | | 18 2:59 | | | | | INTRAPROCEDURE PRN, Starting Tue | | PM PDT | | | | | 11/24/17 at 1459, Until Tue | | | | | | | 11/24/17 at 1459 | | | | | | + +-------+ +------+---+---+ +---+---+ | | | +---+---+ + +-------+ +-------+---+---+ | lisinopril (PRINIVIL) tablet 10 | Given | 11/25/19 | 10 mg | | | | mg 10 mg, oral, DAILY, First | | 18 7:44 | | | | | dose on Thu11/24/17 at 0900, | | AM PDT | | | | | Until Discontinued | | | | | | + +-------+ +-------+---+---+ +---+---+ | | | +---+---+ + +-------+ +-------+---+---+ | lisinopril (PRINIVIL) tablet 10 | Given | 11/25/19 | 10 mg | | | | mg 10 mg, oral, ONCE, 1 dose, | | 18 5:28 | | | | | Thu11/24/17 at 1715 | | PM PDT | | | | + +-------+ +-------+---+---+ +---+---+ | | | +---+---+ + +-------+ +-------+---+---+ | lisinopril (PRINIVIL) tablet 40 | Given | 11/26/19 | 40 mg | | | | mg 40 mg, oral, DAILY, First | | 18 8:39 | | | | | dose (after last modification) on | | AM PDT | | | | | 11/25/17 at 0900, Until | | | | | | | Discontinued | | | | | | + +-------+ +-------+---+---+ + +---+ | | | + +---+ | melatonin tablet 3 mg 3 mg, | | | oral, AT BEDTIME NEEDED, | | | Starting 11/23/17 at 6, | | | Until Thu11/25/17 at 2204, | | | insomnia | | + +---+ | | | + +---+ + +-------+ +---------+---+---+ | metoprolol tartrate (LOPRESSOR) | Given | 11/25/19 | 12.5 mg | | | | tablet 12.5 mg 12.5 mg, oral, | | 18 7:44 | | | | | TWICE DAILY, First dose on Mon | | AM PDT | | | | | 11/23/17 at 2300, Until | | | | | | | Discontinued | | | | | | + +-------+ +---------+---+---+ +-------+ +---------+---+---+ | Given | 11/24/19 | 12.5 mg | | | | | 18 10:54 | | | | | | PM PDT | | | | +-------+ +---------+---+---+ +---+---+ | | | +---+---+ + +-------+ +------+---+---+ | midazolam (PF) (VERSED) | Given | 11/25/19 | 1 mg | | | | injection INTRAPROCEDURE PRN, | | 18 3:45 | | | | | Starting 11/24/17 at 1454, | | PM PDT | | | | | Until 11/24/17 at 1545 | | | | | | + +-------+ +------+---+---+ +-------+ +------+---+---+ | Given | 11/25/19 | 1 mg | | | | | 18 3:27 | | | | | | PM PDT | | | | +-------+ +------+---+---+ | Given | 11/25/19 | 1 mg | | | | | 18 2:59 | | | | | | PM PDT | | | | +-------+ +------+---+---+ + +---+ | | | + +---+ | nitroglycerin (NITROSTAT) | | | tablet 0.4 mg 0.4 mg, | | | sublingual, EVERY 5 MINUTES | | | NEEDED, 3 doses, Starting Mon | | | 11/23/17 at 2025, Until Wed | | | 11/25/17 at 2203, chest pain | | + +---+ | | | + +---+ + +---------+ +---------+---+---+ | nitroGLYCERIN 100 mcg/mL NS | New Bag | 11/25/19 | 100 mcg | | | | Intracoronary Intracoronary | | 18 3:24 | | | | | intracoronary, INTRAPROCEDURE | | PM PDT | | | | | CONTINUOUS PRN, Starting Tue | | | | | | | 11/24/17 at 1524, Until Tue | | | | | | | 11/24/17 at 1524 | | | | | | + +---------+ +---------+---+---+ +---+---+ | | | +---+---+ + +-------+ +---------+---+---+ | nitroGLYCERIN 2 mg/10 mL (200 | Given | 11/25/19 | 100 mcg | | | | mcg/mL) in D5W IV INTRAPROCEDURE | | 18 3:02 | | | | | PRN, Starting 11/24/17 at | | PM PDT | | | | | 1502, Until 11/24/17 at 1502 | | | | | | + +-------+ +---------+---+---+ + +---+ | | | + +---+ | polyethylene glycol (MIRALAX) | | | packet 34 g 34 g, oral, THREE | | | TIMES DAILY NEEDED, Starting | | | 11/23/17 at 2025, Until Wed | | | 11/25/17 at 2204, 1st line - for | | | no BM for 2 days | | + +---+ | | | + +---+ + +-------+ +--------+---+---+ | potassium chloride SR (K-DUR) | Given | 11/25/19 | 40 mEq | | | | tablet 40 mEq 40 mEq, oral, | | 18 6:08 | | | | | ONCE, 1 dose, 11/24/17 at 0615 | | AM PDT | | | | + +-------+ +--------+---+---+ +---+---+ | | | +---+---+ + +-------+ +--------+---+---+ | potassium chloride SR (K-DUR) | Given | 11/25/19 | 40 mEq | | | | tablet 40 mEq 40 mEq, oral, | | 18 12:11 | | | | | TWICE DAILY, 2 doses, First dose | | PM PDT | | | | | (after last modification) on Tue | | | | | | | 11/24/17 at 0900, Last dose on Tue | | | | | | | 11/24/17 at 1300 | | | | | | + +-------+ +--------+---+---+ +-------+ +--------+---+---+ | Given | 11/25/19 | 40 mEq | | | | | 18 10:13 | | | | | | AM PDT | | | | +-------+ +--------+---+---+ +---+---+ | | | +---+---+ + +-------+ +--------+---+---+ | potassium chloride SR (K-DUR) | Given | 11/26/19 | 40 mEq | | | | tablet 40 mEq 40 mEq, oral, | | 18 8:39 | | | | | ONCE, 1 dose, 11/25/17 at 0715 | | AM PDT | | | | + +-------+ +--------+---+---+ +---+---+ | | | +---+---+ + +-------+ +--------+---+---+ | potassium chloride SR (K-DUR) | Given | 11/26/19 | 40 mEq | | | | tablet 40 mEq 40 mEq, oral, | | 18 1:19 | | | | | ONCE, 1 dose, 11/25/17 at 1200 | | PM PDT | | | | + +-------+ +--------+---+---+ + +---+ | | | + +---+ | senna-docusate (SENOKOT S) | | | 8.6-50 mg 1 tablet 1 tablet, | | | oral, TWICE DAILY, First dose on | | | 11/23/17 at 2215, Until | | | Discontinued | | + +---+ | | | + +---+ + +-------+ +------+---+---+ | sulfur hexafluoride | Given | 11/25/19 | 5 mL | | | | microspheres (LUMASON) IV 1-2 mL | | 18 9:15 | | | | | 1-2 mL, intravenous, ONCE, 1 | | AM PDT | | | | | dose, 11/24/17 at 0945 | | | | | | + +-------+ +------+---+---+ +---+---+ | | | +---+---+ + +-------+ +------+---+---+ | verapamil (ISOPTIN) injection | Given | 11/25/19 | 1 mg | | | | INTRAPROCEDURE PRN, Starting Tue | | 18 3:03 | | | | | 11/24/17 at 1503, Until Tue | | PM PDT | | | | | 11/24/17 at 1503 | | | | | | + +-------+ +------+---+---+ +---+---+ | | | +---+---+ documented in this encounter
--- OUTSIDE RECORDS SUMMARY | ~2019-12-15 | XMS | Encounter Summary ---
Demographics + + + | Address | [facility] | | | [id number] [place] [address] | | |[place] [address] | + + + | Home Phone | | + + + | Preferred Language | Unknown | + + + | Marital Status | Single | + + + | Hindu Affiliation | NRP | + + + [...] Team Providers + +------+ + | Care Hollow Ware Maker Name | Role | Phone | + +------+ + PCP | Unavailable | + +------+ + Encounter Details +--------+ + + + + | Date | Type | Department | Care Team | Description | +--------+ + + + + | 11/23/ | Results | [facility] | Aj Farnsworth | | | 2013 | Only | [address] | MD NAI Healy | | | | | [place], [place] | [facility] | | | | | [phone] | [address] | | | | | | [place] [address] | | | | | | [phone] | | | | | | | [...] | + +--------+ + + + | CAP GLU,POC | Routin | 11/23/2013 | | Results for this | | | e | 8:37 PM | | procedure are in the | | | | PDT | | results section. | + +--------+ + + + | X-RAY ANKLE 3 VIEWS | Routin | 11/23/2013 | | Results for this | | RIGHT | e | 8:20 PM | | procedure are in the | | | | PDT | | results section. | + +--------+ + + + | CBC W/DIFF, NO | Routin | 11/23/2013 | | Results for this | | REFLEX | e | 7:50 PM | | procedure are in the | | | | PDT | | results section. | + +--------+ + + + | BETA-HYDROXYBUTYRIC | Routin | 11/23/2013 | | Results for this | | ACID | e | 7:50 PM | | procedure are in the | | | | PDT | | results section. | + +--------+ + + + | COMPLETE METABOLIC | Routin | 11/23/2013 | | Results for this | | SET | e | 7:50 PM | | procedure are in the | | (NA,K,CL,CO2,BUN,CRE | | PDT | | results section. | | AT,GLUC,CA,AST,ALT,B | | | | | | JONATHAN TOTAL,ALK | | | | | | PHOS,ALB,PROT TOTAL) | | | | | + +--------+ + + + | UA DIPSTICK 10 DIP | Routin | 11/23/2013 | | Results for this | | W/O MICRO | e | 7:40 PM | | procedure are in the | | (AUTOMATED), POC | | PDT | | results section. | + +--------+ + + + | CAP GLU,POC | Routin | 11/23/2013 | | Results for this | | | e | 6:44 PM | | procedure are in the | | | | PDT | | results section. | + +--------+ + + + documented in this encounter Results CAP GLU,POC (11/23/2013 8:37 PM PDT) + +---------+ + + + | Component | Value | Ref Range | Performed | Pathologist | | | | | At | Signature | + +---------+ + + + | GLUCOSE, | 260 (H) | 70 - 100 mg/dL | [facility] | | | POC | | | [facility] | | + +---------+ + + + + + | Specimen | + + | | + + + + + + + | Performing | Address | City/State/Zipcode | Phone Number | | Organization | | | | + + + + + | [facility] | [address] | [place], [place] | | | LAB | | [id number] | | + + + + + | [facility] | [address] | [place], [place] | | | LAB | | [id number] | | + + + + + X-RAY ANKLE 3 VIEWS RIGHT (11/23/2013 8:20 PM PDT) + + | Specimen | + + | | + + + + + | Narrative | Performed At | + + + | RIGHT ANKLE, 3 views No comparison is available. | [facility] | | CLINICAL INFORMATION: Injury with pain. FINDINGS: Osseous | RADIOLOGY | | structures appear intact. Joint spaces and alignment are preserved. | | | There is mild medial and anterior tibiotalar joint spurring. A small | | | spur arises from the dorsal talar neck. There are moderate posterior | | | and small plantar calcaneal spurs. Soft tissue swelling of the ankle | | | is noted. IMPRESSION: 1. Soft tissue swelling, but no | | | fracture identified. 2. Mild tibiotalar degenerative joint | | | disease. 3. Moderate posterior and small plantar calcaneal | | | spurs. | | + + + + + | Procedure Note | + + | Interface, Lab Results [facility] - 04/21/2017 2:17 PM PDT RIGHT ANKLE, 3 viewsNo | | comparison is available.CLINICAL INFORMATION: Injury with pain. FINDINGS: Osseous | | structures appear intact. Joint spaces and alignment are preserved. There is mild medial | | and anterior tibiotalar joint spurring. A small spur arises from the dorsal talar neck. | | There are moderate posterior and small plantar calcaneal spurs. Soft tissue swelling of | | the ankle is noted.IMPRESSION: 1. Soft tissue swelling, but no fracture identified.2. | | Mild tibiotalar degenerative joint disease.3. Moderate posterior and small plantar | | calcaneal spurs. | |CLINICAL INFORMATION: Injury with pain. | | | | | | | |FINDINGS: Osseous structures appear intact. Joint spaces and alignment are preserved. There is mild medial and anterior tibiotalar joint spurring. A small spur arises from the dorsal talar neck. There are moderate posterior | |and small plantar calcaneal spurs. Soft tissue swelling of the ankle is noted. | | | | | | | |IMPRESSION: | | | |1. Soft tissue swelling, but no fracture identified. | | | | | | | |2. Mild tibiotalar degenerative joint disease. | | | | | | | |3. Moderate posterior and small plantar calcaneal spurs. | + + + + + + + | Performing | Address | City/State/Zipcode | Phone Number | | Organization | | | | + + + + + | [facility] | [address] | [place], [place] | [phone] | | | | [address] | | + + + + + COMPLETE METABOLIC SET (NA,K,CL,CO2,BUN,CREAT,GLUC,CA,AST,ALT,BILI TOTAL,ALK PHOS,ALB,PROT TOTAL) (11/23/2013 7:50 PM PDT) + + + + + + | Component | Value | Ref Range | Performed | Pathologist | | | | | At | Signature | + + + + + + | GLUCOSE, | 347 (H) | 70 - 100 mg/dL | [facility] | | | SERUM | | | [facility] | | + + + + + + | UREA | 20 | 7 - 22 mg/dL | [facility] | | | NITROGEN, | | | [facility] | | | SERUM | | | | | + + + + + + | CREATININE | 1.1 | 0.5 - 1.2 mg/dL | [facility] | | | SERUM | | | [facility] | | + + + + + + | BUN/CREATIN | 18 | 8 - 25 ratio | [facility] | | | INE RATIO | | | [facility] | | + + + + + + | EGFR | >60 | >=60 | [facility] | | | - | | mL/min/1.73m2 | [facility] | | | CAMBODIAN | | | | | + + + + + + | EGFR NON | >60 | >=60 | [facility] | | | -CLARISSA | | mL/min/1.73m2 | [facility] | | | RICAN | | | | | + + + + + + | SODIUM | 138 | 135 - 145 mEq/L | [facility] | | | | | | [facility] | | + + + + + + | POTASSIUM | 2.7 (AA) | 3.4 - 5.0 mEq/L | [facility] | | | | | | [facility] | | + + + + + + | CHLORIDE | 95 (L) | 98 - 110 mEq/L | [facility] | | | | | | [facility] | | + + + + + + | CO2 | 32 | 23 - 33 mEq/L | [facility] | | | | | | [facility] | | + + + + + + | CALCIUM, | 9.5 | 8.5 - 10.5 | [facility] | | | SERUM | | mg/dL | [facility] | | + + + + + + | TOTAL | 7.6 | 6.2 - 8.2 gm/dL | [facility] | | | PROTEIN | | | [facility] | | + + + + + + | ALBUMIN | 4.3 | 3.5 - 5.0 gm/dL | [facility] | | | SERUM | | | [facility] | | + + + + + + | GLOBULIN | 3.3 | 2.3 - 3.5 gm/dL | [facility] | | | LEVEL | | | [facility] | | + + + + + + | A/G RATIO | 1.3 | 0.9 - 2.0 ratio | [facility] | | | | | | [facility] | | + + + + + + | BILIRUBIN | 1.3 (H) | 0.2 - 1.2 mg/dL | [facility] | | | TOTAL | | | [facility] | | + + + + + + | ALK PHOS | 97 | 42 - 121 | [facility] | | | | | IntUnit/L | [facility] | | + + + + + + | ALT (SGPT) | 17 | 10 - 60 | [facility] | | | | | IntUnit/L | [facility] | | + + + + + + | AST(SGOT) | 19 | 12 - 45 | [facility] | | | | | IntUnit/L | [facility] | | + + + + + + + + | Specimen | + + | | + + + + + + + | Performing | Address | City/State/Zipcode | Phone Number | | Organization | | | | + + + + + | [facility] | [address] | [place] | | | LAB | | [id number] | | + + + + + | [facility] | [address] | [place], [place] | | | LAB | | [id number] | | + + + + + BETA-HYDROXYBUTYRIC ACID (11/23/2013 7:50 PM PDT) + +-------+ + + + | Component | Value | Ref Range | Performed | Pathologist | | | | | At | Signature | + +-------+ + + + | BETA-HYDROX | 0.08 | 0.02 - 0.27 | [facility] | | | YBUTYRIC | | mmol/L | [facility] | | | ACID | | | | | + +-------+ + + + + + | Specimen | + + | | + + + + + + + | Performing | Address | City/State/Zipcode | Phone Number | | Organization | | | | + + + + + | [facility] | [address] | [place], [place] | | | LAB | | [id number] | | + + + + + | [facility] | [address] | [place], [place] | | | LAB | | [id number] | | + + + + + CBC W/DIFF NO REFLEX (11/23/2013 7:50 PM PDT) + + + + + + | Component | Value | Ref Range | Performed | Pathologist | | | | | At | Signature | + + + + + + | WHITE CELL | 9.9 | 4.5 - 10.5 | [facility] | | | COUNT | | x10(3)/mcL | [facility] | | + + + + + + | RED CELL | 4.66 (L) | 4.70 - 6.10 | [facility] | | | COUNT | | x10(6)/mcL | [facility] | | + + + + + + | HEMOGLOBIN | 11.9 (L) | 14.0 - 18.0 | [facility] | | | | | gm/dL | [facility] | | + + + + + + | HEMATOCRIT | 35.1 (L) | 42.0 - 52.0 % | [facility] | | | | | | [facility] | | + + + + + + | MCV | 75.3 (L) | 80.0 - 100.0 fL | [facility] | | | | | | [facility] | | + + + + + + | MCH | 25.5 (L) | 27.0 - 34.0 pg | [facility] | | | | | | [facility] | | + + + + + + | MCHC | 33.9 | 32.0 - 36.0 | [facility] | | | | | gm/dL | [facility] | | + + + + + + | RDW | 16.0 (H) | 11.5 - 14.5 % | [facility] | | | | | | [facility] | | + + + + + + | PLATELET | 241 | 150 - 400 | [facility] | | | COUNT | | x10(3)/mcL | [facility] | | + + + + + + | MPV | 8.3 | 7.4 - 10.4 fL | [facility] | | | | | | [facility] | | + + + + + + | NEUTROPHIL | 72.9 (H) | 38.3 - 70.3 % | [facility] | | | % | | | [facility] | | + + + + + + | LYMPHOCYTE | 18.9 (L) | 21.8 - 48.9 % | [facility] | | | % | | | [facility] | | + + + + + + | MONOCYTE % | 6.8 | 2.9 - 9.2 % | [facility] | | | | | | [facility] | | + + + + + + | EOS % | 0.9 | 0.6 - 6.8 % | [facility] | | | | | | [facility] | | + + + + + + | BASO % | 0.5 | 0.0 - 1.7 % | [facility] | | | | | | [facility] | | + + + + + + | NEUTROPHIL | 7.2 (H) | 1.1 - 5.5 | [facility] | | | # | | x10(3)/mcL | [facility] | | + + + + + + | LYMPHOCYTE | 1.9 | 1.2 - 2.9 | [facility] | | | # | | x10(3)/mcL | [facility] | | + + + + + + | MONOCYTE # | 0.7 (H) | 0.1 - 0.6 | [facility] | | | | | x10(3)/mcL | [facility] | | + + + + + + | EOS # | 0.1 | 0.0 - 0.5 | [facility] | | | | | x10(3)/mcL | [facility] | | + + + + + + | BASO # | 0.0 | 0.0 - 0.1 | [facility] | | | | | x10(3)/mcL | [facility] | | + + + + + + + + | Specimen | + + | | + + + + + + + | Performing | Address | City/State/Zipcode | Phone Number | | Organization | | | | + + + + + | [facility] | [address] | [place], [place] | | | LAB | | [id number] | | + + + + + | [facility] | [address] | [place], [place] | | | LAB | | [address] | | + + + + + UA DIPSTICK 10 DIP W/O MICRO (AUTOMATED), POC (11/23/2013 7:40 PM PDT) + + + + + + | Component | Value | Ref Range | Performed | Pathologist | | | | | At | Signature | + + + + + + | COLOR (UA | Yellow | | [facility] | | | DIP), POC | | | [facility] | | + + + + + + | APPEARANCE | Clear | | [facility] | | | (UA DIP), | | | [facility] | | | POC | | | | | + + + + + + | GLUCOSE (UA | 500 (A) | Negative mg/dL | [facility] | | | DIP), POC | | | [facility] | | + + + + + + | BILIRUBIN | Negative | Negative | [facility] | | | (UA DIP), | | | [facility] | | | POC | | | | | + + + + + + | KETONES (UA | Negative | Negative mg/dL | [facility] | | | DIP), POC | | | [facility] | | + + + + + + | SPECIFIC | 1.015 | 1.003 - 1.029 | [facility] | | | GRAVITY (UA | | | [facility] | | | DIP), POC | | | | | + + + + + + | BLOOD (UA | Trace-lysed (A) | Negative | [facility] | | | DIP), POC | | | [facility] | | + + + + + + | PH (UA | 5.5 | 5.0 - 9.0 | [facility] | | | DIP), POC | | | [facility] | | + + + + + + | PROTEIN (UA | 100 (A) | Negative mg/dL | [facility] | | | DIP), POC | | | [facility] | | + + + + + + | UROBILINOGE | 0.2 | 1.0 mg/dL | [facility] | | | N (UA DIP), | | | [facility] | | | POC | | | | | + + + + + + | NITRITES | Negative | Negative | [facility] | | | (UA DIP), | | | [facility] | | | POC | | | | | + + + + + + | LEUKOCYTES | Negative | Negative | [facility] | | | (UA DIP), | | | [facility] | | | POC | | | | | + + + + + + | STATUS | [facility] ED | | [facility] | | | LOCATION | | | [facility] | | + + + + + + + + | Specimen | + + | | + + + + + + + | Performing | Address | City/State/Zipcode | Phone Number | | Organization | | | | + + + + + | [facility] | [address] | [place], [place] | | | LAB | | [address] | | + + + + + | [facility] | [address] | [place], [place] | | | LAB | | [address] | | + + + + + CAP SILVIA SHI (11/23/2013 6:44 PM PDT) + +---------+ + + + | Component | Value | Ref Range | Performed | Pathologist | | | | | At | Signature | + +---------+ + + + | GLUCOSE, | 373 (H) | 70 - 100 mg/dL | [facility] | | | POC | | | [facility] | | + +---------+ + + + + + | Specimen | + + | | + + + + + + + | Performing | Address | City/State/Zipcode | Phone Number | | Organization | | | | + + + + + | [facility] | [address] | [place], [place] | | | LAB | | [address] | | + + + + + | [facility] | [address] | [place], [place] | | | LAB | | [address] | | + + + + + documented in this encounter Visit Diagnoses Not on filedocumented in this encounter"
--- OUTSIDE RECORDS SUMMARY | ~2019-12-15 | XMS | Encounter Summary ---
Demographics + + + | Address | [facility] | | | [address] [place] [address] | | |[place] [address] | + + + | Home Phone | | + + + | Preferred Language | Unknown | + + + | Marital Status | Single | + + + | Jewish Affiliation | NRP | + + + | Race | White | + + + | Ethnic Group | Not or | + + + Author + + + | Author | [facility] | + + + | Organization | [facility] | + + + | Address | Unknown | + + + | Phone | Unavailable | + + + Support + + +---------+ + | Name | Relationship | Address | Phone | + + +---------+ + | Per NONE, PT | ECON | Unknown | Unavailable | + + +---------+ + Care Team Providers + +------+ + | Care Commercial Lending Vice President Name | Role | Phone | + [...] Mailcode: | | | | | | [place], [place] | [address] | | | | | | [address] | for Health | | | | | | Phone: | and Healing, | | | | | | [phone] | [address] | | | | | | Fax: | [place], [place] | | | | | | [phone] | [address] | | | | | | | Phone: | | | | | | | [phone] | | | | | | | Fax: | | | | | | | [phone] | +--------+--------+ + + + + Reason [...] + + | 11/23/ | Hospital | [facility] [address] | Chelsey Ritter MD | | | 2018 - | Encounter | [address] [id number] | [address] | | | | | [facility] | [place], [place] | | | 11/25/ | | [place], [place] | [address] | | | 2017 | | [address] | [phone] | | | | | [phone] | | | +--------+ + + + [...] Physician & Institution: Arlene Clemens DO Primary/Outpatient Rehab Department Manager: Needs to be established Inpatient Attending Physician: Chelsey Ritter MD Author/Discharging Provider: SHANTHI BERNARDO PA-C Admission Date: 11/23/2017 Discharge Date: 11/25/2017 Diagnoses Patients Hospital Problem List: Active Hospital Problems 1) *Coronary artery disease involving [place] coronary 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 At [facility], troponin was mildly elevated, EKG unremarka ble, CT chest showed extensive coronary calcification, and a 4.8cm ascending aortic aneurysm was identified. He was discharged and scheduled for an exercise stress test 11/23 which was positive (chest pain, diaphoresis, ST elevation then diffuse precordial TWI) and he was refe rred back to the ED. He was accepted in transfer to [facility] and initiated on a heparin gtt in [...] be referred to cardiac rehab and a Rehab Department Manager within the correctional system. He will need [...] suspect this is down-trending from late-presen ting NH that likely occurred on 11/10. EKG without [...] - will need to establish with a Rehab Department Manager - cardiac rehab #Ischemic cardiomyopathy: NYHA class [...] control HTN, previously followed by Cardiology at [facility] ( Priyanka Andre). BPs remain above [...] Indications: hyper tension, Left Ventricular Dysfunction following NH clopidogrel 75 mg Tab Commonly known as: [...] with one 3.0 x 15 mm Resolute Uledi KAIA to the mid LAD PCI with [...] Pt needs to be referred to a Rehab Department Manager for ongoing cardiac care 2. Pt needs [...] Shanthi Bernardo PA-C Instructor of Cardiovascular Medicine [facility] Cardiovascular [place] [facility] [place] I spent 36 minutes in coordination of care and xgap-hr-jacc with the patient and/or their s urrogate [...] to Expect at Home", log into your BIO-NEMS account at [email or web address]. You can enter Q672 in the "[facility]" search box. Not on BIO-NEMS? Review the BIO[employer]NEMS section of your After Visit Summary for directions on ho w to sign up. Current as of: April 30, 2016 Content Version: 11.5 1153-3675 [employer]pl[employer]. Care instructions adapted under license by [facility] [place]. If you have questions about a medical condition or this instr uction, always ask your healthcare professional. [employer] disclaims any anisha anty or liability for [...] | | | | | | following NH | Ventricular | | | | | | | Dysfunction | | | | | | | following NH | | | | | + + [...] Per PATIENT Referring Provider: Chelsey Ritter MD Supervisor [employer] Staff: Lane Ramachandran MD Procedure(s): Coronary Angiography Percutaneous Coronary Intervention (PCI) Indications: Unstable angina, High risk stress test Access: 5/6-Chilean RRA Post Procedure Access: No evidence of significant hematoma or bleeding Estimated Blood Loss: 30 mL Medications: Fentanyl 150 mcg Route: IV Heparin 714670 units Route: IV Midazolam 4 mg Route: [...] Note Date: 11/24/2017 Hospital Day: 1 Attending Rehab Department Manager: Chelsey Ritter MD Provider: SHANTHI BERNARDO PA-C Primary Care Provider: No Pcp Per PATIENT Outpatient Rehab Department Manager: needs to be established ID:Jerald Bender is an incarcerated 52 year old man with a history of DM, HTN, HLD, anemia w ho recently presented to [facility] ED on 11/20 for ~10-day history of [...] ED. He was accepted in transfer to [facility] and initiated on a heparin gtt in [...] found for: FREET4, TSH, TPOAB, THYROGLOB, THYROGLOBAB, A7OTYRV No results found for: A1C EKG 11/23/17: [...] CXR: clear lungs CTC w/wo contrast 11/20/17- [facility] Impression: 1. Ascending thoracic aortic aneurysm, 4.8cm [...] suspect this is down-trending from late-presen ting NH that likely occurred on 11/10. EKG without [...] - will need to establish with a Rehab Department Manager #Ischemic cardiomyopathy: NYHA class I, stage B. [...] control HTN, previously followed by Cardiology at [facility] ( Priyanka Javiermer). BPs remain above [...] ready to discharge by 11/25 back to snf Follow up: will need to establish with Cardiology through the correctional system CODE: full This patient was interviewed and examined by attending grant coordinator, Dr. Chelsey Ritter MD , who is in agreement with above described findings, assessment and plan. SHANTHI BERNARDO PA-C Cardiovascular Medicine [facility] Pager [phone] I spent 51 minutes in coordination of care and qovc-ii-hefx with the patient and/or their s urrogate [...] | | + +---------+--------+ + + | BELT OPERATOR INT | Imaging | Routin | | [...] | | POC | | PDT | saint regis coronary | results section. | | | | | artery of [place] | | | | | | heart with unstable | | | | | | angina pectoris | | | | | | ([facility]) | | + +--------+ + + + | CAPILLARY BLOOD | Routin | 11/25/2017 | NSTEMI (non-ST | Results for this | | GLUCOSE (NO CHG), | e | 7:47 AM | elevated myocardial | procedure are in the | | POC | | PDT | infarction) ([facility]) | results section. | + [...] | POC | | PDT | infarction) ([facility]) | results section. | + +--------+ + + + | CAPILLARY BLOOD | Routin | 11/24/2017 | NSTEMI (non-ST | Results for this | | GLUCOSE (NO CHG), | e | 6:49 PM | elevated myocardial | procedure are in the | | POC | | PDT | infarction) ([facility]) | results section. | + +--------+ + + + | CAPILLARY BLOOD | Routin | 11/24/2017 | NSTEMI (non-ST | Results for this | | GLUCOSE (NO CHG), | e | 5:09 PM | elevated myocardial | procedure are in the | | POC | | PDT | infarction) ([facility]) | results section. | + [...] | | | | PDT | infarction) ([facility]) | results section. | + +--------+ + + + | CAPILLARY BLOOD | Routin | 11/24/2017 | NSTEMI (non-ST | Results for this | | GLUCOSE (NO CHG), | e | 1:59 PM | elevated myocardial | procedure are in the | | POC | | PDT | infarction) ([facility]) | results section. | + [...] | POC | | PDT | infarction) ([facility]) | results section. | + +--------+ + + + | CAPILLARY BLOOD | Routin | 11/24/2017 | NSTEMI (non-ST | Results for this | | GLUCOSE (NO CHG), | e | 10:21 AM | elevated myocardial | procedure are in the | | POC | | PDT | infarction) ([facility]) | results section. | + [...] | POC | | PDT | infarction) ([facility]) | results section. | + [...] [place] | [address] | [place], [place] | | | LIZETTE POINT OF CARE | [address] | [address] | | | TESTS | | | [...] [place] | [address] | [place], [place] | | | JUNITO BAUER OF CARE | [address] | [address] | | | TESTS | | | [...] [place] | [address] | [place], [place] | | | JUNITO BAUER OF CARE | [address] | [address] | | | TESTS | | | [...] coronary arteries.3. Moderate conscious | | sedation.ATTENDING VALVE SETTER: Lane Ramachandran MD. INTERVENTIONAL CARDIOLOGY | | FELLOW:Felice Deleon MD.REFERRING VALVE SETTER:Chelsey Ritter MD.PREPROCEDURE | | DIAGNOSES:1. Unstable angina.2. [...] sedation by the nursing staff for 78 minutes.ACCESS:5/6-Chilean | | Slender Glidesheath in the right [...] Using the micropuncture technique, | | a 5/6-Chilean Slender Glidesheath was inserted in the right radial artery. A 5-Chilean | | Gabriel catheter was then advanced [...] a long J-wire for a | | 6-Chilean XB 3.5 guide catheter, which was used [...] exchanged over a long J-wire for a 6-Chilean | | AL 0.75 guide catheter, which [...] 2.75 x 34 mm | | Resolute Uledi drug-eluting stent was advanced over the guidewire [...] the bifurcation, it supplies one large septal night clerk with ostial 70% disease | | and [...] 3.0 x | | 15 mm Resolute Uledi drug-eluting stent.3. Successful percutaneous coronary intervention | | to the distal right coronary artery with one 2.75 x 34 mm Resolute Uledi drug-eluting | | stent.RECOMMENDATIONS:1. Return to floor [...] | report.BCN/MODLDD: 11/24/2017 16:39:53DT: 11/25/2017 06:01:21Job #: [id number] | |DISCUSSION: The images were reviewed in [...] |8. Stent: 3.0 x 15 mm Resolute Uledi drug-eluting stent. | | | |Lesion #2: | |1. Lesion location: Distal right coronary artery. | |2. Lesion type: C. | |3. Lesion length: 13 mm. | |4. Preintervention JESSICA flow: 3. | |5. Postintervention JESSICA flow: 3. | |6. Preintervention stenosis: 75%. | |7. Postintervention stenosis: 0%. | |8. Stent: 2.75 x 34 mm Resolute Uledi drug-eluting stent. | | | |IMPRESSION: | |1. Severe obstructive two-vessel coronary artery disease. | |2. Successful percutaneous coronary intervention to the mid left anterior descending yao ry artery with one 3.0 x 15 mm Resolute Uledi drug-eluting stent. | |3. Successful percutaneous coronary intervention to the distal right coronary artery with o ne 2.75 x 34 mm Resolute Uledi drug-eluting stent. | | | |RECOMMENDATIONS: | [...] |MINDI/GM | | | | | | /[id number] | + + CBC (HEMOGRAM) ONLY (11/25/2017 [...] | + + + + + | [facility] | [address] | [place] [address] | | | SERVICES, CORE | PARK [...] [facility] | [address] | [place] [address] | | | SERVICES, CORE | PARK [...] | | | LABORATORY | | | COOK ISLANDER | | | SERVICES, | | | [...] | + + + + + | [facility] | [address] | [place] [address] | | | SERVICES, CORE | VENTURA [...] [place] | [address] | [place], [place] | | | LIZETTE POINT OF CARE | [address] | [address] | | | TESTS | | | [...] [place] | [address] | [place], [place] | | | HILL, POINT OF CARE | [address] | [address] | | | TESTS | | | [...] DOMINICAM | [address] | [place], [place] | | | JUNITO BAUER OF CARYN | [address] | [address] | | | TESTS | | | [...] + + + | ECG | Prolonged [place] interval | | [facility] | | [...] OF | [address] | [place], [place] | | | CARDIOLOGY | [address] | [address] | | + + + + + [...] [place] | [address] | [place], [place] | | | JUNITO BAUER OF CARYN | [address] | [address] | | | TESTS | | | [...] [place] | [address] | [place], [place] | | | JUNITO BAUER OF CARYN | [facility] | [address] | | | TESTS | | | [...] | + + + + + | [facility] | [address] | [place] [address] | | | MONICO VILLEDA | VENTURA [...] | + + + + + | [facility] | [address] | [place] [address] | | | SERVICES, CORE | [address] | | | + + + [...] RUY | [address] | [place], [place] | | | JUNITO BAUER OF CARYN | [facility] | [address] | | | TESTS | | | [...] - [place] | [address] | [place], [place] | | | [place]INT OF [facility] | [address] | [address] | | | TESTS | | | [...] rformed At | + +--- + | [facility] DEPT OF | | [facility] Adult Echocardiography Laboratory [address] | [place] RDIOLOGY | | [place], [place] [address] Ph: | | | Pt Name: JERALD BENDER | | | Study Date/Time 11/24/2017 / 8:46:20 AMMRN: [id number] | | | Most recent prior: -Acc #: [id number] No. | | | previous echos: 0DOB: 1965 52 years Heart Rate: | | | 55 bpmHeight: 70.0 in Blood Pressure: | | | 90/57 mm/HgWeight: 242.0 lb Gender: | | | MBSA: 2.26 m2 Order ID: | | | [id number] Joint Machine Operator: Dustin Rahman MA, RDCSSonographer 2: Wes | [...] 4.80 21.2 | | | (prox) cm mm/d9Yuxdnalixi | | | of chamber size and geometry is accomplished through the incorporation | | | of linear, volumetric, and indexed values Wall Scoring: Report | | | electronically signed by: [id number] Hanane Porter MD (11/24/2017, | | | [...] | | | |Report electronically signed by: [id number] Hanane Porter MD (11/24/2017, 12:07:23 PM) | | | | | | | | | | | | Final | | + +--- + + + | Procedure Note | + + | Interface, Cardiology Results - 11/24/2017 12:07 PM Located within [facility] | | [facility] Echocardiography Laboratory [facility] | | [place], [place] [address] Pt Name: JERALD BENDER | | Study Date/Time 11/24/2017 / 8:46:20 AMN: [id number] Most recent | | prior: -Acc #: [id number] No. previous echos: 0DOB: 1965 52 years | | Heart Rate: 55 bpmHeight: 70.0 in Blood Pressure: 90/57 | | mm/HgWeight: 242.0 lb Gender: MBSA: 2.26 m2 Order | | ID: [id number] Joint Machine Operator: Dustin Rahman MA, RDCSSonographer 2: Wes | [...] fraction is 36.2 % as measured by Guzman's biplane [...] | 4.80 21.2 (prox) cm | | mm/i0Raakfljeso of chamber size and geometry is accomplished through the incorporation | | of linear, volumetric, and indexed values Wall Scoring: Report electronically signed by: | | [id number] Hanane Porter MD (11/24/2017, 12:07:23 PM) Final [...] | | | |Report electronically signed by: [id number] Hanane Porter MD (11/24/2017, 12:07:23 PM) | | | | | | | | Final | + + + + + + + | Performing | Address | City/State/Zipcode | Phone Number | | Organization | | | | + + + + + | [facility] | [address] | [place], [place] | | | CARDIOLOGY | [address] | [address] | | + + + + + [...] [place] | [address] | [place], [place] | | | JUNITO BAUER OF CARE | [address] | [address] | | | TESTS | | | [...] [facility] | [address] | [place] [address] | | | SERVICES, CORE | PARK [...] 39.6 (H) | 26.0 - 36.0 | LASU | | | | | seconds | [...] [facility] | [address] | [place] [address] | | | SERVICES, CORE | PARK [...] | | | LABORATORY | | | COOK ISLANDER | | | SERVICES, | | | [...] | + + + + + | [facility] | [address] | [place] [address] | | | SERVICES, CORE | VENTURA [...] [facility] | [address] | [place] [address] | | | [place]ICO VILL[place]A | VENTURA [...] + + + | ECG | Prolonged [place] interval | | [facility] | | [...] DEPT OF | [address] | [place], [place] | | | CARDIOLOGY | [address] | [address] | | + + + + + X-RAY PORTABLE CHEST 1 VIEW (11/23/2017 10:00 PM PDT) + + | Specimen | + + | | + + + + + | Narrative | Performed At | + + + | STUDY: [place] CHEST 1 VIEW HISTORY: Chest pain. COMPARISON: [...] Note | + + | Service Account, [facility] Res In Interface - 11/24/2017 8:22 AM PDT STUDY: [place] CHEST 1 | | VIEWHISTORY: Chest pain.COMPARISON: [...] | | + +---------+ + + | [facility] RADIOLOGY | | | | | VOICE [...] RUY | [address] | [place], [place] | | | [facility] | [address] | [address] | | | TESTS | | | [...] | + + + + + | [facility] | [address] | [place] [address] | | | SERVICES, CORE | VENTURA [...] | [facility] | | considered for monitoring lobsterman glycemic control in patients with: | LABORATORY [...] [facility] | [address] | [place] [address] | | | SERVICES, SPECIAL | VENTURA [...] [facility] | [address] | [place] [address] | | | MON[address] VILLEDA | VENTURA [...] | + + + + + | [facility] | [address] [facility] | [place] [address] | | | SERVICES, CORE | PARK [...] [facility] | [address] | [place] [address] | | | SERVICES, CORE | PARK [...] | + + + + + | [facility] | [address] | [place] [address] | | | SERVICES, CORE | PARK [...] [facility] | [address] | [place] [address] | | | SERVICES, CORE | PARK [...] | | | LABORATORY | | | COOK ISLANDER | | | SERVICES, | | | [...] | + + + + + | [facility] | [address] | [place] [address] | | | SERVICES, CORE | [address] | | | + + + + + CARDIOLOGY (11/23/2017 12:00 AM PDT) + + + | Narrative | Performed At | + + + | | | + + + documented in this encounter Visit Diagnoses + + | Diagnosis | + + | Coronary artery disease involving [place] coronary artery of [place] heart with unstable | | angina pectoris [...]
--- OUTSIDE RECORDS SUMMARY | ~2019-12-15 | XMS | Encounter Summary ---
Demographics + + + | Address | [facility] | | | [address] [place] [address] | | |[place] [address] | + + + | Home Phone | | + + + | Preferred Language | Unknown | + + + | Marital Status | Single | + + + | Latter-Day Affiliation | NRP | + + + | Race | White | + + + | Ethnic Group | Not or | + + + Author + + + | Author | [place] [facility] | + + + | Organization | [facility] | + + + | Address | Unknown | + + + | Phone | Unavailable | + + + Support + + +---------+ + | Name | Relationship | Address | Phone | + + +---------+ + | Per NONE, PT | ECON | Unknown | Unavailable | + + +---------+ + Care Team Providers + +------+ + | Care Lap Polisher Name | Role | Phone | + +------+ + | No Pcp Per Patient | PCP | Unavailable | + +------+ + Encounter Details +--------+ + + + + | Date | Type | Department | Care Team | Description | +--------+ + + + + | 11/25/ | Document-Sc | UNKNOWN DEPARTMENT | Unknown . | | | 2018 | anned | [address] [facility] | | | | | | [address] | | | | | | [place], [place] | | | | | | [address] | | | +--------+ + + + [...]
--- OUTSIDE RECORDS SUMMARY | ~2019-12-15 | XMS | Encounter Summary ---
Demographics + + + | Address | [facility] | | | [address] [place] [address] | | |[place] [address] | + + + | Home Phone [...] Team Providers + +------+ + | Care Electronic Gluer Name | Role | Phone | + [...] NAI [facility] | | | | | [place], [place] | [facility] | | | | | [address] | [address] | | | | | | [place] [address] | | | | | | [phone] | | | | | | | [...] [facility] | [address] | [place], [place] | | | LAB | | [address] | | + + + + + | [facility] | [address] | [place], [place] | | | LAB | | [address] | | + + + + + [...] | + + | Interface, Lab Results [facility] - 04/21/2017 2:17 PM PDT RIGHT [...] RADIOLOGY | [address] | [place], [place] | [phone] | | | | [address] | | + + + + + [...] mL/min/1.73m2 | [facility] | | | [place] | | | | | + + [...] [place] | | | LAB | | [address] | | + + + + + | [facility] | [address] | [place], [place] | | | LAB | | [address] | | + + + + + [...] [facility] | [address] | [place], [place] | | | LAB | | [address] | | + + + + + | [facility] | [address] | [place], [place] | | | LAB | | [address] | | + + + + + [...] [facility] | [address] | [place], [place] | | | LAB | | [address] | | + + + + + | [facility] | [address] | [place], [place] | | | LAB | | [address] | | + + + + + [...] [facility] | [address] | [place], [place] | | | LAB | | [address] | | + + + + + | [facility] | [address] | [place], [place] | | | LAB | | [address] | | + + + + + [...] [facility] | [address] | [place], [place] | | | LAB | | [address] | | + + + + + | [facility] | [address] | [place], [place] | | | LAB | | [address] | | + + + + + documented in this encounter Visit Diagnoses Not on filedocumented in this encounter"
--- OUTSIDE RECORDS SUMMARY | ~2019-12-15 | XMS | Encounter Summary ---
Demographics + + + | Address | [facility] | | | [address] [place] [address] | | |[place] [address] | + + + | Home Phone [...] Team Providers + +------+ + | Care Orchestra Director Name | Role | Phone | + [...] [facility] | | | | Note-Transc | [place], [place] | [facility] | | | | ribed | [phone] | [address] | | | | | | [place] [address] | | | | | | [phone] | | | | | | | [...]
--- OUTSIDE RECORDS SUMMARY | ~2019-12-15 | XMS | Encounter Summary ---
Demographics + + + | Address | [facility] | | | [address] [place] [address] | | |[place] [address] | + + + | Home Phone | | + + + | Preferred Language | Unknown | + + + | Marital Status | Single | + + + | Mandaen Affiliation | NRP | + + + | Race | White | + + + | Ethnic Group | Not or | + + + Author + + + | Author | [place] [facility] | + + + | Organization | [facility] [employer] [facility] | + + + [...] Team Providers + +------+ + | Care Air Export Operations Agent Name | Role | Phone | + [...] | | 2018 | anned | [address] [facility] | | | | | | [address] | | | | | | [place], [place] | | | | | | [address] | | | +--------+ + + + [...]
[2019-12-15] MEDS ORDERED: NOVOLIN N100 UNIT/1 SUB-Q (18:35)
[2019-12-15] MEDS ORDERED: LIPITOR80 MG GT (18:36)
[2019-12-15] MEDS ORDERED: CARVEDILOL12.5 MG PO (18:36)
[2019-12-15] MEDS ORDERED: ASPIR 8181 MG PO (18:36)
[2019-12-15] MEDS ORDERED: HYDROCHLOROTH12.5 M1 PO (18:37)
[2019-12-15] MEDS ORDERED: KEFLEX500 MG PO (21:01)
[2019-12-15] MEDS ORDERED: K-TAB ER20 MEQ PO (21:01)
[2019-12-15] MEDS ORDERED: BACTRIM DS TAB1 EACH PO (21:01)
== END 2019-12-15 21:44 | disposition home or self-care (01) ==
LOC: ED 18:14
DX: L02.31 Cutaneous abscess of buttock (principal); E11.9 Type 2 diabetes mellitus without complications; I10 Essential (primary) hypertension; E78.5 Hyperlipidemia, unspecified; Z88.1 Allergy status to other antibiotic agents; Z79.899 Other long term (current) drug therapy; Z79.82 Long term (current) use of aspirin; Z79.02 Long term (current) use of antithrombotics/antiplatelets; Z79.4 Long term (current) use of insulin
CPT/HCPCS: 80053; 83605; 85025; 96365; 96375; 99283-25; J2405; J3370; J7030

== ENCOUNTER 2021-05-12 11:00 | Emergency (ER) | payer OTHER ==
[~2021-05-12] VITALS: Ht 177.8 cm; Wt 107.0 kg
[~2021-05-12 11:00] MED LIST changes: +ASPIR 8181 MG PO; +BACTRIM DS TAB1 EACH PO; +CARVEDILOL12.5 MG PO; +HYDROCHLOROTH12.5 M1 PO; +K-TAB ER20 MEQ PO; +KEFLEX500 MG PO; +LIPITOR80 MG GT; +NOVOLIN N100 UNIT/1 SUB-Q
--- NOTE | 2021-05-12 18:57 | EKG ---
[facility] [address] [facility] [place] [address] Signed Sinus bradycardia with 1st degree AV block Nonspecific intraventricular block Abnormal ECG When compared with ECG of 14-MAY-2018 19:21, No significant change was found Confirmed by WENDY PINEDA MD ([id number]) on 05/12/2021 6:57:01 PM Electronically Signed By: WENDY PINEDA MD 05/12/21 1857 PATIENT NAME: JERALD BENDER Electrocardiogram DATE OF : 69 PHYSICIAN: WENDY PINEDA MD REPORT #: [id number] REPORT IS CONFIDENTIAL AND NOT TO BE RELEASED WITHOUT AUTHORIZATION
== END 2021-05-12 14:15 | disposition home or self-care (01) ==
LOC: ED 11:00
DX: R55 Syncope and collapse (principal); S00.211A Abrasion of right eyelid and periocular area, initial encounter; E87.6 Hypokalemia; E11.9 Type 2 diabetes mellitus without complications; I10 Essential (primary) hypertension; E78.5 Hyperlipidemia, unspecified; D50.9 Iron deficiency anemia, unspecified; W22.8XXA Striking against or struck by other objects, initial encounter; Z88.1 Allergy status to other antibiotic agents; Z79.899 Other long term (current) drug therapy; Z79.4 Long term (current) use of insulin
CPT/HCPCS: 70450; 71045; 71275; 73560; 73660; 80053; 84484; 85025; 93005; 93010; 99285-25; J7030; Q9967